=== PATIENT | female | born 1955 | race Caucasian/White ===

== ENCOUNTER → 2017-09-01 | Outpatient (CLI) | payer MEDICARE, OTHER ==
[2017-09-01 09:12] LABS: HCT 41.3 % (34.0-46.0); HGB 13.8 gm/dL (11.4-16.0); MCH 31.9 pg (25.0-35.0); MCHC 33.5 g/dL (31.0-37.0); MCV 95.2 fL (80.0-100.0); Platelet Count 118 k/uL (150-450); RBC 4.33 m/uL (3.80-5.40); RDW 13.9 % (11.5-15.5); WBC 6.1 k/uL (3.8-10.6)
[2017-09-01 09:25] LABS: Total Protein 6.5 g/dL (6.3-8.2)
[2017-09-01 09:27] LABS: Calcium 10.2 mg/dL (8.4-10.2); Potassium 4.3 mmol/L (3.5-5.1); Total Bilirubin 1.1 mg/dL (0.2-1.3)
[2017-09-01 09:48] LABS: Albumin 3.6 g/dL (3.5-5.0)
--- NOTE | 2017-09-01 16:27 | BD ---
EXAMINATION TYPE: MG DEXA axial skeleton. DATE OF EXAM: 09/01/2017 COMPARISON: NONE CLINICAL HISTORY: 61-year-old female asymptomatic postmenopausal state Height: 68 IN Weight: 170 LBS FRAX RISK QUESTIONS: Alcohol (3 or more units per day): NO Family History (Parent hip fracture): NO Glucocorticoids (More than 3mos): NO (Ex: prednisone, prednisolone, methylprednisolone, dexamethasone, and hydrocortisone). History of Fracture in Adulthood: NO Secondary Osteoporosis: 1. Type 1 Diabetes: NO 2. Hyperthyroidism: NO 3. Menopause before 45: YES AGE 41 4. Malnutrition: NO 5. Chronic liver disease: NO Rheumatoid Arthritis: NO Current Tobacco Use: NO RISK FACTORS HISTORY OF: Surgery to Hip(right/left): YES BRITTNEE HIP REPLACEMENTS When: PT UNSURE WHEN Active: NO Postmenopausal woman: AGE 41 Lost more than 2 inches in height since high school: YES 2-3" Frequent falls: YES MEDICATIONS: Additional Medications: PT HAS NO IDEA WHAT MEDICATIONS SHE TAKES EXAM MEASUREMENTS: Bone mineral densitometry was performed using the [employer] System. Bone mineral density as measured about the Lumbar spine is: ----- L1-L4(G/cm2): 0.912 T Score Values are as follows: ----- L2: -1.7 ----- L3: -1.7 ----- L4: -2.5 ----- L1-L4: -2.2 Bone mineral density BASELINE PT HAS HAD BRITTNEE HIP REPLACEMENTS. IMPRESSION: Osteopenia (T Score between -2.5 and -1). However, note that measurements border on osteoporosis. Shira ging only performed of the lumbar spine given prior bilateral hip replacements. There is slightly increased risk of fracture and the patient may be considered for treatment. Re-Screen 2-5 years. NOTE: T-SCORE=SD OF THE YOUNG ADULT MEAN.
--- NOTE | 2017-09-02 11:07 | MM ---
Reason for exam: screening (asymptomatic). Last mammogram was performed 12 years and 5 months ago. History: Patient is postmenopausal and is nulliparous. Family history of breast cancer in grandmother. Benign stereotactic core biopsy of the left breast, June 05, 2000. Excisional biopsy of the left breast, 1994. Excisional biopsy of the right breast, 1994. Physical Findings: A clinical breast exam by your physician is recommended on an annual basis and results should be correlated with mammographic findings. MG 3D Screening Mammo W/Cad Bilateral CC and MLO view(s) were taken. No prior studies available for comparison. The breast tissue is heterogeneously dense. This may lower the sensitivity of mammography. Finding: There are typically benign round calcifications in both breasts, greaster in the left breast. Previous mammotome biopsy in the left breast. There is no discrete abnormality. ASSESSMENT: Benign, BI-RAD 2 RECOMMENDATION: Routine screening mammogram of both breasts in 1 year.
== END | disposition home or self-care (01) ==
LOC: RADBDWWP 08:39
PROVIDERS: ATTEND Internal Medicine
DX: Z12.31 Encounter for screening mammogram for malignant neoplasm of breast (principal); M85.80 Other specified disorders of bone density and structure, unspecified site; Z13.9 Encounter for screening, unspecified; Z13.220 Encounter for screening for lipoid disorders; Z78.0 Asymptomatic menopausal state
CPT/HCPCS: 36415; 77063; 77067; 77080; 80053; 80061; 85027

== ENCOUNTER 2018-05-09 14:11 | Emergency (ER) | payer MEDICARE, OTHER ==
[2018-05-09 14:17] VITALS: BP 153/82; PULSE 110; RESP 18
--- NOTE | 2018-05-09 14:45 | ED ---
Fall HPI - General Chief Complaint: Fall Stated Complaint: Fall/Facial Injuries Time Seen by Provider: 05/09/18 14:22 Source: patient, RN notes reviewed, old records reviewed Mode of arrival: wheelchair - History of Present Illness Initial Comments: Patient is a 62-year-old female who presents the emergency department today with chief complaint of tripping and falling over her walker. Patient reports that she fell face first in her walker. She has bruising and swelling over the right eye right cheek and nose. She does have a laceration over her lip as well. Patient has a history of Marfan syndrome. Patient states that she is on [place]. Patient denies any loss of consciousness. She denies emergency department was placed in a c-collar. Patient reports she has had some pain within her right thumb as well but denies any other extremity or truncal injury. - Related Data Previous Rx's Medication Instructions Recorded Amoxic-Pot Clav 875-125Mg 1 tab PO Q12HR #20 tablet 05/09/18 [Augmentin 875-125] Erythromycin Ophth Oint [Romycin 1 applic RIGHT EYE QID #1 tube 05/09/18 Ophth Oint] Allergies Allergy/AdvReac Type Severity Reaction Status Date / Time No Known Allergies Allergy Verified 05/09/18 14:17 Review of Systems ROS Statement: Those systems with pertinent positive or pertinent negative responses have been documented in the HPI. ROS Other: All systems not noted in ROS Statement are negative. Past Medical History Past Medical History: Atrial Fibrillation History of Any Multi-Drug Resistant Organisms: None Reported Additional Past Surgical History / Comment(s): hip and bilateral knees Past Psychological History: No Psychological Hx Reported Smoking Status: Never smoker Past Alcohol Use History: None Reported Past Drug Use History: None Reported General Exam Limitations: no limitations General appearance: alert, in no apparent distress Head exam: Present: normocephalic, normal inspection. Absent: atraumatic Eye exam: Present: periorbital swelling (contusion over right eye, laceration 2 cm of upper R eyelid), periorbital tenderness. Absent: normal appearance ENT exam: Present: mucous membranes moist, TM's normal bilaterally, other ( laceration 1cm over bridge of nose. Soft tissue swelling of nose. Patient has no evidence of septal hematoma. ). Absent: normal exam Neck exam: Present: normal inspection. Absent: tenderness, meningismus, lymphadenopathy Respiratory exam: Present: normal lung sounds bilaterally. Absent: respiratory distress, wheezes, rales, rhonchi, stridor Cardiovascular Exam: Present: regular rate, normal rhythm, normal heart sounds. Absent: systolic murmur, diastolic murmur, rubs, gallop, clicks GI/Abdominal exam: Present: soft, normal bowel sounds. Absent: distended, tenderness, guarding, rebound, rigid Right Elbow exam: Present: normal inspection, full ROM Forearm Wrist exam: Present: normal inspection, full ROM Hand Wrist exam: Present: tenderness (thumb), swelling (to R thumb, she pas pain with flexion from DIP ). Absent: normal inspection Neuro motor exam: Present: wrist extension intact, thumb opposition intact, thumb IP flexion intact, thumb adduction intact, fingers 2-5 abduction intact Back exam: Present: normal inspection Neurological exam: Present: alert Psychiatric exam: Present: normal affect, normal mood Course Vital Signs 05/09/18 14:13 Pulse Rate 110 H Respiratory 18 Rate Blood Pressure 153/82 O2 Sat by Pulse 99 Oximetry Procedures - Laceration Laceration #1 Site: face (R eyelid) Size (cm): 2 Description: linear Anesthetic Used: lidocaine 1% Anesthesia Technique: local infiltration Amount (mls): 2 Pre-repair: wound explored Type of Sutures: nylon Size of Sutures: 6-0 Number of Sutures: 2 Technique: simple, interrupted Patient Tolerated Procedure: well, no complications Laceration #2 Site: face (nose) Size (cm): 1 Description: flap Depth: simple, single layer Anesthetic Used: lidocaine 1% Anesthesia Technique: local infiltration Amount (mls): 2 Pre-repair: wound explored, irrigated extensively Type of Sutures: nylon Size of Sutures: 6-0 Number of Sutures: 3 Technique: simple, interrupted Patient Tolerated Procedure: well, no complications Laceration #3 Site: lip Size (cm): 3 Description: irregular Depth: simple, single layer Anesthetic Used: lidocaine 1% Anesthesia Technique: local infiltration Amount (mls): 3 Pre-repair: wound explored, irrigated extensively Type of Sutures: other (rapide ) Size of Sutures: 5-0 Number of Sutures: 7 Technique: simple, interrupted Patient Tolerated Procedure: well, no complications - Orthopedic Splinting/Casting Injury #1 Side: right Upper Extremity Injury Location: hand Upper Extremity Immobilizer: thumb spica, Yong wrap, synthetic pre-padded splint Additional Comments: Patient is NV intact. Medical Decision Making - Medical Decision Making 62 year old female on eliquis presents with trip fall on her walker, and falling on R hand and face. Patient has significant hematoma developing on nose and R eye. She had 2cm laceration over R eyelid that was closed, and 1cm laceration over Nose that was closed wit suture. She has pain withROM of right thumb, on my impressionof xray evidence of osteoarthritis, and appear to be small fracture at DIP of R thumb. Patient placed in thumb spica splint, givne referral to orthopedic. Patient underwent CT facial bones, brain, and cspine. CT brain shows old infarct, negative for acute process. She has evidence of nasla bone fracture. No evidence of septal hematoma. She has bruising to lip, and loaceration in lip that was closed with suture as well. Patient will be placed on augmenting due to open nasal bone fracture with laceration. Patient has been adcised on head injury instructions. She is going hoem with2 caregivers that will monitor her. Discussed PCP ortho and ENT follow up. - Radiology Data Radiology results: report reviewed Degenerative first-degree C4-C5 spinal listhesis. No fracture. Spondylitic changes. 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 No acute intracranial abnormality noted. Nasal bone fracture. Right side. No soft tissue swelling. Small maxillary sinus mucous retention cyst. Is traumatic Marta arthritis and carpets. Osteopenia. No acute fracture noted. N Disposition Clinical Impression: Fall, Facial laceration, Thumb fracture, Nasal fracture, Facial contusion Disposition: HOME SELF-CARE Condition: Good Instructions: Nasal Fracture (ED), Thumb Fracture (ED) Additional Instructions: Patient has a follow-up with ENT specialist. Take the medication as prescribed. Patient needs to be monitored for the next 24-48 hours. If there is any signs of altered mental status including change in behavior, responsiveness or severe vomiting Patient needs return to emergency department immediately for reevaluation. Prescriptions: Amoxic-Pot Clav 875-125Mg [Augmentin 875-125] 1 tab PO Q12HR #20 tablet Erythromycin Ophth Oint [Romycin Ophth Oint] 1 applic RIGHT EYE QID #1 tube Is patient prescribed a controlled substance at d/c from ED?: No Referrals: Justo Echeverria MD [Primary Care Provider] - 1-2 days Jason Godfrey MD [STAFF PHYSICIAN] - 1-2 days Samy Beavers MD [STAFF PHYSICIAN] - 1-2 days Time of Disposition: 16:12
--- NOTE | 2018-05-09 15:21 | CT ---
EXAMINATION TYPE: CT brain eh quijano DATE OF EXAM: 05/09/2018 COMPARISON: None HISTORY: trauma, fall today. no contrast. no previous. CT DLP: 2065.1 (combined) mGycm Automated exposure control for dose reduction was used. TECHNIQUE: CT scan of the head and cervical spine are performed without contrast. FINDINGS: There is some cerebral cortical atrophy. There is no mass effect nor midline shift. There is no sign of intracranial hemorrhage. There is old right posterior frontal lobe encephalomalacia. T here is hypodensity in the anterior right internal capsule. There is thickening of the calvarium. The vertebra have fairly normal alignment. There is 4 mm anterior subluxation of C4 in relation to C5 without significant narrowing of the spinal canal. There is narrowing of C5-6 C6-7 disc spaces with spur formation. Facet joints are intact. The skull base is intact. There is no evidence of a fracture . IMPRESSION: There is degenerative first-degree C4-5 spondylolisthesis. No fracture. Spondylotic changes. Old right frontal lobe infarct and chronic small vessel ischemia. No acute intracranial abnormality.
--- NOTE | 2018-05-09 15:24 | CT ---
EXAMINATION TYPE: CT facial bones wo con DATE OF EXAM: 05/09/2018 COMPARISON: None HISTORY: trauma, fall today. no contrast. no previous. Pain CT DLP: 2065.1 (combined) mGycm Automated exposure control for dose reduction was used. TECHNIQUE: CT scan of the sinuses is performed without contrast, axial images are obtained, coronal r eformatted images are also reviewed. FINDINGS: The mandibular ring is intact. Zygomatic arches are intact. Maxilla is intact. There are sm all mucous retention cysts in the maxillary sinuses. There is fracture of the nasal bone on the right side with some depression of the fragments up to 4 mm. There is right side periorbital and nasal sof t tissue swelling. There is no evidence of retro-orbital mass. There is no blowout fracture. There is moderate osteoarthritis in the right temporomandibular joint. IMPRESSION: Nasal bone fracture. Right side periorbital soft tissue swelling. Small maxillary sinus m ucous retention cysts.
[2018-05-09] MEDS ORDERED: DIPH,PERTUS(ACELL)TETVAC-LF 0.5 ML VIAL IM ONE (15:33)
[2018-05-09] MEDS ORDERED: LIDOCAINE 1% INJ 10MG/ML (20 ML MDV) SQ STA (15:33)
[2018-05-09] MEDS ORDERED: AMOXIC-POT CLAV 875MG STARTER 2 EACH TABLET PO STA (15:33)
--- NOTE | 2018-05-09 15:45 | XR ---
EXAMINATION TYPE: XR hand complete RT DATE OF EXAM: 05/09/2018 COMPARISON: NONE HISTORY: Pain TECHNIQUE: 3 views FINDINGS: Metacarpal appear intact. There is narrowing of the joint spaces. There is deformity of the lunate and scaphoid consistent with old fractures. I see no acute fracture. 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 Osteopenia. No acute fracture seen.
== END 2018-05-09 17:24 | disposition home or self-care (01) ==
LOC: EC 14:11
DX: S02.2XXB Fracture of nasal bones, initial encounter for open fracture (principal); S62.521A Displaced fracture of distal phalanx of right thumb, initial encounter for closed fracture; S01.111A Laceration without foreign body of right eyelid and periocular area, initial encounter; M19.041 Primary osteoarthritis, right hand; Z86.73 Personal history of transient ischemic attack (TIA), and cerebral infarction without residual deficits; S01.511A Laceration without foreign body of lip, initial encounter; M43.12 Spondylolisthesis, cervical region; M47.812 Spondylosis without myelopathy or radiculopathy, cervical region; I67.82 Cerebral ischemia; J34.1 Cyst and mucocele of nose and nasal sinus; M85.88 Other specified disorders of bone density and structure, other site; Q87.40 Marfan syndrome, unspecified; Z79.899 Other long term (current) drug therapy; Z23 Encounter for immunization; W01.0XXA Fall on same level from slipping, tripping and stumbling without subsequent striking against object, initial encounter; Y93.01 Activity, walking, marching and hiking; Y92.22 Religious institution as the place of occurrence of the external cause
CPT/HCPCS: 99284 ×2; 90471 ×2; 12014 ×2; 29125 ×2; 73130; 72125; 70486; 70450; 90715; J2001

== ENCOUNTER 2018-10-17 19:57 | Emergency (ER) | payer MEDICARE, OTHER ==
[2018-10-17 20:12] VITALS: BP 129/85; PULSE 97; RESP 18; TEMP 98.3
--- NOTE | 2018-10-17 20:41 | ED ---
General Adult HPI - General Chief complaint: Abdominal Pain Stated complaint: Abd pain Time Seen by Provider: 10/17/18 20:21 Source: patient Mode of arrival: ambulatory Limitations: physical limitation - History of Present Illness Initial comments: Dictation was produced using [employer] dictation software. please excuse any grammatical, word or spelling errors. Chief Complaint: 63-year-old female with past medical history of pancreatic disease, Marfan syndrome, atrial fibrillation presents with bruising and pain to the left groin. History of Present Illness: 63-year-old female presents today with bruising and pain to the left groin area. Patient states that she noticed this morning. Patient has a history of pancreatic issues that were evaluated at [facility] several years back. Patient states she saw a specialist regarding her pancreatic issue however they decided not to do any operative intervention. P atient states she has no nausea vomiting. Denies any back pain. Denies any abdominal pain. 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 The ROS documented in this emergency department record has been reviewed and confirmed by me. Those systems with pertinent positive or negative responses have been documented in the HPI. All other systems are other negative and/or noncontributory. PHYSICAL EXAM: General Impression: Alert and oriented x3, not in acute distress HEENT: Normocephalic atraumatic, extra-ocular movements intact, pupils equal and reactive to light bilaterally, mucous membranes moist. Cardiovascular: Heart regular rate and rhythm, S1&S2 audible, no murmurs, rubs or gallops Chest: Lungs clear to auscultation bilaterally, no rhonchi, no wheeze, no rales Abdomen: Bowel sounds present, abdomen soft, , non-distended, no organomegaly, 10 x 10 cm area of bruising over the left groin, no palpable mass with Valsalva Musculoskeletal: Pulses present and equal in all extremities, no peripheral edema Motor: no focal deficits noted Neurological: CN II-XII grossly intact, no focal motor or sensory deficits noted Skin: Intact with no visualized rashes Psych: Normal affect and mood ED course: 63-year-old female presents with chief complaint of left groin bruising and pain. Patient has a history of nonoperable pancreatic disease. Vital signs upon arrival are within acceptable limits. Patient's well- appearing. Laboratory evaluation obtained. CBC unremarkable. Patient has thrombocytopenia of 123. Metabolic panel is unremarkable. Cardiac enzymes negative. Chest x- ray shows possible pneumonia. Patient does not have any symptoms of coughing or shortness of breath or hypoxia. CT abdomen and pelvis with contrast was obtained demonstrating soft tissue mass at the level of the pancreatic head. Is also possible pneumonitis of the right lung base. There is also a 4.5 cm abdom inal aortic aneurysm with ectasia at the common iliac artery. Given the findings of bruising in the groin area there is concern for retroperitoneal bleeding. CT does not suggest any evidence of active retroperitoneal bleeding at this time. Patient still mildly symptomatic at the lower abdominal area. Given degree of symptoms and bruising to the groin area and is concerned that there is retroperitoneal bleeding. Discussed patient case with [facility] to accept the patient. Patient case was discussed with Dr. Escudero who is willing to accept the transfer. EKG interpretation: Ventricular rate 89, atrial fibrillation, QS 126, QTC 452. No CA prolongation, no QTC prolongation, no ST or T-wave changes noted. No old EKG for comparison - Related Data Home Medications Medication Instructions Recorded Confirmed Alendronate Sodium [Fosamax] 70 mg PO MORGAN 10/17/18 10/17/18 Apixaban [Eliquis] 5 mg PO BID 10/17/18 10/17/18 Calcium Carbonate/Vitamin D3 1 cap PO BID 10/17/18 10/17/18 [Calcium 600-Vit D3 500 Softgel] Carvedilol [Coreg] 6.25 mg PO BID 10/17/18 10/17/18 Docusate [Colace] 100 mg PO DAILY PRN 10/17/18 10/17/18 Escitalopram [Lexapro] 15 mg PO DAILY 10/17/18 10/17/18 Esomeprazole Magnesium [NexIUM] 40 mg PO DAILY 10/17/18 10/17/18 Ferrous Sulfate [Feosol] 325 mg PO DAILY 10/17/18 10/17/18 Furosemide [Lasix] 40 mg PO DAILY 10/17/18 10/17/18 Multivitamins, Thera [Multivitamin 1 tab PO DAILY 10/17/18 10/17/18 (formulary)] Potassium Chloride ER [K-Dur 20] 20 meq PO DAILY 10/17/18 10/17/18 Spironolactone [Aldactone] 25 mg PO BID 10/17/18 10/17/18 Allergies Allergy/AdvReac Type Severity Reaction Status Date / Time No Known Allergies Allergy Verified 10/17/18 20:25 Review of Systems ROS Statement: Those systems with pertinent positive or pertinent negative responses have been documented in the HPI. ROS Other: All systems not noted in ROS Statement are negative. Past Medical History Past Medical History: Atrial Fibrillation Additional Past Medical History / Comment(s): Marfans syndrome, intellectual disability History of Any Multi-Drug Resistant Organisms: None Reported Additional Past Surgical History / Comment(s): hip and bilateral knees Past Psychological History: No Psychological Hx Reported Smoking Status: Never smoker Past Alcohol Use History: None Reported Past Drug Use History: None Reported General Exam Limitations: physical limitation Course Vital Signs 10/17/18 20:08 Temperature 98.3 F Pulse Rate 97 Respiratory 18 Rate Blood Pressure 129/85 O2 Sat by Pulse 97 Oximetry Medical Decision Making - Lab Data Result diagrams: 10/17/18 20:40 10/17/18 20:40 Lab Results 10/17/18 10/17/18 10/17/18 Range/Units 20:40 20:40 20:40 WBC 6.1 (3.8-10.6) k/uL RBC 3.97 (3.80-5.40) m/uL Hgb 12.5 (11.4-16.0) gm/dL Hct 36.4 (34.0-46.0) % MCV 91.6 (80.0-100.0) fL MCH 31.6 (25.0-35.0) pg MCHC 34.5 (31.0-37.0) g/dL RDW 16.7 H (11.5-15.5) % Plt Count 123 L (150-450) k/uL Neutrophils % 71 % Lymphocytes % 15 % Monocytes % 9 % Eosinophils % 2 % Basophils % 0 % Neutrophils # 4.3 (1.3-7.7) k/uL Lymphocytes # 0.9 L (1.0-4.8) k/uL Monocytes # 0.5 (0-1.0) k/uL Eosinophils # 0.1 (0-0.7) k/uL Basophils # 0.0 (0-0.2) k/uL Anisocytosis Slight Sodium 141 (137-145) mmol/L Potassium 3.5 (3.5-5.1) mmol/L Chloride 105 (98-107) mmol/L Carbon Dioxide 30 (22-30) mmol/L Anion Gap 6 mmol/L BUN 33 H (7-17) mg/dL Creatinine 0.96 (0.52-1.04) mg/dL Est GFR (CKD-EPI)AfAm 72 (>60 ml/min/1.73 sqM) Est GFR (CKD-EPI)NonAf 62 (>60 ml/min/1.73 sqM) Glucose 106 H (74-99) mg/dL Calcium 9.8 (8.4-10.2) mg/dL Magnesium 2.1 (1.6-2.3) mg/dL Total Bilirubin 0.8 (0.2-1.3) mg/dL AST 18 (14-36) U/L ALT 12 (9-52) U/L Alkaline Phosphatase 54 (38-126) U/L Troponin I <0.012 (0.000-0.034) ng/mL Total Protein 6.4 (6.3-8.2) g/dL Albumin 3.5 (3.5-5.0) g/dL Lipase 98 (23-300) U/L Disposition Clinical Impression: Abdominal aortic aneurysm Disposition: OTHER INSTITUTION NOT DEFINED Condition: Fair Referrals: Justo Echeverria MD [Primary Care Provider] - 1-2 days Time of Disposition: 22:50 - Out of Hospital Transfer - Req. Specs Out of Hospital Transfer - Requested Specifics: Other Emergency Center ([facility])
[2018-10-17 20:57] LABS: Anisocytosis Slight; Basophils % (A) 0 %; Eosinophils # (A) 0.1 k/uL (0-0.7); Eosinophils % (A) 2 %; HCT 36.4 % (34.0-46.0); HGB 12.5 gm/dL (11.4-16.0); Lymphocytes # (A) 0.9 k/uL (1.0-4.8); Lymphocytes % (A) 15 %; MCH 31.6 pg (25.0-35.0); MCHC 34.5 g/dL (31.0-37.0); MCV 91.6 fL (80.0-100.0); Mean Platelet Volume 10.6; Monocytes # (A) 0.5 k/uL (0-1.0); Monocytes % (A) 9 %; Neutrophils # (A) 4.3 k/uL (1.3-7.7); Neutrophils % (A) 71 %; Platelet Count 123 k/uL (150-450); RBC 3.97 m/uL (3.80-5.40); RDW 16.7 % (11.5-15.5); WBC 6.1 k/uL (3.8-10.6)
[2018-10-17 21:12] LABS: Albumin 3.5 g/dL (3.5-5.0); Calcium 9.8 mg/dL (8.4-10.2); Magnesium 2.1 mg/dL (1.6-2.3); Potassium 3.5 mmol/L (3.5-5.1); Total Bilirubin 0.8 mg/dL (0.2-1.3); Total Protein 6.4 g/dL (6.3-8.2)
--- NOTE | 2018-10-17 21:32 | XR ---
EXAMINATION TYPE: XR chest 2V DATE OF EXAM: 10/17/2018 COMPARISON: NONE HISTORY: Chest pain TECHNIQUE: Frontal and lateral views of the chest are obtained. FINDINGS: The heart is enlarged. Suspect basilar airspace disease is present. Patient is rotated. No pneumothorax or evident effusion. Aorta is dense and possibly aneurysmal. Question perihilar increas ed density in the right. IMPRESSION: Rotated exam. Difficult to exclude underlying pneumonia. Follow-up is recommended. Lo weiner cardiomegaly.
--- NOTE | 2018-10-17 22:02 | CT ---
EXAMINATION TYPE: CT abdomen pelvis w con DATE OF EXAM: 10/17/2018 COMPARISON: Chest x-ray same date HISTORY: Abdomen pain. Hx afib, Marfan's syndrome CT DLP: 820.8 mGycm Automated exposure control for dose reduction was used. TECHNIQUE: Helical acquisition of images from the lung bases through the pelvis have been completed. CONTRAST: Performed without Oral Contrast and with IV Contrast, patient injected with 100 mL of Isovue 300. FINDINGS: The heart is enlarged. LUNG BASES: The airspace disease seen on x-ray is confirmed along the right hemidiaphragm posteriorly , there is focal eventration, diaphragmatic hernia posteriorly on the right. AORTA: Abdominal aorta measures approximate 4.5 cm distally, common iliac artery is ectatic on the r ight.. LIVER/GB: Cystic foci are scattered within the liver. Approximately 3-4 subcentimeter foci are presen t. Gallbladder shows dependent density compatible with stones.. PANCREAS: At the level of the head of the pancreas there is a soft tissue mass measuring approximatel y 3.7 x 2.4 x 3.5 cm. SPLEEN: Cystic focus is subcentimeter within the anterior aspect of the spleen, spleen is enlarged. ADRENALS: No significant abnormality is seen. KIDNEYS: No significant abnormality is seen. REPRODUCTIVE ORGANS: No uterus seen. There is a cystic focus just cephalad to the bladder which measu res approximately 5.9 cm which could possibly represent ovarian lesion. BOWEL: No significant abnormality is seen. FREE AIR: No Free Air visible. ASCITES: None visible. PELVIC ADENOPATHY: None visualized. RETROPERITONEAL ADENOPATHY: No Retroperitoneal Adenopathy visible. URINARY BLADDER: No significant abnormality is seen. OSSEOUS STRUCTURES: Postop changes to the hips causes streak artifact may limit sensitivity.. Compre ssion deformity is noted at the L2 vertebral body with loss of height of approximately 50%, focal hi encies present within the L4 vertebral body which is indeterminate to the left midline IMPRESSION: THERE IS A SOFT TISSUE MASS AT THE LEVEL OF THE HEAD OF THE PANCREAS. SPLENOMEGALY. INFRARENAL ABDOMI NAL AORTIC ANEURYSM. CHOLELITHIASIS. CARDIOMEGALY. POSSIBLE PNEUMONITIS AT THE RIGHT LUNG BASE. CORRE LATE TO EXCLUDE PNEUMONIA. CANNOT EXCLUDE OVARIAN CYSTADENOMA, CYSTADENOCARCINOMA, OSSEOUS ABNORMALIT IES, CONSIDER BONE SCAN, FOLLOW-UP.
== END 2018-10-17 23:34 | disposition other institution (70) ==
LOC: EC 19:57
DX: I71.4 Abdominal aortic aneurysm, without rupture (principal); I48.91 Unspecified atrial fibrillation; Q87.40 Marfan syndrome, unspecified; Z79.01 Long term (current) use of anticoagulants; Z79.899 Other long term (current) drug therapy
CPT/HCPCS: 36415; 93005; 80053; 83690; 83735; 84484; 85025; 71046; 74177; 99285; Q9967

== ENCOUNTER → 2018-12-03 | Outpatient (CLI) | payer MEDICARE, OTHER ==
[2018-12-03 08:49] LABS: Basophils % (A) 0 %; Eosinophils % (A) 1 %; HCT 39.3 % (34.0-46.0); HGB 13.3 gm/dL (11.4-16.0); Lymphocytes # (A) 0.8 k/uL (1.0-4.8); Lymphocytes % (A) 15 %; MCH 32.4 pg (25.0-35.0); MCHC 33.8 g/dL (31.0-37.0); MCV 95.9 fL (80.0-100.0); Mean Platelet Volume 7.6; Monocytes # (A) 0.4 k/uL (0-1.0); Monocytes % (A) 9 %; Neutrophils # (A) 3.8 k/uL (1.3-7.7); Neutrophils % (A) 72 %; Platelet Count 119 k/uL (150-450); RDW 13.9 % (11.5-15.5); WBC 5.2 k/uL (3.8-10.6)
[2018-12-03 16:50] LABS: ALT 12 U/L (8-44); AST 16 U/L (13-35); Albumin/Globulin Ratio 1.61 (1.60-3.17); Alkaline Phosphatase 43 U/L (41-126); Cholesterol 123 mg/dL (0-200); Globulin 2.3 g/dL (1.6-3.3); Glucose 78 mg/dL (70-110); Total Bilirubin 1.1 mg/dL (0.3-1.2); Triglycerides <50.0 mg/dL (0.0-149.0); VLDL Calculation 9.98 mg/dL (5.00-40.00)
[2018-12-03 17:06] LABS: Hemoglobin A1C 5.2 % (4.0-6.0)
== END | disposition home or self-care (01) ==
LOC: LABWHC1 07:49
PROVIDERS: ATTEND Nurse Practitioner Family
DX: Z51.81 Encounter for therapeutic drug level monitoring (principal); Z79.899 Other long term (current) drug therapy
CPT/HCPCS: 36415; 80061; 80076; 82565; 82947; 83036; 84439; 84443; 84520; 85025

== ENCOUNTER 2019-01-10 11:49 | Emergency (ER) | payer MEDICARE, OTHER ==
[2019-01-10 11:58] VITALS: RESP 18
--- NOTE | 2019-01-10 13:30 | CT ---
EXAMINATION TYPE: CT facial bones wo con DATE OF EXAM: 01/10/2019 COMPARISON: 05/09/2018 HISTORY: trip and fall CT DLP: 976.5 (brain, cervical and facial) mGycm Automated exposure control for dose reduction was used. TECHNIQUE: CT scan of the sinuses is performed without contrast, axial images are obtained, coronal r eformatted images are also reviewed. FINDINGS: Hyperostosis of the calvarium noted. Appears to be arachnoid cyst or evidence of encephalom alacia involving the right parietal lobe superiorly. Globes are intact. Oropharynx and nasopharynx symmetric. Motion artifact limits assessment of the mandible and maxilla. Atherosclerotic change of the vasculature. Degenerative change with facet arthropathy of the vertebra l column. Evidence of previous trauma to the nasal bones noted. Mucous retention cyst noted within th e maxillary sinus bilaterally. IMPRESSION: 1. No acute fracture. Exam limited by motion artifact.
--- NOTE | 2019-01-10 13:38 | CT ---
EXAMINATION TYPE: CT brain cspine wo con DATE OF EXAM: 01/10/2019 COMPARISON: 05/01/2018 HISTORY: Trip and fall CT DLP: 976.5 (brain, cervical and facial) mGycm Automated exposure control for dose reduction was used. TECHNIQUE: CT scan of the head and cervical spine are performed without contrast. FINDINGS: Generalized degenerative change noted with evidence of a area of low attenuation overlyin g the right frontal parietal region which may represent arachnoid cyst rather than encephalomalacia b ut is retrospectively stable. Inner table osteoma on the left in the differential diagnosis. Hyperost osis of the calvarium seen. Intracranial atherosclerotic changes are noted. No midline shift. General ized degenerative change with low-attenuation the white matter is nonspecific and may been the basis of remote white matter ischemia. No acute hemorrhage. Assessment of cervical spine is limited. There is multilevel degenerative disc disease. Severe change s at C5-C6 with posterior spondylosis and probable canal stenosis. Multilevel facet arthropathy and f oraminal encroachment noted. There is a 3 mm retrolisthesis of C5 relative to C6. Nonspecific calcifi cation along the base of the time. IMPRESSION: 1. There is no acute fracture or dislocation evident in the cervical spine. Severe multilevel degener ative disc disease and retrolisthesis of C5 relative to C6 with probable canal stenosis. 2. No acute intracranial hemorrhage, mass effect, or midline shift is seen. Degenerative and nonspeci fic white matter changes most typical remote microvascular ischemia. Findings involving the right fro ntal parietal lobe may been the basis of arachnoid cyst rather than related to remote ischemia or enc ephalomalacia.
--- NOTE | 2019-01-10 14:21 | XR ---
Bilateral knees HISTORY: Pain 4 views of each knee are submitted. 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 Bone mineralization is reduced. There is varus deformity p resent within the right knee. There are possible dystrophic calcifications present in the suprapatell ar region of the right knee medially. Vascular calcifications are present. Possible dystrophic calcif ication along the distal left femur medially. No sizable joint effusion. Popliteal artery appears ect atic on the left. IMPRESSION: Difficult to exclude popliteal aneurysm on the left. Osteophyte sclerosis. Postop changes . Varus deformity right knee. No fracture or dislocation.
--- NOTE | 2019-01-10 14:22 | XR ---
EXAMINATION TYPE: XR chest 2V DATE OF EXAM: 01/10/2019 COMPARISON: Prior chest x-ray 10/17/2018 HISTORY: Pain TECHNIQUE: Frontal and lateral views of the chest are obtained on 3 images. FINDINGS: The heart remains markedly enlarged. No evident airspace disease, pneumothorax, or pleural effusion. Marked arthropathy noted within the shoulders. There are overlying artifacts present. Aort a is dense. IMPRESSION: Persistent cardiomegaly.
--- NOTE | 2019-01-10 14:50 | ED ---
General Adult HPI - General Chief complaint: Fall Stated complaint: Fall Time Seen by Provider: 01/10/19 12:10 Source: family, RN notes reviewed, Caregiver Mode of arrival: EMS Limitations: no limitations - History of Present Illness Initial comments: 63-year-old female presents to the emergency determine for chief complaint of fall. Patient does have intact full disability. Patient had a trip and fall earlier today falling on the bilateral knees. Patient did hit the right side of her head as well. No neck pain. No other pain. Patient walking on the bilateral legs. No loss of consciousness. Patient is on Xarelto. Patient has no other complaints at this time including shortness of breath, chest pain, abdominal pain, nausea or vomiting, headache, or visual changes. - Related Data Home Medications Medication Instructions Recorded Confirmed Calcium Carbonate/Vitamin D3 1 cap PO BID 10/17/18 01/10/19 [Calcium 600-Vit D3 500 Softgel] Docusate [Colace] 100 mg PO DAILY PRN 10/17/18 01/10/19 Escitalopram [Lexapro] 15 mg PO DAILY 10/17/18 01/10/19 Esomeprazole Magnesium [NexIUM] 40 mg PO DAILY 10/17/18 01/10/19 Ferrous Sulfate [Feosol] 325 mg PO DAILY 10/17/18 01/10/19 Furosemide [Lasix] 40 mg PO DAILY 10/17/18 01/10/19 Potassium Chloride ER [K-Dur 20] 20 meq PO DAILY 10/17/18 01/10/19 Spironolactone [Aldactone] 25 mg PO BID 10/17/18 01/10/19 Apixaban [Eliquis] 2.5 mg PO BID 01/10/19 01/10/19 Certavite 1 tab PO DAILY 01/10/19 01/10/19 Ketoconazole [Ketoconazole 2%] 1 applic TOPICAL BID 01/10/19 01/10/19 Losartan [Cozaar] 25 mg PO DAILY 01/10/19 01/10/19 Allergies Allergy/AdvReac Type Severity Reaction Status Date / Time No Known Allergies Allergy Verified 01/10/19 12:52 Review of Systems ROS Statement: Those systems with pertinent positive or pertinent negative responses have been documented in the HPI. ROS Other: All systems not noted in ROS Statement are negative. Past Medical History Past Medical History: Atrial Fibrillation Additional Past Medical History / Comment(s): Marfans syndrome, intellectual disability History of Any Multi-Drug Resistant Organisms: None Reported Additional Past Surgical History / Comment(s): hip and bilateral knees Past Psychological History: No Psychological Hx Reported Smoking Status: Never smoker Past Alcohol Use History: None Reported Past Drug Use History: None Reported General Exam Limitations: no limitations General appearance: alert, in no apparent distress Head exam: Present: atraumatic, normocephalic, normal inspection Eye exam: Present: normal appearance, PERRL, EOMI. Absent: scleral icterus, conjunctival injection, periorbital swelling ENT exam: Present: normal exam, normal oropharynx, mucous membranes moist, TM's normal bilaterally, normal external ear exam, other (Patient does have a abrasion noted to the right cheek. Small 0.5 cm superficial laceration to the right inner lip. Small abrasion to the outer lip. No through and through.) Neck exam: Present: normal inspection, full ROM. Absent: tenderness, menin gismus, lymphadenopathy Respiratory exam: Present: normal lung sounds bilaterally. Absent: respiratory distress, wheezes, rales, rhonchi, stridor Cardiovascular Exam: Present: regular rate, normal rhythm, normal heart sounds. Absent: systolic murmur, diastolic murmur, rubs, gallop, clicks GI/Abdominal exam: Present: soft, normal bowel sounds. Absent: distended, tenderness, guarding, rebound, rigid Extremities exam: Present: full ROM (Full range of motion of bilateral knees.), tenderness (Mild anterior knee tenderness.), normal capillary refill (Capillary refill is 72 pulse 2+ in lower extremities bilaterally), other (Small abrasions noted to the bilateral knees). Absent: pedal edema, joint swelling, calf tenderness Course Vital Signs 01/10/19 01/10/19 11:54 14:08 Pulse Rate 98 101 H Respiratory 18 18 Rate Blood Pressure 148/103 133/99 O2 Sat by Pulse 100 96 Oximetry Medical Decision Making - Medical Decision Making 63-year-old female presents to the emergency determine for chief complaint of trip and fall. Patient did hit the right side of her face. Small superficial laceration in the right inner lip. No need for sutures. This was cleaned. Abrasions noted to the bilateral knees. Patient is ambulatory on the bilateral knees. No pain. Full range of motion and neurovascular status intact. CT C- spine shows no acute fracture or dislocation evident. There are degenerative changes and retrolisthesis diagnosis with probable canal stenosis. Patient is not complaining of any neck pain. There is also no acute intracranial hemorrhage. Degenerative changes. There is a rapid cyst versus remote ischemia or encephalomalacia noted to the right frontal lobe. A CT showed no acute fracture. Chest x-ray showed persistent cardiomegaly. No pneumothorax. X-ray of the bilateral knees shows difficulty to exclude popliteal aneurysm on the left due to ectatic nature. There is deformity of the right knee. No fracture or dislocation. Patient will follow up for popliteal artery aneurysm. At this time I do not think this is anything acute as injury is not consistent with this and she does not have any significant knee pain. Patient will follow-up with orthopedics and vascular for this. Will return if she has any worsening symptoms. Disposition Clinical Impression: Knee pain Disposition: HOME SELF-CARE Condition: Good Instructions (If sedation given, give patient instructions): Knee Pain (ED), Head Injury (ED) Additional Instructions: Please follow up with orthopedics and vascular surgery for possible popliteal artery aneurysm of the left knee. Please follow-up with primary care for head injury. If patient has any worsening symptoms return to the emergency department. Is patient prescribed a controlled substance at d/c from ED?: No Referrals: Justo Echeverria MD [Primary Care Provider] - 1-2 days Andrew Wolf MD [STAFF PHYSICIAN] - 1-2 days Agustín Robles DO [STAFF PHYSICIAN] - 1-2 days Time of Disposition: 15:17
[2019-01-10 15:28] VITALS: BP 145/96; PULSE 88
== END 2019-01-10 15:28 | disposition home or self-care (01) ==
LOC: EEVIPCON 11:49 → EC 11:49
DX: S80.212A Abrasion, left knee, initial encounter (principal); S80.211A Abrasion, right knee, initial encounter; S01.511A Laceration without foreign body of lip, initial encounter; I51.7 Cardiomegaly; I48.91 Unspecified atrial fibrillation; Z79.01 Long term (current) use of anticoagulants; Z79.899 Other long term (current) drug therapy; W01.0XXA Fall on same level from slipping, tripping and stumbling without subsequent striking against object, initial encounter; Y92.830 Public park as the place of occurrence of the external cause
CPT/HCPCS: 70450; 70486; 71046; 72125; 99284

== ENCOUNTER 2019-01-27 17:02 | Emergency (ER) | payer MEDICARE, OTHER ==
[2019-01-27 17:35] VITALS: RESP 18; TEMP 98.7
--- NOTE | 2019-01-27 18:03 | XR ---
EXAMINATION TYPE: XR tibia fibula LT DATE OF EXAM: 01/27/2019 COMPARISON: NONE HISTORY: Leg pain TECHNIQUE: 4 views FINDINGS: There is a left knee prosthesis. There is osteopenia. I see no fracture nor dislocation. IMPRESSION: No fracture seen.
--- NOTE | 2019-01-27 19:09 | ED ---
Lower Extremity Injury HPI - General Chief Complaint: Extremity Injury, Lower Stated Complaint: fall, lt leg injury Time Seen by Provider: 01/27/19 19:00 Source: RN notes reviewed, old records reviewed, Caregiver Mode of arrival: wheelchair Limitations: altered mental status - History of Present Illness Initial Comments: This is a 63-year-old female the ER status post fall fall with left knee injury left knee swelling. Patient is on blood thinners. Patient has not had any recent injury. No other injury noted from fall MD Complaint: knee injury (left), leg injury (left) Injury: Thigh: Left, Leg: Left Severity: mild Severity scale (1-10): 3 Improves With: nothing Worsens With: nothing Context: fall - Related Data Home Medications Medication Instructions Recorded Confirmed Calcium Carbonate/Vitamin D3 1 cap PO BID 10/17/18 01/27/19 [Calcium 600-Vit D3 500 Softgel] Docusate [Colace] 100 mg PO DAILY PRN 10/17/18 01/27/19 Escitalopram [Lexapro] 15 mg PO DAILY 10/17/18 01/27/19 Esomeprazole Magnesium [NexIUM] 40 mg PO DAILY 10/17/18 01/27/19 Ferrous Sulfate [Feosol] 325 mg PO DAILY 10/17/18 01/27/19 Furosemide [Lasix] 40 mg PO DAILY 10/17/18 01/27/19 Potassium Chloride ER [K-Dur 20] 20 meq PO DAILY 10/17/18 01/27/19 Spironolactone [Aldactone] 25 mg PO BID 10/17/18 01/27/19 Apixaban [Eliquis] 2.5 mg PO BID 01/10/19 01/27/19 Certavite 1 tab PO DAILY 01/10/19 01/27/19 Ketoconazole [Ketoconazole 2%] 1 applic TOPICAL BID 01/10/19 01/27/19 Losartan [Cozaar] 25 mg PO DAILY 01/10/19 01/27/19 Allergies Allergy/AdvReac Type Severity Reaction Status Date / Time No Known Allergies Allergy Verified 01/27/19 19:49 Review of Systems ROS Statement: Those systems with pertinent positive or pertinent negative responses have been documented in the HPI. ROS Other: All systems not noted in ROS Statement are negative. Past Medical History Past Medical History: Atrial Fibrillation Additional Past Medical History / Comment(s): Marfans syndrome, intellectual disability, AAA and aneurism behing left knee History of Any Multi-Drug Resistant Organisms: None Reported Additional Past Surgical History / Comment(s): hip and bilateral knees Past Psychological History: No Psychological Hx Reported Smoking Status: Never smoker Past Alcohol Use History: None Reported Past Drug Use History: None Reported General Exam Limitations: altered mental status General appearance: alert, in no apparent distress Head exam: Present: atraumatic, normocephalic, normal inspection Eye exam: Present: normal appearance, PERRL, EOMI. Absent: scleral icterus, conjunctival injection, periorbital swelling ENT exam: Present: normal exam, mucous membranes moist Neck exam: Present: normal inspection. Absent: tenderness, meningismus, lymphadenopathy Respiratory exam: Present: normal lung sounds bilaterally. Absent: respiratory distress, wheezes, rales, rhonchi, stridor Cardiovascular Exam: Present: regular rate, normal rhythm, normal heart sounds. Absent: systolic murmur, diastolic murmur, rubs, gallop, clicks GI/Abdominal exam: Present: soft, normal bowel sounds. Absent: distended, tenderness, guarding, rebound, rigid Extremities exam: Present: normal inspection, full ROM, normal capillary refill. Absent: tenderness, pedal edema, joint swelling, calf tenderness Back exam: Present: normal inspection Neurological exam: Present: alert, oriented X3, CN II-XII intact Psychiatric exam: Present: normal affect, normal mood Skin exam: Present: warm, dry, intact, normal color. Absent: rash Course Vital Signs 01/27/19 01/27/19 17:30 19:40 Temperature 98.7 F 98.7 F Pulse Rate 94 78 Respiratory 18 18 Rate Blood Pressure 118/81 110/78 O2 Sat by Pulse 93 L 94 L Oximetry - Reevaluation(s) Reevaluation #1: Medical records reviewed Patient's able to ambulate Medical Decision Making - Medical Decision Making 63 female the ER for evaluation presents with left knee pain hematoma from fall on blood thinners. Patient can be discharged home - Radiology Data Radiology results: report reviewed (X-ray left tibia and fibula negative for t raumatic injury), image reviewed Disposition Clinical Impression: Knee pain, Contusion of left knee, Hematoma Disposition: HOME SELF-CARE Condition: Good Instructions (If sedation given, give patient instructions): Knee Pain (ED), Hematoma (ED) Is patient prescribed a controlled substance at d/c from ED?: No Referrals: Justo Echeverria MD [Primary Care Provider] - 1-2 days
[2019-01-27 19:53] VITALS: BP 110/78; PULSE 78
== END 2019-01-27 19:40 | disposition home or self-care (01) ==
LOC: EC 17:02
DX: S80.02XA Contusion of left knee, initial encounter (principal); I48.91 Unspecified atrial fibrillation; Q87.40 Marfan syndrome, unspecified; Z79.01 Long term (current) use of anticoagulants; Z79.899 Other long term (current) drug therapy; W19.XXXA Unspecified fall, initial encounter; Y92.89 Other specified places as the place of occurrence of the external cause
CPT/HCPCS: 99284

== ENCOUNTER → 2019-02-07 | Outpatient (CLI) | payer MEDICARE, OTHER ==
--- NOTE | 2019-02-07 15:54 | XR ---
EXAMINATION TYPE: XR ankle complete LT DATE OF EXAM: 02/07/2019 COMPARISON: NONE HISTORY: Pain FINDINGS: Three views of the ankle demonstrate the ankle mortise to be intact and symmetric. The joint spaces are preserved. The osseous structures are intact. There is diffuse osteopenia and marked soft tissu e swelling laterally IMPRESSION: 1. No definite acute fracture or dislocation, if symptoms persist follow-up study in 7 to 10 days wou ld be suggested. Diffuse soft tissue swelling laterally use osteopenia. Consider follow-up MRI to ass ess for soft tissue or ligamentous injury.
--- NOTE | 2019-02-07 15:56 | XR ---
EXAMINATION TYPE: XR foot complete LT DATE OF EXAM: 02/07/2019 COMPARISON: NONE HISTORY: Pain TECHNIQUE: Three views are submitted. FINDINGS: There is severe diffuse osteopenia and there is dislocation of the middle phalanx of the fifth digit relative to the proximal phalanx. Arthropathy of the first MTP joint noted. IMPRESSION: 1. There is dislocation of the middle phalanx fifth digit relative to the proximal phalanx.
== END | disposition home or self-care (01) ==
LOC: RADXRMAIN 14:47
PROVIDERS: ATTEND Nurse Practitioner Family
DX: M79.89 Other specified soft tissue disorders (principal); M85.872 Other specified disorders of bone density and structure, left ankle and foot

== ENCOUNTER 2019-07-15 19:35 | Inpatient (IN) | payer MEDICARE, OTHER ==
[2019-07-15] MEDS ORDERED: SODIUM CHLORIDE 0.9% 1,000 ML IV STA (20:10)
--- NOTE | 2019-07-15 20:11 | ED ---
Weakness HPI - General Chief complaint: Fall Stated complaint: Fall Time Seen by Provider: 07/15/19 19:52 Source: patient, family, EMS, RN notes reviewed, old records reviewed Mode of arrival: EMS Limitations: altered mental status, physical limitation - History of Present Illness Initial comments: This is a 63-year-old female here with increasing weakness multiple recent falls and decreased activity level at home per patient's at-home caregiver. She has had a long medical history significant for Marfan's disease we will no surgery considered aneurysm in her abdomen. Patient herself denying any current complaints she was complaining of some ankle pain earlier secondary to a twisting of the left ankle in one of these falls. Patient denying any fevers. Family states patient is not given any complaints. She has no travel history MD Complaint: generalized weakness, lack of energy, difficulty walking -: days(s) Location: generalized Severity: moderate Severity scale (1-10): 6 Consistency: constant Improves with: none Worsens with: none Context: trauma/injury, history of similar Associated Symptoms: loss of appetite - Related Data Home Medications Medication Instructions Recorded Confirmed Calcium Carbonate/Vitamin D3 1 cap PO BID 10/17/18 01/27/19 [Calcium 600-Vit D3 500 Softgel] Docusate [Colace] 100 mg PO DAILY PRN 10/17/18 01/27/19 Escitalopram [Lexapro] 15 mg PO DAILY 10/17/18 01/27/19 Esomeprazole Magnesium [NexIUM] 40 mg PO DAILY 10/17/18 01/27/19 Ferrous Sulfate [Feosol] 325 mg PO DAILY 10/17/18 01/27/19 Furosemide [Lasix] 40 mg PO DAILY 10/17/18 01/27/19 Potassium Chloride ER [K-Dur 20] 20 meq PO DAILY 10/17/18 01/27/19 Spironolactone [Aldactone] 25 mg PO BID 10/17/18 01/27/19 Apixaban [Eliquis] 2.5 mg PO BID 01/10/19 01/27/19 Certavite 1 tab PO DAILY 01/10/19 01/27/19 Ketoconazole [Ketoconazole 2%] 1 applic TOPICAL BID 01/10/19 01/27/19 Losartan [Cozaar] 25 mg PO DAILY 01/10/19 01/27/19 Allergies Allergy/AdvReac Type Severity Reaction Status Date / Time No Known Allergies Allergy Verified 01/27/19 19:49 Review of Systems ROS Statement: Those systems with pertinent positive or pertinent negative responses have been documented in the HPI. ROS Other: All systems not noted in ROS Statement are negative. Past Medical History Past Medical History: Atrial Fibrillation Additional Past Medical History / Comment(s): Marfans syndrome, intellectual disability, AAA and aneurism behing left knee History of Any Multi-Drug Resistant Organisms: None Reported Additional Past Surgical History / Comment(s): hip and bilateral knees Past Psychological History: No Psychological Hx Reported Smoking Status: Never smoker Past Alcohol Use History: None Reported Past Drug Use History: None Reported General Exam Limitations: altered mental status, physical limitation General appearance: alert, in no apparent distress Head exam: Present: atraumatic, normocephalic, normal inspection Eye exam: Present: normal appearance, PERRL, EOMI. Absent: scleral icterus, conjunctival injection, periorbital swelling ENT exam: Present: normal exam, mucous membranes moist Neck exam: Present: normal inspection. Absent: tenderness, meningismus, lymphadenopathy Respiratory exam: Present: normal lung sounds bilaterally. Absent: respiratory distress, wheezes, rales, rhonchi, stridor Cardiovascular Exam: Present: normal rhythm, tachycardia, normal heart sounds. Absent: systolic murmur, diastolic murmur, rubs, gallop, clicks GI/Abdominal exam: Present: soft, normal bowel sounds. Absent: distended, tenderness, guarding, rebound, rigid Extremities exam: Present: normal inspection, full ROM, normal capillary refill. Absent: tenderness, pedal edema, joint swelling, calf tenderness Back exam: Present: normal inspection Neurological exam: Present: alert, oriented X3, CN II-XII intact Psychiatric exam: Present: normal affect, normal mood Skin exam: Present: warm, dry, intact, normal color. Absent: rash Course Vital Signs 07/15/19 07/15/19 07/15/19 19:51 20:30 21:30 Temperature 98.3 F Pulse Rate 103 H 103 H 105 H Respiratory 18 16 Rate Blood Pressure 142/108 142/110 138/109 O2 Sat by Pulse 92 L 92 L 93 L Oximetry 07/15/19 22:30 Temperature Pulse Rate 105 H Respiratory 16 Rate Blood Pressure 143/109 O2 Sat by Pulse 92 L Oximetry - Reevaluation(s) Reevaluation #1: 07/15/19 23:09 Medical record is reviewed Reevaluation #2: 07/15/19 23:09 Throughout ER stay patient remains moderately symptoms a symptomatic patient's family states is how she always is Reevaluation #3: 07/15/19 23:10 Family informed of findings patient's questions are answered - Consultations Consultation #1: spoke w Dr Romero who is agreeable for admission EKG Findings - EKG Comments: EKG Findings:: EKG shows A. fib with RVR 108, QRS 110, QTc 466 Medical Decision Making - Medical Decision Making 63 female here with weakness multiple sources of infection urine and pneumonia. Patient will be admitted for breathing treatments as needed IV antibiotics to cover both and monitoring of heart enzymes - Lab Data Result diagrams: 07/15/19 20:47 07/15/19 20:47 Lab Results 07/15/19 07/15/19 07/15/19 Range/Units 20:47 20:47 20:47 WBC 12.5 H (3.8-10.6) k/uL RBC 3.83 (3.80-5.40) m/uL Hgb 12.6 (11.4-16.0) gm/dL Hct 37.1 (34.0-46.0) % MCV 96.9 (80.0-100.0) fL MCH 33.0 (25.0-35.0) pg MCHC 34.1 (31.0-37.0) g/dL RDW 14.0 (11.5-15.5) % Plt Count 183 (150-450) k/uL Neutrophils % 86 % Lymphocytes % 5 % Monocytes % 6 % Eosinophils % 0 % Basophils % 0 % Neutrophils # 10.8 H (1.3-7.7) k/uL Lymphocytes # 0.7 L (1.0-4.8) k/uL Monocytes # 0.8 (0-1.0) k/uL Eosinophils # 0.0 (0-0.7) k/uL Basophils # 0.0 (0-0.2) k/uL Sodium 139 (137-145) mmol/L Potassium 4.2 (3.5-5.1) mmol/L Chloride 105 (98-107) mmol/L Carbon Dioxide 24 (22-30) mmol/L Anion Gap 10 mmol/L BUN 49 H (7-17) mg/dL Creatinine 0.90 (0.52-1.04) mg/dL Est GFR (CKD-EPI)AfAm 78 (>60 ml/min/1.73 sqM) Est GFR (CKD-EPI)NonAf 68 (>60 ml/min/1.73 sqM) Glucose 131 H (74-99) mg/dL Plasma Lactic Acid Derek 0.9 (0.7-2.0) mmol/L Calcium 10.2 (8.4-10.2) mg/dL Phosphorus 3.0 (2.5-4.5) mg/dL Magnesium 2.0 (1.6-2.3) mg/dL Total Bilirubin 1.2 (0.2-1.3) mg/dL AST 53 H (14-36) U/L ALT 106 H (4-34) U/L Alkaline Phosphatase 65 (38-126) U/L Ammonia 10 (<30) umol/L Creatine Kinase 28 L (30-135) U/L Troponin I (0.000-0.034) ng/mL NT-Pro-B Natriuret Pep pg/mL Total Protein 6.6 (6.3-8.2) g/dL Albumin 3.5 (3.5-5.0) g/dL TSH 2.030 (0.465-4.680) mIU/L Urine Color Urine Appearance (Clear) Urine pH (5.0-8.0) Ur Specific [place] (1.001-1.035) Urine Protein (Negative) Urine Glucose (UA) (Negative) Urine Ketones (Negative) Urine Blood (Negative) Urine Nitrite (Negative) Urine Bilirubin (Negative) Urine Urobilinogen (<2.0) mg/dL Ur Leukocyte Esterase (Negative) Urine RBC (0-5) /hpf Urine WBC (0-5) /hpf Urine WBC Clumps (None) /hpf Ur Squamous Epith Cells (0-4) /hpf Urine Bacteria (None) /hpf Granular Casts (0) /lpf Urine Mucus (None) /hpf Influenza Type A RNA (Not Detectd) Influenza Type B (PCR) (Not Detectd) 07/15/19 07/15/19 07/15/19 Range/Units 20:47 20:47 21:48 WBC (3.8-10.6) k/uL RBC (3.80-5.40) m/uL Hgb (11.4-16.0) gm/dL Hct (34.0-46.0) % MCV (80.0-100.0) fL MCH (25.0-35.0) pg MCHC (31.0-37.0) g/dL RDW (11.5-15.5) % Plt Count (150-450) k/uL Neutrophils % % Lymphocytes % % Monocytes % % Eosinophils % % Basophils % % Neutrophils # (1.3-7.7) k/uL Lymphocytes # (1.0-4.8) k/uL Monocytes # (0-1.0) k/uL Eosinophils # (0-0.7) k/uL Basophils # (0-0.2) k/uL Sodium (137-145) mmol/L Potassium (3.5-5.1) mmol/L Chloride (98-107) mmol/L Carbon Dioxide (22-30) mmol/L Anion Gap mmol/L BUN (7-17) mg/dL Creatinine (0.52-1.04) mg/dL Est GFR (CKD-EPI)AfAm (>60 ml/min/1.73 sqM) Est GFR (CKD-EPI)NonAf (>60 ml/min/1.73 sqM) Glucose (74-99) mg/dL Plasma Lactic Acid Derek (0.7-2.0) mmol/L Calcium (8.4-10.2) mg/dL Phosphorus (2.5-4.5) mg/dL Magnesium (1.6-2.3) mg/dL Total Bilirubin (0.2-1.3) mg/dL AST (14-36) U/L ALT (4-34) U/L Alkaline Phosphatase (38-126) U/L Ammonia (<30) umol/L Creatine Kinase (30-135) U/L Troponin I 0.037 H* (0.000-0.034) ng/mL NT-Pro-B Natriuret Pep 35090 pg/mL Total Protein (6.3-8.2) g/dL Albumin (3.5-5.0) g/dL TSH (0.465-4.680) mIU/L Urine Color Urine Appearance (Clear) Urine pH (5.0-8.0) Ur Specific [place] (1.001-1.035) Urine Protein (Negative) Urine Glucose (UA) (Negative) Urine Ketones (Negative) Urine Blood (Negative) Urine Nitrite (Negative) Urine Bilirubin (Negative) Urine Urobilinogen (<2.0) mg/dL Ur Leukocyte Esterase (Negative) Urine RBC (0-5) /hpf Urine WBC (0-5) /hpf Urine WBC Clumps (None) /hpf Ur Squamous Epith Cells (0-4) /hpf Urine Bacteria (None) /hpf Granular Casts (0) /lpf Urine Mucus (None) /hpf Influenza Type A RNA Not Detected (Not Detectd) Influenza Type B (PCR) Not Detected (Not Detectd) 07/15/19 Range/Units 21:48 WBC (3.8-10.6) k/uL RBC (3.80-5.40) m/uL Hgb (11.4-16.0) gm/dL Hct (34.0-46.0) % MCV (80.0-100.0) fL MCH (25.0-35.0) pg MCHC (31.0-37.0) g/dL RDW (11.5-15.5) % Plt Count (150-450) k/uL Neutrophils % % Lymphocytes % % Monocytes % % Eosinophils % % Basophils % % Neutrophils # (1.3-7.7) k/uL Lymphocytes # (1.0-4.8) k/uL Monocytes # (0-1.0) k/uL Eosinophils # (0-0.7) k/uL Basophils # (0-0.2) k/uL Sodium (137-145) mmol/L Potassium (3.5-5.1) mmol/L Chloride (98-107) mmol/L Carbon Dioxide (22-30) mmol/L Anion Gap mmol/L BUN (7-17) mg/dL Creatinine (0.52-1.04) mg/dL Est GFR (CKD-EPI)AfAm (>60 ml/min/1.73 sqM) Est GFR (CKD-EPI)NonAf (>60 ml/min/1.73 sqM) Glucose (74-99) mg/dL Plasma Lactic Acid Derek (0.7-2.0) mmol/L Calcium (8.4-10.2) mg/dL Phosphorus (2.5-4.5) mg/dL Magnesium (1.6-2.3) mg/dL Total Bilirubin (0.2-1.3) mg/dL AST (14-36) U/L ALT (4-34) U/L Alkaline Phosphatase (38-126) U/L Ammonia (<30) umol/L Creatine Kinase (30-135) U/L Troponin I (0.000-0.034) ng/mL NT-Pro-B Natriuret Pep pg/mL Total Protein (6.3-8.2) g/dL Albumin (3.5-5.0) g/dL TSH (0.465-4.680) mIU/L Urine Color Yellow Urine Appearance Cloudy H (Clear) Urine pH 6.0 (5.0-8.0) Ur Specific [place] 1.024 (1.001-1.035) Urine Protein 2+ H (Negative) Urine Glucose (UA) Negative (Negative) Urine Ketones Negative (Negative) Urine Blood Trace H (Negative) Urine Nitrite Negative (Negative) Urine Bilirubin Negative (Negative) Urine Urobilinogen 2.0 (<2.0) mg/dL Ur Leukocyte Esterase Trace H (Negative) Urine RBC 2 (0-5) /hpf Urine WBC 9 H (0-5) /hpf Urine WBC Clumps Few H (None) /hpf Ur Squamous Epith Cells <1 (0-4) /hpf Urine Bacteria Many H (None) /hpf Granular Casts 180 (0) /lpf Urine Mucus Many H (None) /hpf Influenza Type A RNA (Not Detectd) Influenza Type B (PCR) (Not Detectd) - Radiology Data Radiology results: report reviewed (Chest x-ray significant for pneumonia also possible CHF), image reviewed Critical Care Time Critical Care Time: Yes Total Critical Care Time: 31 Disposition Clinical Impression: Fall, Weakness, Pneumonia, Fracture of left ankle, lateral malleolus Disposition: ADMITTED IP TO THIS [facility] Condition: Fair Is patient prescribed a controlled substance at d/c from ED?: No Referrals: None,Stated [REFERRING] - 1-2 days
[2019-07-15 21:06] LABS: Basophils % (A) 0 %; Eosinophils % (A) 0 %; HCT 37.1 % (34.0-46.0); HGB 12.6 gm/dL (11.4-16.0); Lymphocytes # (A) 0.7 k/uL (1.0-4.8); Lymphocytes % (A) 5 %; MCHC 34.1 g/dL (31.0-37.0); MCV 96.9 fL (80.0-100.0); Mean Platelet Volume 9.1; Monocytes # (A) 0.8 k/uL (0-1.0); Monocytes % (A) 6 %; Neutrophils # (A) 10.8 k/uL (1.3-7.7); Neutrophils % (A) 86 %; Platelet Count 183 k/uL (150-450); RBC 3.83 m/uL (3.80-5.40); WBC 12.5 k/uL (3.8-10.6)
--- NOTE | 2019-07-15 21:07 | XR ---
EXAMINATION TYPE: XR ankle complete LT DATE OF EXAM: 07/15/2019 COMPARISON: 02/07/2019 HISTORY: Fall, pain TECHNIQUE: Three-view left ankle FINDINGS: Soft tissue swelling is over the lateral malleolus. The ankle mortise appears intact. Very subtle fracture at the distal fibula appears to be present. This appears be best visualized in t he oblique view. No additional fractures are evident. IMPRESSION: 1. Subtle nondisplaced fracture inferior lateral malleolus with prominent overlying soft tissue swel ling.
--- NOTE | 2019-07-15 21:08 | XR ---
EXAMINATION TYPE: XR chest 2V DATE OF EXAM: 07/15/2019 COMPARISON: 01/10/2019 INDICATION: Weakness, fall TECHNIQUE: Frontal and lateral views of the chest are obtained. FINDINGS: The heart size is moderately prominent. The pulmonary vasculature is normal. Right lower lobe infiltrate is present.. Mild right upper lobe lobe infiltrate may be present IMPRESSION: 1. Cardiomegaly. 2. Right upper and lower lobe infiltrates. Correlate for atelectasis and pneumonia. Atypical pulmonar y edema could be considered.
--- NOTE | 2019-07-15 21:09 | XR ---
EXAMINATION TYPE: XR pelvis AP view DATE OF EXAM: 07/15/2019 COMPARISON: None HISTORY: Fall, pain TECHNIQUE: AP pelvis FINDINGS: Bilateral femoral prostheses are present. Multiple screws are within the superior acetabulu m. Sacroiliac joints have degenerative change. Symphysis pubis is normal. No acute fractures are evident. Normal wall gas is present. IMPRESSION: 1. No acute posttraumatic changes are evident. 2. Old right lateral hip prostheses and pelvis repair are evident
[2019-07-15 21:17] LABS: Albumin 3.5 g/dL (3.5-5.0); Calcium 10.2 mg/dL (8.4-10.2); Potassium 4.2 mmol/L (3.5-5.1); Total Bilirubin 1.2 mg/dL (0.2-1.3); Total Protein 6.6 g/dL (6.3-8.2)
[2019-07-15 21:33] LABS: Lactic Acid, Venous 0.9 mmol/L (0.7-2.0)
--- NOTE | 2019-07-15 21:48 | CT ---
EXAMINATION TYPE: CT brain svitlanaine wo con DATE OF EXAM: 07/15/2019 COMPARISON: 01/10/2019 HISTORY: Fall. CT DLP: 1304.5 mGycm, Automated exposure control for dose reduction was used. CONTRAST: None CT of the brain is performed utilizing 3 mm thick sections through the posterior fossa and 3 mm thick sections through the remaining calvarium. Study is performed within 24 hours of arrival to the hospital. No abnormal hyperdensity is present to suggest an acute intracranial hemorrhage. No mass lesion is evident. There is some prominence of the extra-axial space adjacent to the right pa rietal lobe. This could be related to an arachnoid cyst. Atrophy is considered less likely. No acute infarcts are evident. There is some periventricular white matter hypodensity, likely on the basis of chronic white matter ischemic changes. Small old lacunar infarct in the anterior right basa l ganglion is present. Ventricles and sulci are appropriate for the patient age. Hyperostosis frontalis internus may be pre sent. Paranasal sinuses and mastoid air cells within the [id number] are clear. IMPRESSIONS: 1. Normal CT brain. CT cervical spine. COMPARISON: None CT of the cervical spine is performed in the axial plane at 2 mm thick sections. Reconstructed image s in the coronal, and sagittal plane are reviewed on the computer. No acute fractures are evident. There is a grade 1 anterolisthesis of C4 anteriorly on C5. There is loss of disc height to the C5-6 level. Narrowing C6-7 level is present Vertebral body heights are preserved. No spinal canal stenosis is evident. Uncovertebral joint hypertrophy at C7-T1, C6-7, C5-C6 is contributing to foraminal narrowing. IMPRESSIONS: 1. No acute osseous abnormality cervical spine. 2. Degenerative disc changes C5-6 C6-7. 3. Grade 1 anterolisthesis of C4 anteriorly on C5
[2019-07-15 22:34] LABS: Appearance,Urine Cloudy (Clear); Bacteria,Urine Many /hpf; Bilirubin,Urine Negative (Negative); Blood,Urine Trace (Negative); Color,Urine Yellow; Glucose,Urine (UA) Negative (Negative); Granular Casts,Urine 180 /lpf (0); Ketones,Urine Negative (Negative); Leukocyte Esterase,Urine Trace (Negative); Mucus,Urine Many /hpf; Nitrite,Urine Negative (Negative); Protein,Urine 2+ (Negative); RBC,Urine 2 /hpf (0-5); Specific Gravity,Urine 1.024 (1.001-1.035); Squamous Epithelial Cell,Urine <1 /hpf (0-4); WBC,Urine 9 /hpf (0-5)
[2019-07-15] MEDS ORDERED: ASPIRIN 81 MG PO STA (23:04)
[2019-07-15] MEDS ORDERED: NITROGLYCERIN SL TABS 0.4 MG TAB SUBLINGUAL PRN (23:04)
[2019-07-15] MEDS ORDERED: ALBUTEROL NEBULIZED 2.5 MG/3 ML INHALATION PRN (23:04)
[2019-07-15] MEDS ORDERED: AZITHROMYCIN 500 MG in SODIUM CHLORIDE 0.9% 250 ML IVPB STA (23:04)
[2019-07-15] MEDS ORDERED: PNEUMONIA PROTOCOL UTILIZED 1 EACH MISC PO PRN (23:04)
[2019-07-16] MEDS: SODIUM CHLORIDE 0.9% 1,000 ML IV SCH ×3 (00:21→21:20)
[2019-07-16 02:55] LABS: Cholesterol 124 mg/dL (<200); HDL Cholesterol 31 mg/dL (40-60); LDL Cholesterol,Calculated 79 mg/dL (0-99); Triglycerides 69 mg/dL (<150)
--- NOTE | 2019-07-16 03:19 | P.HPIM ---
History of Present Illness H&P Date: 07/15/19 Chief Complaint: Decreased activity home 63-year-old female with history of Marfan syndrome Patient has developmental delay cannot provide any meaningful history at this time family has left at the time of my interview. History was obtained by reviewing medical records and discussing the case with the ER Patient currently denies any symptoms or complaints when asked. However when she was brought into the ER family indicated that her activity around the house has decreased and she didn't seem to be her normal self and they were also reporting some increase generalized weakness and frequent falls at home over the past few days. No other specific concerns were mentioned there is no report of any fevers chills coughing chest pain trouble breathing or any urinary symptoms. When patient asked again and she just denies any complaints or symptoms. In the ED she was found to have left ankle lateral malleolus fracture and swelling nondisplaced. When patient asked she will report some discomfort in her left ankle. Chest x-ray suggested some infiltrates on the right lung again patient denies any respiratory symptoms however she is unreliable. Urine was positive patient had leukocytosis and slightly elevated troponins. Influenza testing was negative CT of the head was negative however showed grade 1 anterolisthesis of C4 on C5. EKG showed atrial fibrillation, some ST changes with ST depression that existed on prior EKGs however more prominent in lead II and III this time compared to before Patient was admitted for close monitoring cardiology evaluation and IV antibiotics. Review of Systems Patient unable to provide any meaningful review of systems she answers with known to any question. Patient has developmental delay Past Medical History Past Medical History: Atrial Fibrillation Additional Past Medical History / Comment(s): Marfans syndrome, intellectual disability, AAA and aneurism behing left knee History of Any Multi-Drug Resistant Organisms: None Reported Additional Past Surgical History / Comment(s): hip and bilateral knees Past Psychological History: No Psychological Hx Reported Smoking Status: Never smoker Past Alcohol Use History: None Reported Past Drug Use History: None Reported - Past Family History Family Family Medical History: Unable to Obtain Medications and Allergies Home Medications Medication Instructions Recorded Confirmed Type Calcium Carbonate/Vitamin D3 1 cap PO BID 10/17/18 07/15/19 History [Calcium 600-Vit D3 500 Softgel] Escitalopram [Lexapro] 15 mg PO DAILY 10/17/18 07/15/19 History Esomeprazole Magnesium [NexIUM] 40 mg PO DAILY 10/17/18 07/15/19 History Ferrous Sulfate [Feosol] 325 mg PO DAILY 10/17/18 07/15/19 History Furosemide [Lasix] 40 mg PO DAILY 10/17/18 07/15/19 History Potassium Chloride ER [K-Dur 20] 20 meq PO DAILY 10/17/18 07/15/19 History Spironolactone [Aldactone] 25 mg PO BID 10/17/18 07/15/19 History Apixaban [Eliquis] 2.5 mg PO BID 01/10/19 07/15/19 History Ketoconazole [Ketoconazole 2%] 1 applic TOPICAL DAILY 01/10/19 07/15/19 History Losartan [Cozaar] 25 mg PO DAILY 01/10/19 07/15/19 History Multivitamins, Thera [Multivitamin 1 tab PO DAILY 07/15/19 07/15/19 History (formulary)] Wheat Dextrin [Benefiber] 2 tsp PO BID 07/15/19 07/15/19 History Allergies Allergy/AdvReac Type Severity Reaction Status Date / Time No Known Allergies Allergy Verified 07/15/19 23:41 Physical Exam Vitals: Vital Signs Temp Pulse Resp BP Pulse Ox 07/15/19 22:30 105 H 16 143/109 92 L 07/15/19 21:30 105 H 16 138/109 93 L 07/15/19 20:30 103 H 142/110 92 L 07/15/19 19:51 98.3 F 103 H 18 142/108 92 L Intake and Output 07/15/19 07/15/19 07/16/19 14:59 22:59 06:59 Other: Weight 77.111 kg Constitutional: No acute distress, conversant, pleasant, cooperative Eyes: Anicteric sclerae, moist conjunctiva, no lid-lag Pupils equal round reactive to light ENMT: NC/AT Oropharynx clear, no erythema, or exudates Neck: Supple, FROM, no masses, or JVD No carotid bruits No thyromegaly Lungs: Clear to auscultation Clear to percussion Normal respiratory effort, no accessory muscle use Cardiovascular: Heart irregular No murmurs, gallops, or rubs No peripheral edema Abdominal: Soft Nontender, no guarding, rebound or rigidity Abdomen moving with respiration Normoactive bowel sounds No hepatomegaly, No splenomegaly No palpable mass No abdominal wall hernia noted Skin: Normal temperature, tone, texture, turgor No induration No subcutaneous nodules No rash, lesions No ulcers Extremities: Soft tissue swelling over the left lateral ankle with tenderness to palpation. No cuts or open wounds No digital cyanosis No clubbing Pedal pulses intact and symmetrical Radial pulses intact and symmetrical No calf tenderness Psychiatric: Alert and oriented to person, place and time Appropriate affect Poor judgement Neuro Muscles Strength 4/5 in all 4 extremities Sensation to light touch grossly present throughout Cranial nerves II-XII grossly intact No focal sensory deficits Lymphatics: no palpable cervical or supraclavicular , or inguinal lymph nodes Results CBC & Chem 7: 07/15/19 20:47 07/15/19 20:47 Labs: Abnormal Lab Results - Last 24 Hours (Table) 07/15/19 07/15/19 07/15/19 Range/Units 20:47 20:47 20:47 WBC 12.5 H (3.8-10.6) k/uL Neutrophils # 10.8 H (1.3-7.7) k/uL Lymphocytes # 0.7 L (1.0-4.8) k/uL BUN 49 H (7-17) mg/dL Glucose 131 H (74-99) mg/dL AST 53 H (14-36) U/L ALT 106 H (4-34) U/L Creatine Kinase 28 L (30-135) U/L Troponin I 0.037 H* (0.000-0.034) ng/mL Urine Appearance (Clear) Urine Protein (Negative) Urine Blood (Negative) Ur Leukocyte Esterase (Negative) Urine WBC (0-5) /hpf Urine WBC Clumps (None) /hpf Urine Bacteria (None) /hpf Urine Mucus (None) /hpf 07/15/19 Range/Units 21:48 WBC (3.8-10.6) k/uL Neutrophils # (1.3-7.7) k/uL Lymphocytes # (1.0-4.8) k/uL BUN (7-17) mg/dL Glucose (74-99) mg/dL AST (14-36) U/L ALT (4-34) U/L Creatine Kinase (30-135) U/L Troponin I (0.000-0.034) ng/mL Urine Appearance Cloudy H (Clear) Urine Protein 2+ H (Negative) Urine Blood Trace H (Negative) Ur Leukocyte Esterase Trace H (Negative) Urine WBC 9 H (0-5) /hpf Urine WBC Clumps Few H (None) /hpf Urine Bacteria Many H (None) /hpf Urine Mucus Many H (None) /hpf Assessment and Plan Assessment: 63-year-old female with history of Marfan syndrome was brought in today due to changes in her daily behavior with decreased activity generalized weakness and frequent falls was found to have leukocytosis and positive urine and infiltrates in the lungs patient is a poor historian patient was also found to have elevated troponins and some subtle EKG changes compared to prior EKGs. Patient admitted for IV antibiotics and cardiology evaluation with anticipated length of stay less than a 2 midnights Plan: Sepsis secondary to Acute urinary tract infection Possible community-acquired pneumonia Elevated troponins rule out ACS with subtle EKG changes Chronic A. fib on Eliquis Fracture lateral malleolus left ankle Marfan syndrome History of learning disability Plan Follow-up cultures Patient started on empiric antibiotics IV fluid hydration Continue home meds Cardiology consult Cardiac monitoring Trend cardiac enzymes Continue Eliquis for A. fib Pain control PT/OT eval Fall precautions CODE STATUS: Full code DVT prophylaxis: On Eliquis for A. fib Discussed with: Patient, ER, RN Anticipated length of stay less than [address]: Home A total of 60 minutes was spent on the care of this complex patient more than 50% of the time was spent in counseling and care coordination.
--- NOTE | 2019-07-16 08:29 | XR ---
EXAMINATION TYPE: XR chest 2V DATE OF EXAM: 07/16/2019 COMPARISON: 07/15/2019 HISTORY: 63-year-old female follow-up pneumonia TECHNIQUE: AP and lateral views FINDINGS: Heart is moderately enlarged. Mild diffuse interstitial densities persist. Focal airspace disease at the right base also persists. There may be minimally improved aeration. No pleural effusion. IMPRESSION: 1. Continued moderate cardiomegaly. 2. Stable interstitial changes. 3. Continued right basilar pneumonia with minimally improved aeration.
[2019-07-16] MEDS ORDERED: ENOXAPARIN 40 MG/0.4 ML SYRINGE SQ SCH (09:00)
[2019-07-16] MEDS: IPRATROPIUM-ALBUTEROL 3 ML NEB INHALATION SCH ×4 (09:28→20:47)
[2019-07-16 09:37] LABS: Basophils % (A) 0 %; Calcium 9.8 mg/dL (8.4-10.2); Eosinophils % (A) 0 %; HCT 37.2 % (34.0-46.0); HGB 12.1 gm/dL (11.4-16.0); Lymphocytes # (A) 0.6 k/uL (1.0-4.8); Lymphocytes % (A) 7 %; MCH 31.8 pg (25.0-35.0); MCHC 32.4 g/dL (31.0-37.0); MCV 98.1 fL (80.0-100.0); Mean Platelet Volume 8.9; Monocytes # (A) 0.6 k/uL (0-1.0); Monocytes % (A) 6 %; Neutrophils # (A) 7.9 k/uL (1.3-7.7); Neutrophils % (A) 85 %; Platelet Count 162 k/uL (150-450); Potassium 4.4 mmol/L (3.5-5.1); RBC 3.79 m/uL (3.80-5.40); RDW 13.8 % (11.5-15.5); WBC 9.3 k/uL (3.8-10.6)
[2019-07-16] MEDS: ASPIRIN 325 MG TAB PO SCH (09:42)
[2019-07-16] MEDS: SPIRONOLACTONE 25 MG TAB PO SCH ×2 (09:42→21:14)
[2019-07-16] MEDS: LOSARTAN 25 MG TAB PO SCH (09:42)
[2019-07-16] MEDS: FERROUS SULFATE 325 MG TAB PO SCH (09:42)
[2019-07-16] MEDS: ESCITALOPRAM 10 MG TAB PO SCH (09:42)
[2019-07-16] MEDS: PANTOPRAZOLE 40 MG TABLET PO SCH (09:42)
[2019-07-16] MEDS: METOPROLOL TARTRATE 50 MG TAB PO SCH ×2 (09:42→21:13)
[2019-07-16] MEDS: APIXABAN 2.5 MG TABLET PO SCH ×2 (09:42→21:13)
--- NOTE | 2019-07-16 13:50 | ECHOF ---
Referral Reason:elevTrop MEASUREMENTS -------- HEIGHT: 177.8 cm WEIGHT: 77.1 kg BP: RVIDd: 3.0 cm (< 3.3) IVSd: 1.6 cm (0.6 - 1.1) LVIDd: 4.2 cm (3.9 - 5.3) LVPWd: 1.7 cm (0.6 - 1.1) IVSs: 2.3 cm LVIDs: 3.7 cm LVPWs: 2.0 cm LAESV Index (A-L): 120.81 ml/m Ao Diam: 3.8 cm (2.0 - 3.7) AV Cusp: 2.1 cm (1.5 - 2.6) LA Diam: 5.8 cm (2.7 - 3.8) MV EXCURSION: 24.599 mm (> 18.000) MV EF SLOPE: 196 mm/s (70 - 150) EPSS: 0.4 cm MV E Albert: 1.76 m/s MV DecT: 104 ms MV A Albert: 0.71 m/s MV E/A Ratio: 2.46 AR PHT: 224 ms RAP: 15.00 mmHg RVSP: 50.38 mmHg FINDINGS -------- Undetermined rhythm. This was a technically adequate study. The left ventricular size is normal. There is moderate concentric left ventricular hypertrophy. O verall left ventricular systolic function is mildly impaired with, an EF between 45 - 50 %. Increas ed LAP. Grade 2 Diastolic Dysfuntion. The right ventricle is normal in size. The left atrium is markedly dilated. LA is severely dilated >40 ml/m2 The right atrial size is normal. Interatrial and interventricular septum intact. Aortic valve is trileaflet and is mildly thickened. There is mild aortic regurgitation. The mitral valve is normal. The mitral valve leaflets are mildly thickened. Severe mitral regurgi tation is present. The tricuspid valve appears structurally normal. Mild tricuspid regurgitation present. There is m oderate pulmonary hypertension. The right ventricular systolic pressure, as measured by Doppler, is 50.38mmHg. There is no pulmonic regurgitation present. 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 There is no pericardial effusion. CONCLUSIONS -------- 1. Undetermined rhythm. 2. This was a technically adequate study. 3. The left ventricular size is normal. 4. There is moderate concentric left ventricular hypertrophy. 5. Overall left ventricular systolic function is mildly impaired with, an EF between 45 - 50 %. 6. Increased LAP. Grade 2 Diastolic Dysfuntion. 7. The right ventricle is normal in size. 8. The left atrium is markedly dilated. 9. LA is severely dilated >40 ml/m2 10. The right atrial size is normal. 11. Interatrial and interventricular septum intact. 12. Aortic valve is trileaflet and is mildly thickened. 13. There is mild aortic regurgitation. 14. The mitral valve is normal. 15. The mitral valve leaflets are mildly thickened. 16. Severe mitral regurgitation is present. 17. The tricuspid valve appears structurally normal. 18. Mild tricuspid regurgitation present. 19. There is moderate pulmonary hypertension. 20. The right ventricular systolic pressure, as measured by Doppler, is 50.38mmHg. 21. There is no pulmonic regurgitation present. 22. 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 The inferior vena cava is mildly dilated. 24. There is no pericardial effusion. PATROL OFFICER: Zeynep Grover RDCS
[2019-07-16] MEDS ORDERED: HYDROcodone/APAP 5-325MG 1 EACH TAB PO PRN (14:03)
[2019-07-16] MEDS ORDERED: NALOXONE 0.4 MG/ML 1 ML VIAL IV PRN (14:03)
--- NOTE | 2019-07-16 14:16 | P.PN ---
Subjective Progress Note Date: 07/16/19 Principal diagnosis: Pneumonia, fall Patient was seen and examined. No acute events overnight. Patient reports left ankle pain. Patient states that she was attempting to get into a car when she lost her footing and fell. She denies any loss of consciousness. She denies any chest pain, shortness of breath or palpitations. No nausea or vomiting. No fever or chills. She denies any dysuria. She does complain of some nonspecific cough but is unable to elaborate any further. Objective - Vital Signs Vital signs: Vital Signs Temp 98.1 F 07/16/19 07:37 Pulse 89 07/16/19 12:39 Resp 17 07/16/19 12:00 BP 121/88 07/16/19 12:00 Pulse Ox 98 07/16/19 12:26 Intake & Output 07/15/19 07/16/19 07/16/19 18:59 06:59 18:59 Intake Total 240 Balance 240 Weight 77.111 kg Intake: Oral 240 Other: Voiding Method Bedpan - Exam General: [non toxic], [no distress], [appears at stated age] Derm: [warm], [dry] Head: [atraumatic], [normocephalic], [symmetric] Eyes: [EOMI], [no lid lag], [anicteric sclera] Mouth: [no lip lesion], [mucus membranes moist] Cardiovascular: [S1S2 reg], [irregularly regular], [positive DP pulse bilateral], Lungs: [CTA bilateral], [no rhonchi, no rales] , [no accessory muscle use] Abdominal: [soft], [ nontender to palpation], [no guarding], [no appreciable organomegaly] Ext: [no gross muscle atrophy], [no edema], [no contractures], [left ankle restricted range of motion due to pain] Neuro: [no focal neuro deficits] Psych: [Alert], [oriented], [appropriate affect] - Labs CBC & Chem 7: 07/16/19 08:17 07/16/19 08:17 Labs: Abnormal Lab Results - Last 24 Hours (Table) 07/15/19 07/15/19 07/15/19 Range/Units 20:47 20:47 20:47 WBC 12.5 H (3.8-10.6) k/uL RBC (3.80-5.40) m/uL Neutrophils # 10.8 H (1.3-7.7) k/uL Lymphocytes # 0.7 L (1.0-4.8) k/uL Chloride (98-107) mmol/L BUN 49 H (7-17) mg/dL Glucose 131 H (74-99) mg/dL AST 53 H (14-36) U/L ALT 106 H (4-34) U/L Creatine Kinase 28 L (30-135) U/L Troponin I 0.037 H* (0.000-0.034) ng/mL HDL Cholesterol (40-60) mg/dL Urine Appearance (Clear) Urine Protein (Negative) Urine Blood (Negative) Ur Leukocyte Esterase (Negative) Urine WBC (0-5) /hpf Urine WBC Clumps (None) /hpf Urine Bacteria (None) /hpf Urine Mucus (None) /hpf 07/15/19 07/16/19 07/16/19 Range/Units 21:48 02:30 08:17 WBC (3.8-10.6) k/uL RBC 3.79 L (3.80-5.40) m/uL Neutrophils # 7.9 H (1.3-7.7) k/uL Lymphocytes # 0.6 L (1.0-4.8) k/uL Chloride (98-107) mmol/L BUN (7-17) mg/dL Glucose (74-99) mg/dL AST (14-36) U/L ALT (4-34) U/L Creatine Kinase (30-135) U/L Troponin I (0.000-0.034) ng/mL HDL Cholesterol 31 L (40-60) mg/dL Urine Appearance Cloudy H (Clear) Urine Protein 2+ H (Negative) Urine Blood Trace H (Negative) Ur Leukocyte Esterase Trace H (Negative) Urine WBC 9 H (0-5) /hpf Urine WBC Clumps Few H (None) /hpf Urine Bacteria Many H (None) /hpf Urine Mucus Many H (None) /hpf 07/16/19 Range/Units 08:17 WBC (3.8-10.6) k/uL RBC (3.80-5.40) m/uL Neutrophils # (1.3-7.7) k/uL Lymphocytes # (1.0-4.8) k/uL Chloride 108 H (98-107) mmol/L BUN 42 H (7-17) mg/dL Glucose 110 H (74-99) mg/dL AST (14-36) U/L ALT (4-34) U/L Creatine Kinase (30-135) U/L Troponin I (0.000-0.034) ng/mL HDL Cholesterol (40-60) mg/dL Urine Appearance (Clear) Urine Protein (Negative) Urine Blood (Negative) Ur Leukocyte Esterase (Negative) Urine WBC (0-5) /hpf Urine WBC Clumps (None) /hpf Urine Bacteria (None) /hpf Urine Mucus (None) /hpf Microbiology - Last 24 Hours (Table) 07/15/19 21:54 Urine Culture - Preliminary Urine,Catheterized Assessment and Plan Assessment: Sepsis from community acquired pneumonia Urinary tract infection Elevated troponins rule out ACS Left lateral malleolus fracture Elevated BUN Transaminitis Chronic atrial fibrillation on Eliquis Marfan syndrome with history of learning disability Patient initially met sepsis criteria. Heart rate greater than 100. Le ukocytosis of 12.5 which is resolved. UA shows trace leukocyte esterase. Chest x-ray showing possible pneumonia. Lactic acid negative. Plans: Start Rocephin and azithromycin. Follow sputum culture. Follow urine culture. Follow blood culture. Tylenol as needed for fever. Normal saline at 100 mL per hour. UA shows trace leukocyte esterase. Plans: Continue Rocephin. Follow urine culture. Troponin 0.037, 0.034, 0.030 with EKG showing A. fib with RVR T-wave changes. Echocardiogram shows EF 45-50% with grade 2 diastolic dysfunction. Plans: ACS ruled out. Follow-up cardiology consultation. Telemetry monitoring. As seen on ankle x-ray. Plans: Follow orthopedic consult. Pain control Tylenol or [place]. Follow PT and OT recommendations. BUN 42. Likely dehydration. Plans: Continue IVF as above. Repeat CMP tomorrow morning. Avoid nephrotoxins. AST 53, ALT 106. Unknown significance. Plans: Repeat CMP tomorrow morning. Currently rate controlled. Plans: Continue metoprolol. Eliquis for anticoagulation. [Patient admitted after fall. Left lateral malleolus fracture. Orthopedic consulted. Found to have community-acquired pneumonia. On IV antibiotics. She is pending clinical improvement. Likely DC in 1-2 days.]
[2019-07-16] MEDS: ACETAMINOPHEN TAB 325 MG TAB PO PRN (14:41)
--- NOTE | 2019-07-16 18:27 | CONS ---
CONSULTATION CHIEF COMPLAINT: Weakness and tiredness. Rachel is a 63-year-old lady with history of permanent atrial fibrillation, hypertension, Marfan syndrome, abdominal aortic aneurysm with musculoskeletal disability who normally ambulates with a wheelchair; was brought to hospital because of weakness, inability to get up and falls. Patient fell off a commode 2 days ago but has done well. Subsequently, her [id number] took her to the movies where while she was in the restroom, she again felt weak and could not get up, was helped to her wheelchair and taken to the car where she was simply not able to get up from her wheelchair into the car. She fell down and had a fracture in her ankle. She did not have any chest pain. She was not short of breath. Did not have leg edema. There is no PND or orthopnea. She came to the ER where her initial white cell count was slightly elevated, creatinine was normal. The BUN is high suggestive of intravascular volume depletion. BNP was elevated of unclear etiology. Her troponin was 0.037 on her initial presentation. The subsequent 2 tests were within normal limits. EKG showed atrial fibrillation with nonspecific ST-T wave changes. The patient has known atrial fibrillation and takes Eliquis for the same. Her clinical presentation is not consistent with acute coronary syndrome nor is it consistent with congestive heart failure. It is unclear as to why she had this sudden onset of weakness and inability to get up. Consider neuro evaluation. PAST MEDICAL HISTORY: Significant for Marfan syndrome, permanent atrial fibrillation, abdominal aortic aneurysm and hypertension. MEDICATIONS: Medications at home include Aldactone 25 b.i.d., K-Dur 20 daily, Cozaar 25 daily, Lasix 40 daily, iron, Nexium, Lexapro, and Eliquis. ALLERGIES: There are no known drug allergies. FAMILY HISTORY: Negative for premature coronary artery disease. SOCIAL HISTORY: Negative for smoking, EtOH abuse or drug abuse. REVIEW OF SYSTEMS: HEENT: Unremarkable. CARDIAC: As described above. RESPIRATORY: Negative. GI: Negative. GENITOURINARY: Negative. ALLERGY/IMMUNOLOGY: Negative. MUSCULOSKELETAL: Significant for Marfan syndrome and fracture. PSYCHOSOCIAL: Negative. ENDOCRINE: Negative. DERM: Negative. CONSTITUTIONAL: Negative. Rest of the system review is not relevant. PHYSICAL EXAMINATION: Afebrile, heart rate is 82 with a blood pressure 120/88, respiratory rate 18, O2 sat is 96% on room air. There is no jugular venous distention. Carotid upstroke is diminished. There is no bruit. Chest exam reveals good air entry bilaterally. Heart exam reveals first and second heart sounds, irregular rhythm with a systolic murmur at the left lower sternal border. Abdomen is soft. Exam of extremities did not reveal any edema. Peripheral pulses are palpable. LAB: Show a hemoglobin of 12.1, platelet count is 160. Troponin the first set is elevated, but the subsequent 2 sets are normal. BNP is elevated. Influenza is negative. ASSESSMENT: 1. Weakness, fatigue and inability to get up, noncardiac in origin. Workup per primary. 2. Elevated troponin of unknown clinical significance. 3. Elevated BNP without a story consistent with congestive heart failure, has no clinical significance. 4. Permanent atrial fibrillation. 5. History of Marfan syndrome. PLAN: I will obtain a 2D echo to evaluate her LV function and when she is clinically more stable, we should consider a stress test on her. MMMUKESH / IJN: [id number] /
[2019-07-16] MEDS: AZITHROMYCIN 500 MG in SODIUM CHLORIDE 0.9% 250 ML IVPB SCH (23:17)
[2019-07-17] MEDS: ACETAMINOPHEN TAB 325 MG TAB PO PRN (04:02)
[2019-07-17] MEDS: SODIUM CHLORIDE 0.9% 1,000 ML IV SCH ×2 (04:03→16:50)
[2019-07-17] MEDS: PANTOPRAZOLE 40 MG TABLET PO SCH (07:01)
[2019-07-17 07:11] LABS: Albumin 2.8 g/dL (3.5-5.0); Calcium 9.4 mg/dL (8.4-10.2); Potassium 4.1 mmol/L (3.5-5.1); Total Bilirubin 0.7 mg/dL (0.2-1.3); Total Protein 5.8 g/dL (6.3-8.2)
[2019-07-17] MEDS: IPRATROPIUM-ALBUTEROL 3 ML NEB INHALATION SCH ×4 (07:48→19:47)
[2019-07-17] MEDS: METOPROLOL TARTRATE 50 MG TAB PO SCH (08:31)
[2019-07-17] MEDS: SPIRONOLACTONE 25 MG TAB PO SCH ×2 (08:31→21:02)
[2019-07-17] MEDS: ASPIRIN 325 MG TAB PO SCH (08:31)
[2019-07-17] MEDS: ESCITALOPRAM 10 MG TAB PO SCH (08:32)
[2019-07-17] MEDS: LOSARTAN 25 MG TAB PO SCH (08:32)
[2019-07-17] MEDS: FERROUS SULFATE 325 MG TAB PO SCH (08:32)
[2019-07-17] MEDS: APIXABAN 2.5 MG TABLET PO SCH ×2 (08:32→21:02)
--- NOTE | 2019-07-17 10:53 | P.DS ---
Providers Date of admission: 07/15/19 23:04 Expected date of discharge: 07/17/19 Attending physician: Aakash Romero MD Consults: 07/15/19 23:04 Consult Physician Urgent Consulting Provider: Stew Palacios Consult Reason/Comments: elevTrop Do you want consulting provider notified?: Yes 07/16/19 03:20 Consult Physician Routine Consulting Provider: Rubens Ibanez Consult Reason/Comments: left lATERAL MALLEOLUS FRACTURE Do you want consulting provider notified?: Yes, Notify in am Primary care physician: [facility] Course: 63-year-old female with PMH of Marfan syndrome, developmental delay, atrial fibrillation, abdominal aortic aneurysm presents the ED for generalized weakness and after a fall at home. Patient reported attempting to get into a car when sh e lost her footing and fell. She denied any loss of consciousness. In the ED, x-rays confirmed a nondisplaced fracture of the lateral malleolus. Chest x-ray showed possible right infiltrate. Urinalysis was positive for leukocyte esterase. She was noted to have an elevated troponin. Influenza testing was negative. Pelvic x-ray showed no acute changes. CT brain is negative. CT cervical spine showed degenerative changes, grade 1 anterolisthesis. Patient initially met sepsis criteria with heart rate greater than 100, leukocytosis of 12.5 and possible source of infection being UTI or pneumonia. Lactic acid was negative. She was started on Rocephin and azithromycin. Sputum, urine and blood cultures were ordered. Blood culture was negative at 24 hours. Urine culture came back positive with gram-negative bacilli. Troponins were 0.037, 0.034, 0.030 with EKG showing atrial fibrillation with RVR and T-wave changes. Echocardiogram was done which showed EF of 45-50% with grade 2 diastolic dysfunction. Acute coronary syndrome was ruled out. Cardiology was consulted and recommended outpatient stress test. Orthopedic surgery was consulted along with PT for her left lateral malleolus fracture, this was pending at the time of this note. Patient was noted to have an elevated BUN of 42 which is thought to be related to dehydration. Her BUN is 33 on discharge. Patient was seen and examined. No acute events overnight. Patient with no complaints today. He denies any chest pain, shortness breath or palpitations. No nausea or vomiting. No fever or chills. She denies any dysuria. General: [non toxic], [no distress], [appears at stated age] Derm: [warm], [dry] Head: [atraumatic], [normocephalic], [symmetric] Eyes: [EOMI], [no lid lag], [anicteric sclera] Mouth: [no lip lesion], [mucus membranes moist] Cardiovascular: [S1S2 reg], [irregularly irregular], [positive DP pulse bilateral], Lungs: [CTA bilateral], [no rhonchi, no rales] , [no accessory muscle use] Abdominal: [soft], [ nontender to palpation], [no guarding], [no appreciable organomegaly] Ext: [no gross muscle atrophy], [no edema], [no contractures], [left ankle restricted range of motion due to pain] Neuro: [no focal neuro deficits] Psych: [Alert], [oriented], [appropriate affect] Sepsis from community acquired pneumonia Urinary tract infection Elevated troponins rule out ACS Left lateral malleolus fracture Elevated BUN Transaminitis Chronic atrial fibrillation on Eliquis Marfan syndrome with history of learning disability Patient initially met sepsis criteria. Heart rate greater than 100, now resolved. Leukocytosis of 12.5 which is resolved. UA shows trace leukocyte esterase. Chest x-ray showing possible pneumonia. Lactic acid negative. Urine culture positive gram-negative bacilli. Blood culture negative at 24 hours. Plans: Transition antibiotic to levofloxacin for discharge. Follow sputum culture. Follow urine culture. Follow blood culture. Tylenol as needed for fever. Normal saline at 100 mL per hour. UA shows trace leukocyte esterase. Plans: Transition antibiotic to levofloxacin for discharge. Follow urine culture. Troponin 0.037, 0.034, 0.030 with EKG showing A. fib with RVR T-wave changes. Echocardiogram shows EF 45-50% with grade 2 diastolic dysfunction. Plans: ACS ruled out. Follow-up cardiology consultation. Telemetry monitoring. Stress is outpatient. As seen on ankle x-ray. Plans: Follow orthopedic consult. Pain control Tylenol or [place]. Follow PT and OT recommendations. BUN 42-33. Likely dehydration. Plans: Continue IVF as above. Repeat CMP tomorrow morning. Avoid nephrotoxins. AST 53-61, ALT 106-within normal limits. Unknown significance. Plans: Repeat CMP in the outpatient setting. Currently rate controlled. Plans: Continue metoprolol. Eliquis for anticoagulation. [Patient admitted after fall. Left lateral malleolus fracture. Orthopedic consulted. Found to have community-acquired pneumonia. On IV antibiotics. She is pending clinical improvement. Likely DC if cleared by orthopedic surgery and PT, discussed with RN, prem chen.] Pertinent Studies: Ankle x-ray, chest x-ray, pelvic x-ray, CT head, cervical spine CT, echocardiogram Patient Condition at Discharge: Stable Plan - Discharge Summary Discharge Rx Participant: Yes New Discharge Prescriptions: New Aspirin 81 mg PO DAILY #30 chewable Metoprolol Tartrate [Lopressor] 50 mg PO BID #60 tab Levofloxacin [Levaquin] 750 mg PO DAILY 5 Days #5 tab Continue Escitalopram [Lexapro] 15 mg PO DAILY Spironolactone [Aldactone] 25 mg PO BID Potassium Chloride ER [K-Dur 20] 20 meq PO DAILY Ferrous Sulfate [Iron (65 MG Elemental)] 325 mg PO DAILY Esomeprazole Magnesium [NexIUM] 40 mg PO DAILY Calcium Carbonate/Vitamin D3 [Calcium 600-Vit D3 500 Softgel] 1 cap PO BID Furosemide [Lasix] 40 mg PO DAILY Losartan [Cozaar] 25 mg PO DAILY Ketoconazole [Ketoconazole 2%] 1 applic TOPICAL DAILY Apixaban [Eliquis] 2.5 mg PO BID Multivitamins, Thera [Multivitamin (formulary)] 1 tab PO DAILY Wheat Dextrin [Benefiber] 2 tsp PO BID Discharge Medication List Calcium Carbonate/Vitamin D3 [Calcium 600-Vit D3 500 Softgel] 1 cap PO BID 10/17/18 [History] Escitalopram [Lexapro] 15 mg PO DAILY 10/17/18 [History] Esomeprazole Magnesium [NexIUM] 40 mg PO DAILY 10/17/18 [History] Ferrous Sulfate [Iron (65 MG Elemental)] 325 mg PO DAILY 10/17/18 [History] Furosemide [Lasix] 40 mg PO DAILY 10/17/18 [History] Potassium Chloride ER [K-Dur 20] 20 meq PO DAILY 10/17/18 [History] Spironolactone [Aldactone] 25 mg PO BID 10/17/18 [History] Apixaban [Eliquis] 2.5 mg PO BID 01/10/19 [History] Ketoconazole [Ketoconazole 2%] 1 applic TOPICAL DAILY 01/10/19 [History] Losartan [Cozaar] 25 mg PO DAILY 01/10/19 [History] Multivitamins, Thera [Multivitamin (formulary)] 1 tab PO DAILY 07/15/19 [History] Wheat Dextrin [Benefiber] 2 tsp PO BID 07/15/19 [History] Aspirin 81 mg PO DAILY #30 chewable 07/17/19 [Rx] Levofloxacin [Levaquin] 750 mg PO DAILY 5 Days #5 tab 07/17/19 [Rx] Metoprolol Tartrate [Lopressor] 50 mg PO BID #60 tab 07/17/19 [Rx] Follow up Appointment(s)/Referral(s): None,Stated [REFERRING] - 1-2 days Cyrus Abdi MD [STAFF PHYSICIAN] - 1 Week Rubens Ibanez MD [STAFF PHYSICIAN] - 1 Week Activity/Diet/Wound Care/Special Instructions: Diet: Low-salt Follow-up PCP within 3 days of discharge. Follow-up cardiology within 1 week of discharge. Patient will need a stress test that will be ordered in the outpatient setting by cardiology. Take antibiotics as advised. Follow-up orthopedic surgery. Discharge Disposition: HOME SELF-CARE
--- NOTE | 2019-07-17 13:05 | P.PN ---
Subjective Progress Note Date: 07/17/19 This is a 63-year-old female patient with history of persistent atrial fibrillation, hypertension, Marfan syndrome, abdominal aortic aneurysm with musculoskeletal disability who normally ambulates with a wheelchair, was brought to the hospital with symptoms of weakness, falls, she apparently fell off the [employer] ommode 2 days prior to coming to the hospital. She did incur a fracture to her ankle, she did not have any chest discomfort or shortness of breath no evidence of any peripheral edema. On presentation to the emergency room her initial white blood cell count was elevated, BNP was elevated of unclear etiology and she was noted to have an abnormality in troponin with her first troponin the subsequent ones were normal. Her EKG showed atrial fibrillation with nonspecific ST-T wave changes. Patient has known history of atrial fibrillation and takes Eliquis for this normally. Patient was noted on the monitor to have short runs of ventricular tachycardia, nonsustained, her made today is 200 pota ssium is 4.1, she is on a beta cecily. Her LV function shows an ejection fraction of 45-50% with severe mitral regurgitation noted. Objective - Vital Signs Vital signs: Vital Signs Temp 97.6 F 07/17/19 08:00 Pulse 80 07/17/19 11:29 Resp 18 07/17/19 08:00 BP 140/70 07/17/19 08:00 Pulse Ox 100 07/17/19 08:00 Intake & Output 07/16/19 07/17/19 07/17/19 18:59 06:59 18:59 Intake Total 480 240 Output Total 50 Balance 430 240 Weight 84 kg Intake: Oral 480 240 Output: Urine 50 Other: Voiding Method Bedpan Bedpan Bedpan # Voids 1 5 - Exam PHYSICAL EXAMINATION: GENERAL: She 3-year-old female in no acute distress at the time of my examination HEENT: Head is atraumatic, normocephalic. Pupils equal, round. Sclera anicteric. Conjunctiva are clear. Mucous membranes of the mouth are moist. Neck is supple. There is no elevated jugular venous pressure. No carotid bruit is heard. HEART EXAMINATION: S1 and S2 irregularly irregular a systolic murmur is heard CHEST EXAMINATION: Lungs are clear to auscultation and precussion. No chest wall tenderness is noted on palpation or with deep breathing. ABDOMEN: Soft, nontender. Bowel sounds are heard. No organomegaly noted. EXTREMITIES: 2+ peripheral pulses with no evidence of peripheral edema and no calf tenderness noted. NEUROLOGIC [patient is awake, alert - Labs CBC & Chem 7: 07/16/19 08:17 07/17/19 06:02 Labs: Abnormal Lab Results - Last 24 Hours (Table) 07/17/19 Range/Units 06:02 Chloride 108 H (98-107) mmol/L BUN 33 H (7-17) mg/dL Glucose 131 H (74-99) mg/dL ALT 61 H (4-34) U/L Total Protein 5.8 L (6.3-8.2) g/dL Albumin 2.8 L (3.5-5.0) g/dL Microbiology - Last 24 Hours (Table) 07/14/19 23:55 Blood Culture - Preliminary Blood No Growth after 24 hours 07/15/19 21:54 Urine Culture - Preliminary Urine,Catheterized Gram Neg Bacilli Assessment and Plan Plan: Assessment and plan #1 weakness, fatigue #2 Marfan #3 elevated troponin, not consistent with acute coronary syndrome #4 persistent atrial fibrillation #5 runs of nonsustained VT Plan We will review her echocardiogram with Doppler study. We will also increase her dose of beta cecily. Consider possible stress testing. DNP note has been reviewed, I agree with a documented findings and plan of care. Patient was seen and examined.
[2019-07-17 19:58] VITALS: RESP 18
[2019-07-17] MEDS: METOPROLOL TARTRATE 25 MG TAB PO SCH (21:02)
[2019-07-18] MEDS: AZITHROMYCIN 500 MG in SODIUM CHLORIDE 0.9% 250 ML IVPB SCH (00:27)
[2019-07-18] MEDS: SODIUM CHLORIDE 0.9% 1,000 ML IV SCH (04:55)
[2019-07-18] MEDS: PANTOPRAZOLE 40 MG TABLET PO SCH (06:38)
[2019-07-18] MEDS: IPRATROPIUM-ALBUTEROL 3 ML NEB INHALATION SCH ×3 (08:14→15:32)
[2019-07-18] MEDS: APIXABAN 2.5 MG TABLET PO SCH (09:13)
[2019-07-18] MEDS: ASPIRIN 325 MG TAB PO SCH (09:13)
[2019-07-18] MEDS: LOSARTAN 25 MG TAB PO SCH (09:13)
[2019-07-18] MEDS: FERROUS SULFATE 325 MG TAB PO SCH (09:13)
[2019-07-18] MEDS: ESCITALOPRAM 10 MG TAB PO SCH (09:13)
[2019-07-18] MEDS: METOPROLOL TARTRATE 25 MG TAB PO SCH (09:14)
[2019-07-18] MEDS: SPIRONOLACTONE 25 MG TAB PO SCH (09:14)
--- NOTE | 2019-07-18 10:47 | P.DS ---
Providers Date of admission: 07/15/19 23:04 Expected date of discharge: 07/18/19 Attending physician: Aakash Romero MD Consults: 07/15/19 23:04 Consult Physician Urgent Consulting Provider: Stew Palacios Consult Reason/Comments: elevTrop Do you want consulting provider notified?: Yes 07/16/19 03:20 Consult Physician Routine Consulting Provider: Rubens Ibanez Consult Reason/Comments: left lATERAL MALLEOLUS FRACTURE Do you want consulting provider notified?: Yes, Notify in am Primary care physician: Grisel Ureña Hospital Course: Discharge Diagnosis: Community acquired pneumonia urinary tract infection, ruled out Left lateral malleolus fracture Chronic atrial fibrillation on Eliquis Cardiomyopathy with EF 45-50%, outpatient stress test Valvular heart disease with severe mitral regurgitation Marfan syndrome Abdominal aortic aneurysm Elevated troponin not diagnostic of acute coronary syndrome Transaminitis, resolved, undetermined etiology Hospital Course: Patient is a 63-year-old female with a past medical history of atrial fibrillation, Marfan syndrome, aortic aneurysm, and prostate excavatum who presented to the emergency department secondary to increased swelling around her left ankle after a fall. In the emergency department she underwent an extensive evaluation. She was found have a left ankle lateral malleolus fracture that was nondisplaced. Her chest x-ray showed infiltrates in the right upper lung, urine did have small amount of white blood cells. Influenza was negative. CT of the head and neck demonstrated grade 1 anterior listhesis of C4 on C5 and degenerative changes at C5/6 and C6 /7. She was admitted for further monitoring. She was seen by orthopedic surgery who recommended a walking boot. She did have one mildly elevated troponin out of 3 that were trended. She was seen by cardiology and underwent echocardiogram which showed an ejection fractio n of 45-50%, diastolic dysfunction, and severe mitral regurgitation. Her beta cecily was increased. Cardiology recommended outpatient stress test once pneumonia is improved. Her elevated white blood cell count resolved and she was afebrile. She is determined stable for discharge. She was seen by PT and OT and was unable to safely ambulate on her own and therefore will go tomorrow for further rehabilitation. She will follow up with orthopedic surgery in 1 week, cardiology in 1-2 weeks, and we'll have her repeat chest x-ray in 1 week to ensure resolution of her pneumonia. She will complete an additional 3 days of Zithromax and Cefdinir for a total of 5 days of antibiotics. Patient seen and examined at bedside. Noc hest Vital signs reviewed and stable. General: non toxic, no distress, appears at stated age Derm: warm, dry Head: atraumatic, normocephalic, symmetric Eyes: EOMI, no lid lag, anicteric sclera Mouth: no lip lesion, mucus membranes moist Cardiovascular: S1S2 irreg, + diastolic murmur, positive posterior tibial pulse bilateral, pectus excavatum Lungs: CTA bilateral, no rhonchi, no rales , no accessory muscle use Abdominal: soft, nontender to palpation, no guarding, no appreciable organomegaly Ext: Walking boot in place left lower extremity, no gross muscle atrophy, no edema, no contractures Neuro: CN II-XI grossly intact, no focal neuro deficits Psych: Alert, oriented, appropriate affect A total of 35 minutes of time were spent preparing this complex discharge summary . Patient Condition at Discharge: Stable Plan - Discharge Summary Discharge Rx Participant: Yes New Discharge Prescriptions: New Metoprolol Tartrate [Lopressor] 75 mg PO BID #180 tab Cefdinir [Omnicef] 300 mg PO Q12HR #6 capsule Azithromycin [Zithromax] 500 mg PO DAILY 3 Days #3 tab Continue Escitalopram [Lexapro] 15 mg PO DAILY Spironolactone [Aldactone] 25 mg PO BID Potassium Chloride ER [K-Dur 20] 20 meq PO DAILY Ferrous Sulfate [Iron (65 MG Elemental)] 325 mg PO DAILY Esomeprazole Magnesium [NexIUM] 40 mg PO DAILY Calcium Carbonate/Vitamin D3 [Calcium 600-Vit D3 500 Softgel] 1 cap PO BID Furosemide [Lasix] 40 mg PO DAILY Losartan [Cozaar] 25 mg PO DAILY Ketoconazole [Ketoconazole 2%] 1 applic TOPICAL DAILY Apixaban [Eliquis] 2.5 mg PO BID Multivitamins, Thera [Multivitamin (formulary)] 1 tab PO DAILY Wheat Dextrin [Benefiber] 2 tsp PO BID Discharge Medication List Calcium Carbonate/Vitamin D3 [Calcium 600-Vit D3 500 Softgel] 1 cap PO BID 10/17/18 [History] Escitalopram [Lexapro] 15 mg PO DAILY 10/17/18 [History] Esomeprazole Magnesium [NexIUM] 40 mg PO DAILY 10/17/18 [History] Ferrous Sulfate [Iron (65 MG Elemental)] 325 mg PO DAILY 10/17/18 [History] Furosemide [Lasix] 40 mg PO DAILY 10/17/18 [History] Potassium Chloride ER [K-Dur 20] 20 meq PO DAILY 10/17/18 [History] Spironolactone [Aldactone] 25 mg PO BID 10/17/18 [History] Apixaban [Eliquis] 2.5 mg PO BID 01/10/19 [History] Ketoconazole [Ketoconazole 2%] 1 applic TOPICAL DAILY 01/10/19 [History] Losartan [Cozaar] 25 mg PO DAILY 01/10/19 [History] Multivitamins, Thera [Multivitamin (formulary)] 1 tab PO DAILY 07/15/19 [History] Wheat Dextrin [Benefiber] 2 tsp PO BID 07/15/19 [History] Azithromycin [Zithromax] 500 mg PO DAILY 3 Days #3 tab 07/18/19 [Rx] Cefdinir [Omnicef] 300 mg PO Q12HR #6 capsule 07/18/19 [Rx] Metoprolol Tartrate [Lopressor] 75 mg PO BID #180 tab 07/18/19 [Rx] Follow up Appointment(s)/Referral(s): None,Stated [REFERRING] - 1-2 days Cyrus Abdi MD [STAFF PHYSICIAN] - 1 Week Rubens Ibanez MD [STAFF PHYSICIAN] - 1 Week Terrell Paige [NON-STAFF] - Activity/Diet/Wound Care/Special Instructions: Diet: Low-salt Activity: as tolerated with assist Diet: heart healthy Special Instructions: wear walking boot Repeat CXR in 5 days DX: Pneumonia Patient will need a stress test that will be ordered in the outpatient setting by cardiology. Take antibiotics as advised. Discharge Disposition: HOME SELF-CARE
[2019-07-18 11:23] VITALS: BP 147/90; TEMP 97.7
--- NOTE | 2019-07-18 11:42 | P.PN ---
Subjective Progress Note Date: 07/18/19 This is a 63-year-old female patient with history of persistent atrial fibrillation, hypertension, Marfan syndrome, abdominal aortic aneurysm with musculoskeletal disability who normally ambulates with a wheelchair, was brought to the hospital with symptoms of weakness, falls, she apparently fell off the [facility] ommode 2 days prior to coming to the hospital. She did incur a fracture to her ankle, she did not have any chest discomfort or shortness of breath no evidence of any peripheral edema. On presentation to the emergency room her initial white blood cell count was elevated, BNP was elevated of unclear etiology and she was noted to have an abnormality in troponin with her first troponin the subsequent ones were normal. Her EKG showed atrial fibrillation with nonspecific ST-T wave changes. Patient has known history of atrial fibrillation and takes Eliquis for this normally. Patient was noted on the monitor to have short runs of ventricular tachycardia, nonsustained, her made today is 200 pota ssium is 4.1, she is on a beta cecily. Her LV function shows an ejection fraction of 45-50% with severe mitral regurgitation noted. 07/18/2019 Patient seen and examined this morning, doing well,hemodynamically stable, blood pressure 140/90 with a heart rate in the 90s, 97% on 2 L of oxygen. Objective - Vital Signs Vital signs: Vital Signs Temp 97.7 F 07/18/19 08:00 Pulse 86 07/18/19 08:29 Resp 18 07/18/19 08:00 BP 147/90 07/18/19 08:00 Pulse Ox 96 07/18/19 08:17 Intake & Output 07/17/19 07/18/19 07/18/19 18:59 06:59 18:59 Intake Total 240 790 240 Output Total 200 Balance 40 790 240 Weight 84 kg Intake: Oral 240 790 240 Output: Urine 200 Other: Voiding Method Bedpan Bedpan # Voids 1 3 - Exam PHYSICAL EXAMINATION: GENERAL: She 3-year-old female in no acute distress at the time of my examination HEENT: Head is atraumatic, normocephalic. Pupils equal, round. Sclera anicteric. Conjunctiva are clear. Mucous membranes of the mouth are moist. Neck is supple. There is no elevated jugular venous pressure. No carotid bruit is heard. HEART EXAMINATION: S1 and S2 irregularly irregular a systolic murmur is heard CHEST EXAMINATION: Lungs are clear to auscultation and precussion. No chest wall tenderness is noted on palpation or with deep breathing. ABDOMEN: Soft, nontender. Bowel sounds are heard. No organomegaly noted. EXTREMITIES: 2+ peripheral pulses with no evidence of peripheral edema and no calf tenderness noted. NEUROLOGIC [patient is awake, alert - Labs CBC & Chem 7: 07/16/19 08:17 07/17/19 06:02 Labs: Microbiology - Last 24 Hours (Table) 07/14/19 23:55 Blood Culture - Preliminary Blood No Growth after 48 hours 07/15/19 21:54 Urine Culture - Final Urine,Catheterized Escherichia coli Assessment and Plan Plan: Assessment and plan #1 weakness, fatigue #2 Marfan #3 elevated troponin, not consistent with acute coronary syndrome #4 persistent atrial fibrillation #5 runs of nonsustained VT Plan Echo cardiac gram with Doppler study was performed which revealed an ejection fraction of 45-50%, severe mitral regurgitation and moderate pulmonary hypertension.patient may be discharged or transferred back to [facility] from our perspective. We will make a follow-up appointment in the office post discharge. DNP note has been reviewed, I agree with a documented findings and plan of care. Patient was seen and examined.
--- NOTE | 2019-07-18 12:58 | P.CNOR ---
History of Present Illness - [facility] Consult date: 07/18/19 Consult reason: fracture History of present illness: Patient is pleasant 63 yo female seen at bedside this am in consultation for left ankle fracture. She was with her [id number] last 07/15/2019 when she rolled her left ankle. She has a history of Marfans and was experiencing generalized weakness at the time. She was admitted through the Ed 07/15/2019. She continues to have left ankle swelling and pain. She denies new numbness or tingling. No foot pain or heel pain. Review of Systems All systems: negative Constitutional: Denies chills, Denies fever Eyes: denies blurred vision, denies pain Ears, nose, mouth and throat: Denies headache, Denies sore throat Cardiovascular: Denies chest pain, Denies shortness of breath Respiratory: Denies cough Gastrointestinal: Denies abdominal pain, Denies diarrhea, Denies nausea, Denies vomiting Genitourinary: Denies dysuria, Denies hematuria Musculoskeletal: Denies myalgias Integumentary: Denies pruritus, Denies rash Neurological: Denies numbness, Denies weakness Psychiatric: Denies anxiety, Denies depression Endocrine: Denies fatigue, Denies weight change Past Medical History Past Medical History: Atrial Fibrillation Additional Past Medical History / Comment(s): Marfans syndrome, intellectual disability, AAA and aneurism behing left knee History of Any Multi-Drug Resistant Organisms: None Reported Additional Past Surgical History / Comment(s): hip and bilateral knees Past Psychological History: No Psychological Hx Reported Smoking Status: Never smoker Past Alcohol Use History: None Reported Past Drug Use History: None Reported - Past Family History Family Family Medical History: Unable to Obtain Medications and Allergies Home Medications Medication Instructions Recorded Confirmed Type Calcium Carbonate/Vitamin D3 1 cap PO BID 10/17/18 07/15/19 History [Calcium 600-Vit D3 500 Softgel] Escitalopram [Lexapro] 15 mg PO DAILY 10/17/18 07/15/19 History Esomeprazole Magnesium [NexIUM] 40 mg PO DAILY 10/17/18 07/15/19 History Ferrous Sulfate [Iron (65 MG 325 mg PO DAILY 10/17/18 07/15/19 History Elemental)] Furosemide [Lasix] 40 mg PO DAILY 10/17/18 07/15/19 History Potassium Chloride ER [K-Dur 20] 20 meq PO DAILY 10/17/18 07/15/19 History Spironolactone [Aldactone] 25 mg PO BID 10/17/18 07/15/19 History Apixaban [Eliquis] 2.5 mg PO BID 01/10/19 07/15/19 History Ketoconazole [Ketoconazole 2%] 1 applic TOPICAL DAILY 01/10/19 07/15/19 History Losartan [Cozaar] 25 mg PO DAILY 01/10/19 07/15/19 History Multivitamins, Thera [Multivitamin 1 tab PO DAILY 07/15/19 07/15/19 History (formulary)] Wheat Dextrin [Benefiber] 2 tsp PO BID 07/15/19 07/15/19 History Azithromycin [Zithromax] 500 mg PO DAILY 3 Days #3 tab 07/18/19 Rx Cefdinir [Omnicef] 300 mg PO Q12HR #6 capsule 07/18/19 Rx Metoprolol Tartrate [Lopressor] 75 mg PO BID #180 tab 07/18/19 Rx Allergies Allergy/AdvReac Type Severity Reaction Status Date / Time No Known Allergies Allergy Verified 07/15/19 23:41 Physical Examination Inspection of left ankle shows swelling and echymosis at the lateral ankle. The re are no wounds or erythema. There is tenderness at the lateral malleolus/distal fibula and ligaments. No medial ankle pain. The ankle appears ligamentously stable. No pain at 5th metatarsal base. achilles intact. motor and sensation intact throughout left lower leg. calf is SNT. 2+ DP pulse and less than 2 sec cap refill present. Results XRays of left ankle shows subtle distal fibula fracture without displacement. no other fracture dislocation identified - Labs Labs: Microbiology - Last 24 Hours (Table) 07/14/19 23:55 Blood Culture - Preliminary Blood No Growth after 48 hours 07/15/19 21:54 Urine Culture - Final Urine,Catheterized Escherichia coli H & H 07/15/19 07/16/19 Range/Units 20:47 08:17 Hgb 12.6 12.1 (11.4-16.0) gm/dL Hct 37.1 37.2 (34.0-46.0) % Result Diagrams: 07/16/19 08:17 07/17/19 06:02 - Diagnostic results Ankle/Foot x-ray: report reviewed, image reviewed Assessment and Plan (1) Fracture of left ankle, lateral malleolus Narrative/Plan: She is to wear a walking boot while ambulating with weightbearing to tolerance. She should ice and elevate left ankle. She does not need boot on in bed. She may f/u as outpatient in one week. Pain management per primary and DVT prophylaxis. Current Visit: Yes Status: Acute Priority: Medium Code(s): S82.62XA - DISP FX OF LATERAL MALLEOLUS OF LEFT FIBULA, INIT SNOMED Code(s): 882003364 Time with Patient: Less than 30
[2019-07-18 15:35] VITALS: PULSE 92
[2019-07-18] MEDS ORDERED: AZITHROMYCIN 500 MG TAB PO SCH (21:00)
[2019-07-18] MEDS ORDERED: CEFDINIR 300 MG CAP PO SCH (21:00)
--- NOTE | 2019-07-21 06:53 | CDI ---
Documentation Clarification Form Date: 07/21/19 From: Key Beltran Phone: If you have a question about this query, please contact Maci Cortes, Meter Reading Clerk at [phone] between 8am and 5pm. Admit Date: 07/15/19 Discharge Date: 07/18/19 Patient Name: Rachel Marvin Visit Number: [id number] ATTENTION: The Clinical Documentation Specialists (CDI) and [facility] Coding Staff appreciate your assistance in clarifying documentation. Please respond to the clarification below the line at the bottom and electronically sign. The CDI & [facility] Coding staff will review the response and follow-up if needed. Please note: Queries are made part of the Legal Health Record. If you have any questions, please contact the author of this message via ITS. Dear Dr. Yaneth Lopez, Atrial Fibrillation is documented in the ED note, H&P, consults, PNs & DS's. Per H&P (Dr Romero) chronic atrial fibrillation. Per Cardiology (Dr Abdi) permanet atrial fibrillation Per Cardiology (Serene Be/Dr Burkett) Persistent atrial fibrillation History/Risk Factors: Marfan's syndrome, cardiomyopathy, AAA, mitral insufficiency Clinical Indicators: Weakness, fatigue and inability to get up EKG/telemetry: Atrial fibrillation w RVR Treatment: Eliquis 2.5 mg po bid In your professional opinion, can you please clarify the type of Atrial Fibrillation, if known? Chronic Permanent Paroxysmal Persistent, longstanding Persistent, other Persistent, permanent Other, please specify Unable to determine Already was documented on discharge summary completed on 07/18/18 as chronic...... no need to document further MTDD
--- NOTE | 2019-07-21 07:02 | CDI ---
Documentation Clarification Form Date: 07/21/19 From: Key Beltran Phone: If you have a question about this query, please contact Maci Cortes, Scrap Drop Operator at [phone] between 8am and 5pm. Admit Date: 07/15/19 Discharge Date: 07/18/19 Patient Name: Rachel Marvin Visit Number: [id number] ATTENTION: The Clinical Documentation Specialists (CDI) and [facility] Coding Staff appreciate your assistance in clarifying documentation. Please respond to the clarification below the line at the bottom and electronically sign. The CDI & [facility] Coding staff will review the response and follow-up if needed. Please note: Queries are made part of the Legal Health Record. If you have any questions, please contact the author of this message via ITS. Dear Dr. Yaneth Lopez, The diagnosis sepsis was documented in the H&P, 07/16 PN & Dr Sadie VILLALTA , but is not noted in subsequent documentation. History/Risk Factors: Marfan's syndrome, cardiomyopathy, AAA, mitral insufficiency Clinical Indicators: Initially met sepsis criteria, Heart rate greater than 100, leukocytosis of 12.5, UA shows trace leukocyte esterase, urine culture positive gram-negative bacilli (E Coli), blood culture negative, total bilirubin 1.2 and plasma lactic acid 0.9 Treatment: IV fluids, IV Zithromax, IV Rocephin, dc'd on Omnicef 300 mg po bid Please clarify if the sepsis was Present/active this admission Sepsis ruled out Other, please specify Clinically unable to determine PNA with sepsis MTDD
--- NOTE | 2019-07-21 07:18 | CDI ---
Documentation Clarification Form Date: 07/21/19 From: Key Beltran Phone: If you have a question about this query, please contact Maci Cortes, Yard Coupler at [phone] between 8am and 5pm. Admit Date: 07/15/19 Discharge Date: 07/18/19 Patient Name: Rachel Marvin Visit Number: [id number] ATTENTION: The Clinical Documentation Specialists (CDI) and [facility] Coding Staff appreciate your assistance in clarifying documentation. Please respond to the clarification below the line at the bottom and electronically sign. The CDI & [facility] Coding staff will review the response and follow-up if needed. Please note: Queries are made part of the Legal Health Record. If you have any questions, please contact the author of this message via ITS. Dear Dr. Yaneth Lopez, Conflicting documentation has been found in the medical record: H&P by Dr Romero state patient has UTI. 07/[address] Noel states patient has UTI. DS by Dr Noel states patient has UTI. Your DS states UTI ruled out. History/Risk Factors: Marfan's syndrome, cardiomyopathy, AAA, mitral insufficiency, a fib UA: cloudy, protein-2+, blood-trace, leukocyte esterase-trace, bacteria-many Urine culture: E coli w colony count >1000, 000 CFU/ML Treatment: IV Rocephin & dc'd on Omnicef 300 mg PO bid In your opinion, what is the most clinically appropriate diagnosis for this patient? UTI UTI ruled out Other explanation of clinical findings Unable to determine (no explanation for clinical findings) UTI ruled out STATED BY ME IN DISCHARGE SUMMARY you have to have symptoms for a UTI which the patient did not MTDD
== END 2019-07-18 18:00 | DRG 871 ==
LOC: EC 19:35 → 3SCARD 23:04
PROVIDERS: ADMIT Internal Medicine; ATTEND Internal Medicine
DX: A41.9 Sepsis, unspecified organism (principal); J18.9 Pneumonia, unspecified organism; Q87.40 Marfan syndrome, unspecified; I47.2 Ventricular tachycardia; I42.9 Cardiomyopathy, unspecified; I48.20 Chronic atrial fibrillation, unspecified; S82.65XA Nondisplaced fracture of lateral malleolus of left fibula, initial encounter for closed fracture; E86.0 Dehydration; I34.0 Nonrheumatic mitral (valve) insufficiency; I71.4 Abdominal aortic aneurysm, without rupture; I72.4 Aneurysm of artery of lower extremity; M43.12 Spondylolisthesis, cervical region; I10 Essential (primary) hypertension; F89 Unspecified disorder of psychological development; F81.9 Developmental disorder of scholastic skills, unspecified; R29.6 Repeated falls; R79.89 Other specified abnormal findings of blood chemistry; R74.0 Nonspecific elevation of levels of transaminase and lactic acid dehydrogenase [LDH]; Z79.01 Long term (current) use of anticoagulants; Z79.899 Other long term (current) drug therapy; Z99.3 Dependence on wheelchair; W01.0XXA Fall on same level from slipping, tripping and stumbling without subsequent striking against object, initial encounter; Y92.009 Unspecified place in unspecified non-institutional (private) residence as the place of occurrence of the external cause
CPT/HCPCS: 36415; 70450; 71046; 72125; 72170; 80048; 80053; 80061; 81001; 82140; 82550; 83605; 83735; 83880; 84100; 84443; 84484; 85025; 87040; 87077; 87086; 87186; 87502; 93005; 93306; 94640; 94760; 96361; 96365; 96366; 96368; 99291

== ENCOUNTER 2019-08-16 17:44 | Emergency (ER) | payer MEDICARE, OTHER ==
--- NOTE | 2019-08-16 18:38 | ED ---
Fall HPI - General Chief Complaint: Fall Stated Complaint: Fall, facial injury Time Seen by Provider: 08/16/19 17:58 Source: patient Mode of arrival: wheelchair - History of Present Illness Initial Comments: Patient is a 63-year-old female with past medical history of Marfan syndrome as well as mental disability, presenting to the emergency department after falling 2 days ago. She is here with her polisher numeral. The polisher numeral states that patient fell into a dresser 2 days ago in the morning. LOC is unknown. EMS was called however the guardian at the time refused treatment and she was not evaluated. Patient is on eliquis for A. fib. Endodontic Assistant here today states that patient has seemed to be unsteady on her feet ever since the fall and also has an increase in her mouth tic. Patient also has significant bruising of her face. Patient denies pain anywhere else from the fall. She does have a walking boot on her left lower extremity from a previous ankle fracture. She was just released from [facility] [place] 3 days ago secondary to this injury. There are no other complaints at this time. Upon arrival to ER, her vital signs are stable. - Related Data Home Medications Medication Instructions Recorded Confirmed Calcium Carbonate/Vitamin D3 1 cap PO BID 10/17/18 07/15/19 [Calcium 600-Vit D3 500 Softgel] Escitalopram [Lexapro] 15 mg PO DAILY 10/17/18 07/15/19 Esomeprazole Magnesium [NexIUM] 40 mg PO DAILY 10/17/18 07/15/19 Ferrous Sulfate [Iron (65 MG 325 mg PO DAILY 10/17/18 07/15/19 Elemental)] Furosemide [Lasix] 40 mg PO DAILY 10/17/18 07/15/19 Potassium Chloride ER [K-Dur 20] 20 meq PO DAILY 10/17/18 07/15/19 Spironolactone [Aldactone] 25 mg PO BID 10/17/18 07/15/19 Apixaban [Eliquis] 2.5 mg PO BID 01/10/19 07/15/19 Ketoconazole [Ketoconazole 2%] 1 applic TOPICAL DAILY 01/10/19 07/15/19 Losartan [Cozaar] 25 mg PO DAILY 01/10/19 07/15/19 Multivitamins, Thera [Multivitamin 1 tab PO DAILY 07/15/19 07/15/19 (formulary)] Wheat Dextrin [Benefiber] 2 tsp PO BID 07/15/19 07/15/19 Previous Rx's Medication Instructions Recorded Azithromycin [Zithromax] 500 mg PO DAILY 3 Days #3 tab 07/18/19 Cefdinir [Omnicef] 300 mg PO Q12HR #6 capsule 07/18/19 Metoprolol Tartrate [Lopressor] 75 mg PO BID #180 tab 07/18/19 Allergies Allergy/AdvReac Type Severity Reaction Status Date / Time No Known Allergies Allergy Verified 08/16/19 17:50 Review of Systems ROS Statement: Those systems with pertinent positive or pertinent negative responses have been documented in the HPI. ROS Other: All systems not noted in ROS Statement are negative. Past Medical History Past Medical History: Atrial Fibrillation Additional Past Medical History / Comment(s): Marfans syndrome, intellectual disability, AAA and aneurism behing left knee History of Any Multi-Drug Resistant Organisms: None Reported Additional Past Surgical History / Comment(s): hip and bilateral knees Past Psychological History: No Psychological Hx Reported Smoking Status: Never smoker Past Alcohol Use History: None Reported Past Drug Use History: None Reported - Past Family History Family Family Medical History: Unable to Obtain General Exam - General Exam Comments Initial Comments: GENERAL: Well-appearing, well-nourished and in no acute distress. HEAD: Patient has large hematoma to the right side of the forehead along with significant bruising. No Ron sign. EYES: Pupils equal round and reactive to light, extraocular movements intact, sclera anicteric, conjunctiva are normal. Bilateral raccoon eyes. ENT: TMs normal, nares patent, oropharynx clear without exudates. Moist mucous membranes. NECK: Normal range of motion, supple without lymphadenopathy or JVD. LUNGS: Breath sounds clear to auscultation bilaterally and equal. No wheezes rales or rhonchi. Mild bruising to right breast. HEART: Regular rate and rhythm without murmurs, rubs or gallops. ABDOMEN: Soft, nontender, normoactive bowel sounds. No guarding, no rebound. No masses appreciated. : Deferred EXTREMITIES: Walking boot on left lower extremity. Brace on the right lower extremity. Normal range of motion, no pitting or edema. No clubbing or cyanosis. NEUROLOGICAL: Cranial nerves II through XII grossly intact. Normal speech. Left sided mouth tic, chronic. PSYCH: Normal mood, normal affect. SKIN: Warm, Dry, normal turgor, no rashes or lesions noted. Limitations: no limitations Course Vital Signs 08/16/19 17:46 Temperature 97.4 F L Pulse Rate 89 Respiratory 20 Rate Blood Pressure 144/95 O2 Sat by Pulse 98 Oximetry Medical Decision Making - Medical Decision Making Patient is a 63-year-old female here after falling 2 days ago. Patient is on eliquis secondary to A. fib. Patient has significant bruising to her face and it hematoma on the right forehead. CT scans of the head, neck, facial bones revealed no acute abnormalities other than a right sided hematoma. No intracranial bleeding or fractures. There are some stable chronic changes noted. I discussed these findings with the patient's family and polisher numeral. Patient is stable for discharge at this time. She does have appointment with her PCP tomorrow. Return parameters were discussed with the polisher numeral and guardian and they both verbalized understanding. Case is discussed with Dr. Marcus. Disposition Clinical Impression: Fall, Traumatic hematoma of forehead Disposition: HOME SELF-CARE Condition: Stable Instructions (If sedation given, give patient instructions): Fall Prevention for Older Adults (ED) Additional Instructions: Please return to the Emergency Department if symptoms worsen or any other concerns. Follow-up with PCP tomorrow as discussed. CT of the brain, neck, facial bones showed no acute bleeding or fractures. Stable chronic changes are noted. Is patient prescribed a controlled substance at d/c from ED?: No Referrals: Nonstaff,Physician [Primary Care Provider] - 1-2 days
--- NOTE | 2019-08-16 19:01 | CT ---
EXAMINATION TYPE: CT brain eh wo con DATE OF EXAM: 08/16/2019 COMPARISON: 07/15/2019 HISTORY: Fall today with frontal injury CT DLP: 1132.3 mGycm Automated exposure control for dose reduction was used. Multiple axial sections were obtained of the brain without contrast. Multiple axial sections were obt ained from the skull base to T1 vertebra without contrast. FINDINGS: There is right frontal scalp hematoma measuring up to 1 cm in thickness. There is diffuse cerebral at rophy. There is no mass effect nor midline shift. There is some widening of the subdural space over t he right posterior frontal lobe convexity that could relate to an old infarct or old subdural hemorrh age. There is no evidence of a skull fracture. The skull base is intact. There is no evidence of intr acranial hemorrhage. Cervical vertebra have fairly normal alignment. There is 4 mm anterior subluxation of C4 in relation to C5. There is mild facet arthropathy in the mid and lower cervical spine. There is no compression f racture. There is spurring anteriorly at C5-6 and C6-7. There is some spurring of the endplates at C5 -6 posteriorly. IMPRESSION: Degenerative minimal subluxation at C4-5. No fracture seen of the cervical spine. No change. Cerebral atrophy. Old encephalomalacia or chronic subdural hemorrhage right posterior frontal lobe un changed. No acute intracranial abnormality. Acute right frontal scalp hematoma.
--- NOTE | 2019-08-16 19:05 | CT ---
EXAMINATION TYPE: CT facial bones wo con DATE OF EXAM: 08/16/2019 COMPARISON: 05/09/2018 HISTORY: Fall today with frontal injury CT DLP: 1132.3 mGycm Automated exposure control for dose reduction was used. Multiple axial sections were obtained from the bottom of the mandible to the top of the frontal sinus es without contrast. Mandibular ring is intact. Temporomandibular joints are intact. There is some arthritic change in the right temporomandibular joint. Zygomatic arches appear intact. Nasal bone shows no fracture. The max illa is intact. There is no evidence of retro-orbital mass. There is no evidence of a blowout fractur e. Orbital margins are intact. There is right frontal scalp hematoma. This measures up to 10 mm in th ickness. IMPRESSION: Acute right frontal scalp hematoma. No fracture seen. Facial bones appear intact. There is healing of the nasal bone fracture compared to old exam.
[2019-08-16 20:02] VITALS: BP 124/87; PULSE 80; RESP 18; TEMP 97.6
== END 2019-08-16 19:58 | disposition home or self-care (01) ==
LOC: EC 17:44
DX: S00.83XA Contusion of other part of head, initial encounter (principal); I48.91 Unspecified atrial fibrillation; F79 Unspecified intellectual disabilities; Z79.01 Long term (current) use of anticoagulants; Z79.899 Other long term (current) drug therapy; W19.XXXA Unspecified fall, initial encounter; Y92.009 Unspecified place in unspecified non-institutional (private) residence as the place of occurrence of the external cause
CPT/HCPCS: 70450; 70486; 72125; 99283

== ENCOUNTER 2019-08-31 02:18 | Emergency (ER) | payer MEDICARE, OTHER ==
[2019-08-31 03:13] VITALS: TEMP 97.7
--- NOTE | 2019-08-31 03:20 | CT ---
EXAMINATION TYPE: CT brain cspine wo con DATE OF EXAM: 08/31/2019 COMPARISON: August 16, 2019 HISTORY: fall CT DLP: 1330.6 mGycm Automated exposure control for dose reduction was used. CT scan of the brain and cervical spine without contrast. There is some cerebral cortical atrophy. There is some high attenuation nodular areas along the anter ior aspect of the right temporal lobe convexity suggestive of acute subdural hemorrhage. There is no midline shift. There is no mass effect. The calvarium is intact. There is some anterior mild subluxation of C4 in relation to C5. There is narrowing of the C5-6 C6-7 disc spaces with spurring. I see no cervical spine fracture. There is multilevel cervical hypertrophi c facet arthropathy. The skull base is intact. There is small right frontal scalp soft tissue swellin g and hematoma. IMPRESSION: Acute nodular subdural hemorrhage right anterior temporal lobe. Small right frontal scalp hematoma. S ubdural hemorrhage measures overall 2 x 1 cm. No mass effect. Spondylotic changes in the cervical spine. No fracture seen. This exam was discussed with the patient's PA in the emergency room at 3:30 AM.
--- NOTE | 2019-08-31 03:39 | XR ---
EXAMINATION TYPE: XR chest 2V DATE OF EXAM: 08/31/2019 COMPARISON: July 16, 2019 HISTORY: Fall. Chest pain. TECHNIQUE: FINDINGS: Heart is moderately enlarged. There is no heart failure. Lungs are clear of consolidation. There is no pleural effusion. There are chest leads. Bony thorax is intact. IMPRESSION: Moderate cardiomegaly. No heart failure. There is clearing of the pulmonary congestion an d right lower lobe pneumonia compared to old exam.
[2019-08-31 03:50] LABS: Basophils % (A) 0 %; Eosinophils # (A) 0.1 k/uL (0-0.7); Eosinophils % (A) 2 %; HCT 41.4 % (34.0-46.0); HGB 13.6 gm/dL (11.4-16.0); Lymphocytes # (A) 1.1 k/uL (1.0-4.8); Lymphocytes % (A) 19 %; MCHC 32.8 g/dL (31.0-37.0); MCV 97.5 fL (80.0-100.0); Mean Platelet Volume 8.5; Monocytes # (A) 0.5 k/uL (0-1.0); Monocytes % (A) 9 %; Neutrophils # (A) 3.9 k/uL (1.3-7.7); Neutrophils % (A) 67 %; Platelet Count 129 k/uL (150-450); RBC 4.25 m/uL (3.80-5.40); RDW 14.4 % (11.5-15.5); WBC 5.9 k/uL (3.8-10.6)
--- NOTE | 2019-08-31 03:53 | ED ---
General Adult HPI - General Chief complaint: Trauma Stated complaint: Fall/ Head Injury Time Seen by Provider: 08/31/19 02:26 Source: EMS, RN notes reviewed, old records reviewed Mode of arrival: EMS Limitations: altered mental status - History of Present Illness Initial comments: 63-year-old female patient past history significant for atrial fibrillation, anticoagulated on eliquis, Marfan syndrome previously for chief complaint of falls loss of consciousness today. Patient reportedly got up to use the bathroom when she fell backwards. Patient did strike her head on her wheelchair and had a loss of consciousness for approximately 3 minutes. Patient was then transferred to Hospital. Upon evaluation patient denies any complaints. Denies any pain. Systemic: Pt denies fatigue, fever/chills, rash. Pt denies weakness, night sweats, weight loss. Neuro: Pt denies headache, visual disturbances, syncope or pre-syncope. HEENT: Pt denies ocular discharge or irritation, otalgia, rhinorrhea, pharyngitis or notable lymphadenopathy. Cardiopulmonary: Pt denies chest pain, SOB, heart palpitations, dyspnea on exertion. Abdominal/GI: Pt denies abdominal pain, n/v/d. : Pt denies dysuria, burning w/ urination, frequency/urgency. Denies new onset urinary or bowel incontinence. MSK: Pt denies myalgia, loss of strength or function in extremities. Neuro: Pt denies new onset weakness, paresthesias. - Related Data Home Medications Medication Instructions Recorded Confirmed Calcium Carbonate/Vitamin D3 1 cap PO BID 10/17/18 07/15/19 [Calcium 600-Vit D3 500 Softgel] Escitalopram [Lexapro] 15 mg PO DAILY 10/17/18 07/15/19 Esomeprazole Magnesium [NexIUM] 40 mg PO DAILY 10/17/18 07/15/19 Ferrous Sulfate [Iron (65 MG 325 mg PO DAILY 10/17/18 07/15/19 Elemental)] Furosemide [Lasix] 40 mg PO DAILY 10/17/18 07/15/19 Potassium Chloride ER [K-Dur 20] 20 meq PO DAILY 10/17/18 07/15/19 Spironolactone [Aldactone] 25 mg PO BID 10/17/18 07/15/19 Apixaban [Eliquis] 2.5 mg PO BID 01/10/19 07/15/19 Ketoconazole [Ketoconazole 2%] 1 applic TOPICAL DAILY 01/10/19 07/15/19 Losartan [Cozaar] 25 mg PO DAILY 01/10/19 07/15/19 Multivitamins, Thera [Multivitamin 1 tab PO DAILY 07/15/19 07/15/19 (formulary)] Wheat Dextrin [Benefiber] 2 tsp PO BID 07/15/19 07/15/19 Previous Rx's Medication Instructions Recorded Azithromycin [Zithromax] 500 mg PO DAILY 3 Days #3 tab 07/18/19 Cefdinir [Omnicef] 300 mg PO Q12HR #6 capsule 07/18/19 Metoprolol Tartrate [Lopressor] 75 mg PO BID #180 tab 07/18/19 Allergies Allergy/AdvReac Type Severity Reaction Status Date / Time No Known Allergies Allergy Verified 08/16/19 17:50 Review of Systems ROS Statement: Those systems with pertinent positive or pertinent negative responses have been documented in the HPI. ROS Other: All systems not noted in ROS Statement are negative. Past Medical History Past Medical History: Atrial Fibrillation Additional Past Medical History / Comment(s): Marfans syndrome, intellectual disability, AAA and aneurism behing left knee History of Any Multi-Drug Resistant Organisms: None Reported Additional Past Surgical History / Comment(s): hip and bilateral knees Past Psychological History: No Psychological Hx Reported Smoking Status: Never smoker Past Alcohol Use History: None Reported Past Drug Use History: None Reported - Past Family History Family Family Medical History: Unable to Obtain General Exam - General Exam Comments Initial Comments: Constitutional: NAD, AOX3, Pt has pleasant affect. HEENT: NC/AT, trachea midline, neck supple, no lymphadenopathy. Posterior pharynx non erythematous, without exudates. External ears appear normal, without discharge. Mucous membranes moist. Eyes PERRLA, EOM intact. There is no scleral icterus. No pallor noted. Cardiopulmonary: RRR, no murmurs, rubs or gallops, no JVD noted. Lungs CTAB in anterior and posterior spencer. No peripheral edema. Abdominal exam: Abdomen soft and non-distended. Abdomen non-tender to palpation in all 4 quadrants. Bowel sounds active in LLQ. No hepatosplenomegaly. No ecchymosis Neuro: CN II-XII intact. No nuchal rigidity. No hemotympanum. No cervical spinal tenderness. Old bruising noted on face. MSK: No posterior calf tenderness bilaterally, homans sign negative bilaterally. Posterior tibialis and radial pulse +2 bilaterally. Sensation intact in upper and lower extremities. Full active ROM in upper and lower extremities, 5/5 stregnth. Limitations: altered mental status Course Vital Signs 08/31/19 03:08 Temperature 97.7 F Pulse Rate 90 Respiratory 18 Rate Blood Pressure 141/110 O2 Sat by Pulse 96 Oximetry Medical Decision Making - Medical Decision Making 63-year-old female patient past history significant for atrial fibrillation, a nticoagulated on eliquis, Marfan syndrome previously for chief complaint of falls loss of consciousness today. Patient reportedly got up to use the bathroom when she fell backwards. Patient did strike her head on her wheelchair and had a loss of consciousness for approximately 3 minutes. Patient was then transferred to Hospital. Upon evaluation patient denies any complaints. Denies any pain. Patient vital signs displayed mild hypertension. Physical exam displayed intact neurologic exam. Old bruising noted on face from fall sustained on 08/16. CT brain and C-spine displayed acute nodular subdural hemorrhage right anterior temporal lobe. Small right frontal scalp hematoma. Subdural hemorrhage measures 2 x 1 cm. No mass effect. Cervical spine negative for acute process. EKG displayed atrial fibrillation, no significant change from prior. Patient continues to remain asymptomatic. Repeat neurologic exam is within normal limits. Patient be transferred to medical clinic of Hospital for neurosurgical evaluation. Accepting physician Dr. Matthew. Case discussed in depth with Dr. Luis. - Lab Data Result diagrams: 08/31/19 02:21 Lab Results 08/31/19 Range/Units 02:21 WBC 5.9 (3.8-10.6) k/uL RBC 4.25 (3.80-5.40) m/uL Hgb 13.6 (11.4-16.0) gm/dL Hct 41.4 (34.0-46.0) % MCV 97.5 (80.0-100.0) fL MCH 32.0 (25.0-35.0) pg MCHC 32.8 (31.0-37.0) g/dL RDW 14.4 (11.5-15.5) % Plt Count 129 L (150-450) k/uL Neutrophils % 67 % Lymphocytes % 19 % Monocytes % 9 % Eosinophils % 2 % Basophils % 0 % Neutrophils # 3.9 (1.3-7.7) k/uL Lymphocytes # 1.1 (1.0-4.8) k/uL Monocytes # 0.5 (0-1.0) k/uL Eosinophils # 0.1 (0-0.7) k/uL Basophils # 0.0 (0-0.2) k/uL - EKG Data -: EKG Interpreted by Me (and Dr. Luis) EKG Comments: Ventricular rate 83, QRS 112, QT/QTC 396 is 465. Atrial fibrillation with competing junctional pacemaker. ST abnormality. No significant change from prior. Disposition Clinical Impression: Subdural hemorrhage, Fall Disposition: OTHER INSTITUTION NOT DEFINED Condition: Serious Is patient prescribed a controlled substance at d/c from ED?: No Referrals: None,Stated [Primary Care Provider] - 1-2 days - Out of Hospital Transfer - Req. Specs Out of Hospital Transfer - Requested Specifics: Other Emergency Center ([facility] neurosurgery)
[2019-08-31 03:54] VITALS: RESP 16
[2019-08-31 04:00] LABS: Bacteria,Urine Occasional /hpf; Mucus,Urine Rare /hpf; Partial Thromboplastin Time 24.8 sec (22.0-30.0); Prothrombin Time 10.3 sec (9.0-12.0); RBC,Urine 1 /hpf (0-5); Squamous Epithelial Cell,Urine 1 /hpf (0-4); WBC,Urine 16 /hpf (0-5)
[2019-08-31 04:01] LABS: Appearance,Urine Clear (Clear); Color,Urine Yellow
[2019-08-31 04:02] LABS: Bilirubin,Urine Negative (Negative); Blood,Urine Negative (Negative); Glucose,Urine (UA) Negative (Negative); Ketones,Urine Negative (Negative); Leukocyte Esterase,Urine Small (Negative); Nitrite,Urine Negative (Negative); Protein,Urine Negative (Negative); Urobilinogen,Urine <2.0 mg/dL (<2.0)
[2019-08-31 04:12] LABS: Albumin 3.8 g/dL (3.5-5.0); Potassium 4.4 mmol/L (3.5-5.1); Total Protein 6.9 g/dL (6.3-8.2)
[2019-08-31] MEDS ORDERED: MORPHINE SULFATE 4 MG/ML SYRINGE IV STA (04:15)
[2019-08-31 04:22] VITALS: BP 139/91; PULSE 89
== END 2019-08-31 04:26 | disposition other institution (70) ==
LOC: EC 02:18
DX: S06.5X9A Traumatic subdural hemorrhage with loss of consciousness of unspecified duration, initial encounter (principal); S00.03XA Contusion of scalp, initial encounter; I48.91 Unspecified atrial fibrillation; Q87.40 Marfan syndrome, unspecified; Z79.01 Long term (current) use of anticoagulants; Z79.899 Other long term (current) drug therapy; W18.09XA Striking against other object with subsequent fall, initial encounter
CPT/HCPCS: 36415; 70450; 71046; 72125; 80053; 81001; 84484; 85025; 85610; 85730; 87086; 93005; 99285

== ENCOUNTER 2019-12-13 09:13 | Inpatient (IN) | payer MEDICARE, OTHER ==
[2019-12-13] MEDS ORDERED: SODIUM CHLORIDE 0.9% 500 ML 500 ML IV STA (09:47)
--- NOTE | 2019-12-13 09:57 | ED ---
General Adult HPI - General Chief complaint: Arrhythmia/Palpitations Stated complaint: chest pain Source: RN notes reviewed, old records reviewed, Caregiver Mode of arrival: wheelchair Limitations: no limitations - History of Present Illness Initial comments: This is a 64-year-old female who presents to the emergency department with a past medical history significant for Marfan's congestive heart failure and atrial fibrillation. Caregiver is with the patient states the patient is a very poor historian. Caregiver gives all the history. According to the caregiver the patient seems very weak today was unable to stand up on her own without some assistance and then when she walks she moves very slowly and did appear slightly short of breath. The patient did say something to the caregiver about feeling her heart pounding but the caregiver states that she is very inaccurate and if you ask her question often she'll just say yes to the question. There is been no recent fevers or cough. According to the caregiver there's been no vomiting or diarrhea. And the patient has not appeared short of breath other than this morning when she was trying to walk today. - Related Data Home Medications Medication Instructions Recorded Confirmed Calcium Carbonate/Vitamin D3 1 cap PO DAILY 10/17/18 12/13/19 [Calcium 600-Vit D3 500 Softgel] Escitalopram [Lexapro] 15 mg PO DAILY 10/17/18 12/13/19 Esomeprazole Magnesium [NexIUM] 40 mg PO DAILY 10/17/18 12/13/19 Ferrous Sulfate [Iron (65 MG 325 mg PO HS 10/17/18 12/13/19 Elemental)] Furosemide [Lasix] 40 mg PO DAILY 10/17/18 12/13/19 Potassium Chloride ER [K-Dur 20] 20 meq PO DAILY 10/17/18 12/13/19 Spironolactone [Aldactone] 25 mg PO BID 10/17/18 12/13/19 Ketoconazole [Ketoconazole 2%] 1 applic TOPICAL DAILY 01/10/19 12/13/19 Losartan [Cozaar] 25 mg PO DAILY 01/10/19 12/13/19 Multivitamins, Thera [Multivitamin 1 tab PO HS 07/15/19 12/13/19 (formulary)] Wheat Dextrin [Benefiber] 2 tsp PO BID 07/15/19 12/13/19 Metoprolol Tartrate [Lopressor] 25 mg PO BID 12/13/19 12/13/19 Allergies Allergy/AdvReac Type Severity Reaction Status Date / Time No Known Allergies Allergy Verified 12/13/19 09:53 Review of Systems ROS Statement: Those systems with pertinent positive or pertinent negative responses have been documented in the HPI. ROS Other: All systems not noted in ROS Statement are negative. 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 Patient is nontoxic and well-hydrated and is in mild distress. ENT: Neck is soft and supple. No significant lymphadenopathy is noted. Oropharynx is clear. Moist mucous membranes. Neck has full range of motion without eliciting any pain. EYES: The sclera were anicteric and conjunctiva were pink and moist. Extraocular movements were intact and pupils were equal round and reactive to light. Eyelids were unremarkable. PULMONARY: Unlabored respirations. Good breath sounds bilaterally. No audible rales rhonchi or wheezing was noted. CARDIOVASCULAR: Irregular heartbeat ABDOMEN: Soft and nontender with normal bowel sounds. SKIN: Skin is clear with no lesions or rashes and otherwise unremarkable. NEUROLOGIC: Patient is alert and oriented 2. Cranial nerves II through XII are grossly intact. Motor and sensory are also intact. Normal speech, volume and content. Symmetrical smile. MUSCULOSKELETAL: Patient has braces on both of her lower legs. LYMPHATICS: No significant lymphadenopathy is noted PSYCHIATRIC: Normal psychiatric evaluation. Limitations: no limitations Course Vital Signs 12/13/19 12/13/19 12/13/19 09:17 09:32 10:00 Temperature 97.9 F Pulse Rate 84 Respiratory 18 Rate Blood Pressure 147/88 119/88 O2 Sat by Pulse 99 95 Oximetry 12/13/19 12/13/19 12/13/19 10:30 11:00 11:30 Temperature Pulse Rate 83 86 83 Respiratory 28 H 29 H 22 Rate Blood Pressure 129/97 135/101 O2 Sat by Pulse 94 L 94 L 96 Oximetry Medical Decision Making - Medical Decision Making EKG shows atrial fibrillation at 80 bpm QRS is 114 QT interval 398 QTC is 459. EKG shows no ST segment elevation. - Lab Data Result diagrams: 12/13/19 09:30 12/13/19 09:30 Lab Results 12/13/19 12/13/19 12/13/19 Range/Units 09:30 09:30 09:30 WBC 9.2 (3.8-10.6) k/uL RBC 3.88 (3.80-5.40) m/uL Hgb 12.0 (11.4-16.0) gm/dL Hct 38.6 (34.0-46.0) % MCV 99.4 (80.0-100.0) fL MCH 31.0 (25.0-35.0) pg MCHC 31.2 (31.0-37.0) g/dL RDW 14.8 (11.5-15.5) % Plt Count 153 (150-450) k/uL Neutrophils % 84 % Lymphocytes % 7 % Monocytes % 6 % Eosinophils % 2 % Basophils % 0 % Neutrophils # 7.7 (1.3-7.7) k/uL Lymphocytes # 0.6 L (1.0-4.8) k/uL Monocytes # 0.5 (0-1.0) k/uL Eosinophils # 0.2 (0-0.7) k/uL Basophils # 0.0 (0-0.2) k/uL Hypochromasia Slight Macrocytosis Slight PT 10.7 (9.0-12.0) sec INR 1.0 (<1.2) APTT 25.9 (22.0-30.0) sec Sodium 142 (137-145) mmol/L Potassium 4.0 (3.5-5.1) mmol/L Chloride 104 (98-107) mmol/L Carbon Dioxide 30 (22-30) mmol/L Anion Gap 8 mmol/L BUN 31 H (7-17) mg/dL Creatinine 0.79 (0.52-1.04) mg/dL Est GFR (CKD-EPI)AfAm >90 (>60 ml/min/1.73 sqM) Est GFR (CKD-EPI)NonAf 79 (>60 ml/min/1.73 sqM) Glucose 129 H (74-99) mg/dL Plasma Lactic Acid Derek (0.7-2.0) mmol/L Calcium 10.2 (8.4-10.2) mg/dL Magnesium 2.0 (1.6-2.3) mg/dL Total Bilirubin 1.2 (0.2-1.3) mg/dL AST 29 (14-36) U/L ALT 23 (4-34) U/L Alkaline Phosphatase 57 (38-126) U/L Troponin I (0.000-0.034) ng/mL Total Protein 7.0 (6.3-8.2) g/dL Albumin 3.9 (3.5-5.0) g/dL Urine Color Urine Appearance (Clear) Urine pH (5.0-8.0) Ur Specific [place] (1.001-1.035) Urine Protein (Negative) Urine Glucose (UA) (Negative) Urine Ketones (Negative) Urine Blood (Negative) Urine Nitrite (Negative) Urine Bilirubin (Negative) Urine Urobilinogen (<2.0) mg/dL Ur Leukocyte Esterase (Negative) Urine RBC (0-5) /hpf Urine WBC (0-5) /hpf Ur Squamous Epith Cells (0-4) /hpf Urine Bacteria (None) /hpf Urine Mucus (None) /hpf 12/13/19 12/13/19 12/13/19 Range/Units 09:30 09:30 11:15 WBC (3.8-10.6) k/uL RBC (3.80-5.40) m/uL Hgb (11.4-16.0) gm/dL Hct (34.0-46.0) % MCV (80.0-100.0) fL MCH (25.0-35.0) pg MCHC (31.0-37.0) g/dL RDW (11.5-15.5) % Plt Count (150-450) k/uL Neutrophils % % Lymphocytes % % Monocytes % % Eosinophils % % Basophils % % Neutrophils # (1.3-7.7) k/uL Lymphocytes # (1.0-4.8) k/uL Monocytes # (0-1.0) k/uL Eosinophils # (0-0.7) k/uL Basophils # (0-0.2) k/uL Hypochromasia Macrocytosis PT (9.0-12.0) sec INR (<1.2) APTT (22.0-30.0) sec Sodium (137-145) mmol/L Potassium (3.5-5.1) mmol/L Chloride (98-107) mmol/L Carbon Dioxide (22-30) mmol/L Anion Gap mmol/L BUN (7-17) mg/dL Creatinine (0.52-1.04) mg/dL Est GFR (CKD-EPI)AfAm (>60 ml/min/1.73 sqM) Est GFR (CKD-EPI)NonAf (>60 ml/min/1.73 sqM) Glucose (74-99) mg/dL Plasma Lactic Acid Derek 1.1 (0.7-2.0) mmol/L Calcium (8.4-10.2) mg/dL Magnesium (1.6-2.3) mg/dL Total Bilirubin (0.2-1.3) mg/dL AST (14-36) U/L ALT (4-34) U/L Alkaline Phosphatase (38-126) U/L Troponin I <0.012 (0.000-0.034) ng/mL Total Protein (6.3-8.2) g/dL Albumin (3.5-5.0) g/dL Urine Color Light Yellow Urine Appearance Cloudy H (Clear) Urine pH 6.5 (5.0-8.0) Ur Specific [place] 1.010 (1.001-1.035) Urine Protein Negative (Negative) Urine Glucose (UA) Negative (Negative) Urine Ketones Negative (Negative) Urine Blood Negative (Negative) Urine Nitrite Negative (Negative) Urine Bilirubin Negative (Negative) Urine Urobilinogen <2.0 (<2.0) mg/dL Ur Leukocyte Esterase Negative (Negative) Urine RBC 1 (0-5) /hpf Urine WBC 2 (0-5) /hpf Ur Squamous Epith Cells <1 (0-4) /hpf Urine Bacteria Moderate H (None) /hpf Urine Mucus Rare H (None) /hpf Disposition Clinical Impression: Dyspnea, Weakness Disposition: ADMITTED IP TO THIS HOSP Referrals: Grisel Ureña MD [Primary Care Provider] - 1-2 days Time of Disposition: 12:36
--- NOTE | 2019-12-13 10:20 | XR ---
EXAMINATION TYPE: XR chest 2V DATE OF EXAM: 12/13/2019 COMPARISON: 08/31/2019 HISTORY: Weakness and chest pain TECHNIQUE: Frontal and lateral views of the chest are obtained. FINDINGS: Cardiomediastinal silhouette is enlarged. There is chronic right hemidiaphragm elevation. Diffuse osseous demineralization is seen. No new focal consolidation, pleural effusion or pneumothora x. IMPRESSION: No acute cardiopulmonary process. Persisting cardiomegaly as seen on the prior.
[2019-12-13 10:24] LABS: Basophils % (A) 0 %; Eosinophils # (A) 0.2 k/uL (0-0.7); Eosinophils % (A) 2 %; HCT 38.6 % (34.0-46.0); Hypochromasia Slight; Lymphocytes # (A) 0.6 k/uL (1.0-4.8); Lymphocytes % (A) 7 %; MCHC 31.2 g/dL (31.0-37.0); MCV 99.4 fL (80.0-100.0); Macrocytosis Slight; Mean Platelet Volume 8.2; Monocytes # (A) 0.5 k/uL (0-1.0); Monocytes % (A) 6 %; Neutrophils # (A) 7.7 k/uL (1.3-7.7); Neutrophils % (A) 84 %; Platelet Count 153 k/uL (150-450); RBC 3.88 m/uL (3.80-5.40); RDW 14.8 % (11.5-15.5); WBC 9.2 k/uL (3.8-10.6)
[2019-12-13 10:30] LABS: ALT 23 U/L (4-34); AST 29 U/L (14-36); African American GFR (CKD) >90 (>60 ml/min/1.73 sqM); Albumin 3.9 g/dL (3.5-5.0); Alkaline Phosphatase 57 U/L (38-126); Anion Gap 8 mmol/L; Blood Urea Nitrogen 31 mg/dL (7-17); Calcium 10.2 mg/dL (8.4-10.2); Carbon Dioxide 30 mmol/L (22-30); Chloride 104 mmol/L (98-107); Glucose 129 mg/dL (74-99); Non-African American GFR(CKD) 79 (>60 ml/min/1.73 sqM); Sodium 142 mmol/L (137-145); Total Bilirubin 1.2 mg/dL (0.2-1.3)
[2019-12-13 10:52] LABS: Partial Thromboplastin Time 25.9 sec (22.0-30.0); Prothrombin Time 10.7 sec (9.0-12.0)
[2019-12-13 11:29] LABS: Appearance,Urine Cloudy (Clear); Bacteria,Urine Moderate /hpf; Bilirubin,Urine Negative (Negative); Blood,Urine Negative (Negative); Color,Urine Light Yellow; Glucose,Urine (UA) Negative (Negative); Ketones,Urine Negative (Negative); Leukocyte Esterase,Urine Negative (Negative); Mucus,Urine Rare /hpf; Nitrite,Urine Negative (Negative); PH, Urine 6.5 (5.0-8.0); Protein,Urine Negative (Negative); RBC,Urine 1 /hpf (0-5); Squamous Epithelial Cell,Urine <1 /hpf (0-4); Urobilinogen,Urine <2.0 mg/dL (<2.0); WBC,Urine 2 /hpf (0-5)
[2019-12-13] MEDS ORDERED: NITROGLYCERIN SL TABS 0.4 MG TAB SUBLINGUAL PRN (12:36)
[2019-12-13] MEDS ORDERED: ACETAMINOPHEN TAB 325 MG TAB PO PRN (19:42)
--- NOTE | 2019-12-13 20:15 | P.HPIM ---
History of Present Illness H&P Date: 12/13/19 Chief Complaint: Chest pain 64-year-old female with PMH of Marfan's, aortic aneurysm, atrial fibrillation, learning disability, cardiomyopathy, history of frequent falls with subdural hematoma presents to the ED after machine adjuster helper sent her in for complaints of chest pain and generalized weakness. Her guardian who is also her [id number] is at bedside. Patient states that she woke up this morning with chest pain. She describes the pain as pressure-like in nature. Pain was substernal and nonradiating. Also, machine adjuster helper noted that patient had generalized weakness and was unable to stand up from a sitting position. Of note, patient was admitted to [facility] on August after her third fall this year. She was diagnosed with subdural hematoma. Patient denies smoking cigarettes or any alcohol use. She denies any headache, lower extremity edema, nausea or vomiting, fever or chills, cough, shortness of breath, changes in urination or bowel habits. No changes in appetite or weight. She denies any dizziness, numbness/weakness/tingling of the extremities. In the ED, her vital signs were stable. CBC showed chronic lymphopenia. INR was 1. CMP showed BUN of 31 and glucose of 129. Lactic acid was negative. Troponin was less than 0.012, EKG showing atrial fibrillation with ventricular rate of 80. Urinalysis was negative for leukocyte esterase or nitrites. Chest x-ray showed cardiomegaly. Patient is admitted for generalized weakness and chest pain, rule out acute coronary syndrome with cardiology consultation. Review of Systems Pertinent positives and negatives as discussed in HPI, a complete review of systems was performed and all other systems are negative. 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 Date of last positivie culture/infection: 08/31/19 MDRO Source:: VRE URINE Additional Past Surgical History / Comment(s): hip and bilateral knees Past Psychological History: No Psychological Hx Reported Smoking Status: Never smoker Past Alcohol Use History: None Reported Past Drug Use History: None Reported - Past Family History Family Family Medical History: Unable to Obtain Medications and Allergies Home Medications Medication Instructions Recorded Confirmed Type Calcium Carbonate/Vitamin D3 1 cap PO DAILY 10/17/18 12/13/19 History [Calcium 600-Vit D3 500 Softgel] Escitalopram [Lexapro] 15 mg PO DAILY 10/17/18 12/13/19 History Esomeprazole Magnesium [NexIUM] 40 mg PO DAILY 10/17/18 12/13/19 History Ferrous Sulfate [Iron (65 MG 325 mg PO HS 10/17/18 12/13/19 History Elemental)] Furosemide [Lasix] 40 mg PO DAILY 10/17/18 12/13/19 History Potassium Chloride ER [K-Dur 20] 20 meq PO DAILY 10/17/18 12/13/19 History Spironolactone [Aldactone] 25 mg PO BID 10/17/18 12/13/19 History Ketoconazole [Ketoconazole 2%] 1 applic TOPICAL DAILY 01/10/19 12/13/19 History Losartan [Cozaar] 25 mg PO DAILY 01/10/19 12/13/19 History Multivitamins, Thera [Multivitamin 1 tab PO HS 07/15/19 12/13/19 History (formulary)] Wheat Dextrin [Benefiber] 2 tsp PO BID 07/15/19 12/13/19 History Metoprolol Tartrate [Lopressor] 25 mg PO BID 12/13/19 12/13/19 History Allergies Allergy/AdvReac Type Severity Reaction Status Date / Time No Known Allergies Allergy Verified 12/13/19 09:53 Physical Exam Vitals: Vital Signs Temp Pulse Pulse Resp BP BP Pulse Ox 12/13/19 16:41 94 L 12/13/19 16:00 97.4 F L 94 16 136/89 94 L 12/13/19 13:28 98.7 F 88 18 136/81 98 12/13/19 13:27 88 18 136/81 98 12/13/19 13:00 84 19 139/101 95 12/13/19 12:30 98.7 F 88 25 H 134/90 95 12/13/19 12:00 87 24 129/84 93 L 12/13/19 11:30 83 22 135/101 96 12/13/19 11:00 86 29 H 129/97 94 L 12/13/19 10:30 83 28 H 94 L 12/13/19 10:00 119/88 12/13/19 09:32 95 12/13/19 09:17 97.9 F 84 18 147/88 99 Intake and Output 12/13/19 12/13/19 12/13/19 06:59 14:59 22:59 Intake Total 480 Balance 480 Intake: Oral 480 Other: # Voids 1 Weight 77.111 kg 77.111 kg General: [non toxic], [no distress], [appears at stated age] Derm: [warm], [dry], [lip movements consistent with tardive dyskinesia] Head: [atraumatic], [normocephalic], [symmetric] Eyes: [EOMI], [no lid lag], [anicteric sclera] Mouth: [no lip lesion], [mucus membranes moist] Cardiovascular: [S1S2 irregular], [no murmur], [positive DP pulse bilateral], Lungs: [CTA bilateral], [no rhonchi, no rales] , [no accessory muscle use] Abdominal: [soft], [ nontender to palpation], [no guarding], [no appreciable organomegaly] Ext: [no gross muscle atrophy], [no edema], [no contractures] Neuro: [ CN II-XI grossly intact], [bilateral upper extremities 5 out of 5 strength, bilateral lower extremities 3 out of 5 strength, sensation intact to touch throughout] Psych: [Alert], [oriented], [appropriate affect] Results CBC & Chem 7: 12/13/19 09:30 12/13/19 09:30 Labs: Abnormal Lab Results - Last 24 Hours (Table) 12/13/19 12/13/19 12/13/19 Range/Units 09:30 09:30 11:15 Lymphocytes # 0.6 L (1.0-4.8) k/uL BUN 31 H (7-17) mg/dL Glucose 129 H (74-99) mg/dL Urine Appearance Cloudy H (Clear) Urine Bacteria Moderate H (None) /hpf Urine Mucus Rare H (None) /hpf Thrombosis Risk Factor Assmnt - Choose All That Apply Each Risk Factor Represents 2 Points: Age 61-74 years Thrombosis Risk Factor Assessment Total Risk Factor Score: 2 Thrombosis Risk Factor Assessment Level: Low Risk Assessment and Plan Assessment: Chest pain, rule out acute coronary syndrome Atrial fibrillation Systolic and diastolic CHF, stable Generalized weakness History of subdural hematoma History of aortic aneurysm Patient's troponin has been less than 0.0122 with EKG showing atrial fibrillation. Acute coronary syndrome has been ruled out. An echocardiogram has been ordered. Cardiology has been consulted from the ED. Patient will be placed on telemetry monitoring. We will discontinue aspirin due to her history of subdural hematoma. Her atrial fibrillation is currently rate controlled. She'll be continued on metoprolol. She follows Dr. Cisneros in the outpatient setting. She is currently not on any anticoagulation due to her frequent falls. She has an echocardiogram from July 2019 that shows EF of 45-50% with grade 2 diastolic dysfunction. We will continue her home medication of Lasix, losartan, metoprolol and Aldactone. She is currently euvolemic. Her guardian reports patient is at baseline at the time of H&P. She does have 24-hour supervision at home. PT and OT will be consulted. Patient was referred to neurosurgery for follow-up after her discharge from [facility]. She does not present with any focal neurological deficits. She will need to follow-up with neurosurgery at discharge. Patient was referred to cardiothoracic surgery for follow-up after her discharge from [facility]. Appointment is scheduled for guardian for a later date. DVT prophylaxis: [SCD boots] Discussed with: [Patient and guardian] Anticipated discharge: [1-2 days] Anticipated discharge place: [Home] A total of [45] minutes was spent on the care of this complex patient more than 50% of the time was spent in counseling and care coordination. Guardian reports that patient is NO CODE.
[2019-12-13] MEDS ORDERED: FERROUS SULFATE 325 MG TAB PO SCH (21:00)
[2019-12-13] MEDS: SPIRONOLACTONE 25 MG TAB PO SCH (21:22)
[2019-12-13] MEDS: METOPROLOL TARTRATE 25 MG TAB PO SCH (21:22)
[2019-12-14 02:23] LABS: Cholesterol 137 mg/dL (<200); HDL Cholesterol 39 mg/dL (40-60)
[2019-12-14 02:29] LABS: LDL Cholesterol,Calculated 85 mg/dL (0-99); Triglycerides 64 mg/dL (<150)
[2019-12-14] MEDS ORDERED: PANTOPRAZOLE 40 MG TABLET PO SCH (07:30)
[2019-12-14] MEDS: METOPROLOL TARTRATE 25 MG TAB PO SCH (08:28)
[2019-12-14] MEDS: SPIRONOLACTONE 25 MG TAB PO SCH (08:28)
[2019-12-14 08:32] VITALS: BP 135/88; PULSE 98; RESP 16; TEMP 98.1
[2019-12-14] MEDS ORDERED: ASPIRIN 325 MG TAB PO SCH (09:00)
[2019-12-14] MEDS ORDERED: ESCITALOPRAM 10 MG TAB PO SCH (09:00)
[2019-12-14] MEDS ORDERED: FUROSEMIDE 40 MG TAB PO SCH (09:00)
[2019-12-14] MEDS ORDERED: LOSARTAN 25 MG TAB PO SCH (09:00)
--- NOTE | 2019-12-14 09:55 | P.CRDCN ---
History of Present Illness Consult date: 12/14/19 Requesting physician: Yaneth Lopez Consult reason: atrial fibrillation Chief complaint: weakness History of present illness: this is a pleasant 64-year-old female with known history of persistent atrial fibrillation, hypertension, Marfan syndrome, abdominal aortic aneurysm with musculoskeletal disability who normally ambulates with a wheelchair, but does also do some walking and has bilateral leg braces. Most of the history was obtained from the medical record although patient could also answer a significant amount of questions. She was apparently brought from the hospital t o hear because of significant weakness and fatigue.apparently the patient also appeared to be quite weak when she would try to move, she was moving more so than usual and also appeared to be short of breath.chest x-ray on presentation here did not reveal any acute cardiopulmonary process.EKG showed atrial fibrillation with controlled ventricular response. Nonspecific ST-T wave changes.blood pressure 135/88, heart rate in the 90s low 100s, 96% on room air.White blood cell count 9.2, hemoglobin 12.0, platelet count 153. Sodium 142, potassium 4.0, BUN 31, creatinine 0.7.patient used to take Eliquis for anticoagulation, this was discontinued because of falls. 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 Date of last positivie culture/infection: 08/31/19 MDRO Source:: VRE URINE Additional Past Surgical History / Comment(s): hip and bilateral knees Past Psychological History: No Psychological Hx Reported Smoking Status: Never smoker Past Alcohol Use History: None Reported Past Drug Use History: None Reported - Past Family History Family Family Medical History: Unable to Obtain Medications and Allergies Home Medications Medication Instructions Recorded Confirmed Type Calcium Carbonate/Vitamin D3 1 cap PO DAILY 10/17/18 12/13/19 History [Calcium 600-Vit D3 500 Softgel] Escitalopram [Lexapro] 15 mg PO DAILY 10/17/18 12/13/19 History Esomeprazole Magnesium [NexIUM] 40 mg PO DAILY 10/17/18 12/13/19 History Ferrous Sulfate [Iron (65 MG 325 mg PO HS 10/17/18 12/13/19 History Elemental)] Furosemide [Lasix] 40 mg PO DAILY 10/17/18 12/13/19 History Potassium Chloride ER [K-Dur 20] 20 meq PO DAILY 10/17/18 12/13/19 History Spironolactone [Aldactone] 25 mg PO BID 10/17/18 12/13/19 History Ketoconazole [Ketoconazole 2%] 1 applic TOPICAL DAILY 01/10/19 12/13/19 History Losartan [Cozaar] 25 mg PO DAILY 01/10/19 12/13/19 History Multivitamins, Thera [Multivitamin 1 tab PO HS 07/15/19 12/13/19 History (formulary)] Wheat Dextrin [Benefiber] 2 tsp PO BID 07/15/19 12/13/19 History Metoprolol Tartrate [Lopressor] 25 mg PO BID 12/13/19 12/13/19 History Allergies Allergy/AdvReac Type Severity Reaction Status Date / Time No Known Allergies Allergy Verified 12/13/19 09:53 Physical Exam Vitals: Vital Signs Temp Pulse Pulse Resp BP BP Pulse Ox 12/14/19 08:00 98.1 F 98 16 135/88 96 12/14/19 03:52 97.9 F 101 H 18 134/97 94 L 12/14/19 00:00 98.2 F 99 17 141/94 93 L 12/13/19 20:00 99.2 F 94 18 119/72 93 L 12/13/19 16:41 94 L 12/13/19 16:00 97.4 F L 94 16 136/89 94 L 12/13/19 13:28 98.7 F 88 18 136/81 98 12/13/19 13:27 88 18 136/81 98 12/13/19 13:00 84 19 139/101 95 12/13/19 12:30 98.7 F 88 25 H 134/90 95 12/13/19 12:00 87 24 129/84 93 L 12/13/19 11:30 83 22 135/101 96 12/13/19 11:00 86 29 H 129/97 94 L 12/13/19 10:30 83 28 H 94 L 12/13/19 10:00 119/88 Intake and Output 12/13/19 12/14/19 12/14/19 22:59 06:59 14:59 Intake Total 480 100 Balance 480 100 Intake: Oral 480 100 Other: # Voids 1 1 1 # Bowel Movements 1 0 Weight 77.111 kg 80.5 kg PHYSICAL EXAMINATION: GENERAL:64-year-old female in no acute distress at the time of my examination HEENT: Head is atraumatic, normocephalic. Pupils equal, round. Sclera anicteric. Conjunctiva are clear. Mucous membranes of the mouth are moist. Neck is supple. There is no elevated jugular venous pressure.no carotid bruit is heard. HEART EXAMINATION: [Heart S1, [id number] irregularnormal. No murmur or gallop heard.] CHEST EXAMINATION:[ Lungs are clear to auscultation and precussion. No chest wall tenderness is noted on palpation or with deep breathing.] ABDOMEN: [ Soft, nontender. Bowel sounds are heard. No organomegaly noted]. EXTREMITIES:[ 2+ peripheral pulses with no evidence of peripheral edema and no calf tenderness noted]. NEUROLOGIC [patient is awake, alert and oriented2 . Results 12/13/19 09:30 12/13/19 09:30 Cardiac Enzymes 12/13/19 12/13/19 12/13/19 Range/Units 09:30 09:30 15:32 AST 29 (14-36) U/L Troponin I <0.012 <0.012 (0.000-0.034) ng/mL 12/13/19 Range/Units 20:58 AST (14-36) U/L Troponin I <0.012 (0.000-0.034) ng/mL Coagulation 12/13/19 Range/Units 09:30 PT 10.7 (9.0-12.0) sec APTT 25.9 (22.0-30.0) sec Lipids 12/13/19 Range/Units 09:30 Triglycerides 64 (<150) mg/dL Cholesterol 137 (<200) mg/dL HDL Cholesterol 39 L (40-60) mg/dL CBC 12/13/19 Range/Units 09:30 WBC 9.2 (3.8-10.6) k/uL RBC 3.88 (3.80-5.40) m/uL Hgb 12.0 (11.4-16.0) gm/dL Hct 38.6 (34.0-46.0) % Plt Count 153 (150-450) k/uL Comprehensive Metabolic Panel 12/13/19 Range/Units 09:30 Sodium 142 (137-145) mmol/L Potassium 4.0 (3.5-5.1) mmol/L Chloride 104 (98-107) mmol/L Carbon Dioxide 30 (22-30) mmol/L BUN 31 H (7-17) mg/dL Creatinine 0.79 (0.52-1.04) mg/dL Glucose 129 H (74-99) mg/dL Calcium 10.2 (8.4-10.2) mg/dL AST 29 (14-36) U/L ALT 23 (4-34) U/L Alkaline Phosphatase 57 (38-126) U/L Total Protein 7.0 (6.3-8.2) g/dL Albumin 3.9 (3.5-5.0) g/dL Current Medications Generic Name Dose Route Start Last Admin Trade Name Freq PRN Reason Stop Dose Admin Acetaminophen 650 mg 12/13/19 19:42 Tylenol Tab PO Q6HR PRN Mild Pain or Fever > 100.5 Escitalopram Oxalate 15 mg 12/14/19 09:00 12/14/19 08:28 Lexapro PO 15 mg DAILY LEELA Administration Ferrous Sulfate 325 mg 12/13/19 21:00 12/13/19 21:22 Feosol PO 325 mg HS LEELA Administration Furosemide 40 mg 12/14/19 09:00 12/14/19 08:28 Lasix PO 40 mg DAILY LEELA Administration Losartan Potassium 25 mg 12/14/19 09:00 12/14/19 08:28 Cozaar PO 25 mg DAILY LEELA Administration Metoprolol Tartrate 25 mg 12/13/19 21:00 12/14/19 08:28 Lopressor PO 25 mg BID LEELA Administration Nitroglycerin 0.4 mg 12/13/19 12:36 Nitrostat SUBLINGUAL Q5M PRN Chest Pain Pantoprazole Sodium 40 mg 12/14/19 07:30 12/14/19 06:24 Protonix PO 40 mg [id number] LEELA Administration Spironolactone 25 mg 12/13/19 21:00 12/14/19 08:28 Aldactone PO 25 mg BID LEELA Administration Intake and Output 12/13/19 12/14/19 12/14/19 22:59 06:59 14:59 Intake Total 480 100 Balance 480 100 Intake: Oral 480 100 Other: # Voids 1 1 1 # Bowel Movements 1 0 Weight 77.111 kg 80.5 kg 12/13/19 09:30 12/13/19 09:30 EKG Interpretations (text) EKG shows atrial fibrillation with a controlled ventricular response, nonspecif ic ST-T wave changes. Assessment and Plan Plan: assessment and plan #1 symptoms of weakness #2 chronic persistent atrial fibrillation, not on anticoagulation because of falls and history of subdural hematoma #3 echo performed in July of this year revealed an ejection fraction of 45- 50%, we will repeat an echo on this admission as well. Number for Marfan's syndrome #5 hypertension #6 abdominal aortic aneurysm Plan From cardiology's perspective, we would recommend to continue the patient on metoprolol, obtain a repeat echo. Discharge home soon. DNP note has been reviewed, I agree with a documented findings and plan of care. Patient was seen and examined.
--- NOTE | 2019-12-14 10:52 | ECHOF ---
Referral Reason:SOB MEASUREMENTS -------- HEIGHT: 180.3 cm WEIGHT: 80.3 kg BP: 134/97 RVIDd: 2.7 cm (< 3.3) IVSd: 1.6 cm (0.6 - 1.1) LVIDd: 4.9 cm (3.9 - 5.3) LVPWd: 1.6 cm (0.6 - 1.1) IVSs: 1.7 cm LVIDs: 3.1 cm LVPWs: 2.1 cm LA Diam: 1.3 cm (2.7 - 3.8) LAESV Index (A-L): 145.83 ml/m Ao Diam: 3.9 cm (2.0 - 3.7) AV Cusp: 2.0 cm (1.5 - 2.6) LA Diam: 5.2 cm (2.7 - 3.8) MV EXCURSION: 22.907 mm (> 18.000) MV EF SLOPE: 192 mm/s (70 - 150) EPSS: 0.5 cm AR PHT: 467 ms RAP: 5.00 mmHg RVSP: 48.34 mmHg FINDINGS -------- Atrial fibrillation. This was a technically good study. The left ventricular size is normal. There is moderate concentric left ventricular hypertrophy. O verall left ventricular systolic function is mildly impaired with, an EF between 45 - 50 %. The right ventricle is normal in size. LA is severely dilated >40 ml/m2 The right atrial size is normal. Possible ASD Dropout seen in the interatrial septum The aortic valve is trileaflet and appears structurally normal. There is mild aortic regurgitation. The mitral valve is normal. The mitral valve leaflets are mildly thickened. Severe mitral regurgi tation is present. The tricuspid valve appears structurally normal. Moderate tricuspid regurgitation present. There is moderate pulmonary hypertension. The right ventricular systolic pressure, as measured by Doppler , is 48.34mmHg. Trace/mild (physiologic) pulmonic regurgitation. The aortic root size is normal. IVC Not well visulized. There is no pericardial effusion. CONCLUSIONS -------- 1. Atrial fibrillation. 2. This was a technically good study. 3. The left ventricular size is normal. 4. There is moderate concentric left ventricular hypertrophy. 5. Overall left ventricular systolic function is mildly impaired with, an EF between 45 - 50 %. 6. The right ventricle is normal in size. 7. LA is severely dilated >40 ml/m2 8. The right atrial size is normal. 9. Possible ASD 10. Dropout seen in the interatrial septum 11. The aortic valve is trileaflet and appears structurally normal. 12. There is mild aortic regurgitation. 13. The mitral valve is normal. 14. The mitral valve leaflets are mildly thickened. 15. Severe mitral regurgitation is present. 16. The tricuspid valve appears structurally normal. 17. Moderate tricuspid regurgitation present. 18. There is moderate pulmonary hypertension. 19. The right ventricular systolic pressure, as measured by Doppler, is 48.34mmHg. 20. Trace/mild (physiologic) pulmonic regurgitation. 21. The aortic root size is normal. 22. IVC Not well visulized. 23. There is no pericardial effusion. GLASS BEVELLER: Zenyep Grover RDCS
--- NOTE | 2019-12-14 11:19 | P.DS ---
Providers Date of admission: 12/13/19 13:09 Expected date of discharge: 12/14/19 Attending physician: Yaneth Lopez DO Consults: 12/13/19 12:36 Consult Physician Urgent Consulting Provider: [facility] Consult Reason/Comments: Palpitations Do you want consulting provider notified?: Yes Primary care physician: [facility] Course: 64-year-old female with PMH of Marfan's, aortic aneurysm, atrial fibrillation, learning disability, cardiomyopathy, history of frequent falls with subdural hematoma presents to the ED after heavy equipment operator/paver sent her in for complaints of chest pain and generalized weakness. Her guardian who is also her [id number] is at bedside. Patient states that she woke up this morning with chest pain. She describes the pain as pressure-like in nature. Pain was substernal and nonradiating. Also, heavy equipment operator/paver noted that patient had generalized weakness and was unable to stand up from a sitting position. Of note, patient was admitted to [facility] on August after her third fall this year. She was diagnosed with subdural hematoma. Patient denies smoking cigarettes or any alcohol use. She denies any headache, lower extremity edema, nausea or vomiting, fever or chills, cough, shortness of breath, changes in urination or bowel habits. No changes in appetite or weight. She denies any dizziness, numbness/weakness/tingling of the extremities. In the ED, her vital signs were stable. CBC showed chronic lymphopenia. INR was 1. CMP showed BUN of 31 and glucose of 129. Lactic acid was negative. Troponin was less than 0.012, EKG showing atrial fibrillation with ventricular rate of 80. Urinalysis was negative for leukocyte esterase or nitrites. Chest x-ray showed cardiomegaly. Patient is admitted for generalized weakness and chest pain, rule out acute coronary syndrome with cardiology consultation. Patient's troponin was less than 0.0122 with EKG showing atrial fibrillation. Acute coronary syndrome was ruled out. Cardiology was consulted and recommended echocardiogram. Echocardiogram showed EF 40-45% with moderate concentric LVH. Her 8 fibrillation was rate controlled throughout her hospitalization. Her home medication of metoprolol was continued. She was not on any anticoagulation due to her frequent falls. For her history of CHF, her home medication of Lasix, losartan, metoprolol and Aldactone were resumed. Physical therapy was consulted for her generalized weakness. She did have 24-hour supervision at home. She was advised to follow-up with neurosurgery and cardiothoracic surgery with the appointment given to her during her previous admission at [facility]. Patient was seen and examined. No acute events overnight. Patient reports complete resolution of her pressure-like chest pain. She denies any chest pain, shortness breath or palpitations. No nausea or vomiting. No fever or chills. General: [non toxic], [no distress], [appears at stated age], [classic marfanoid features] Derm: [warm], [dry], [lip movements consistent with tardive dyskinesia] Head: [atraumatic], [normocephalic], [symmetric] Eyes: [EOMI], [no lid lag], [anicteric sclera] Mouth: [no lip lesion], [mucus membranes moist] Cardiovascular: [S1S2 irregular], [no murmur], [positive DP pulse bilateral], Lungs: [CTA bilateral], [no rhonchi, no rales] , [no accessory muscle use] Abdominal: [soft], [ nontender to palpation], [no guarding], [no appreciable organomegaly] Ext: [no gross muscle atrophy], [no edema], [no contractures] Neuro: [ CN II-XI grossly intact], [bilateral upper extremities 5 out of 5 strength, bilateral lower extremities 3 out of 5 strength, sensation intact to touch throughout] Psych: [Alert], [oriented], [appropriate affect] Chest pain, rule out acute coronary syndrome Atrial fibrillation Systolic and diastolic CHF, stable Generalized weakness History of subdural hematoma History of aortic aneurysm Patient's troponin has been less than 0.0122 with EKG showing atrial fibrillation. Acute coronary syndrome has been ruled out. Echocardiogram shows EF 45-50% with moderate concentric LVH, no wall motion abnormalities. Cardiology has seen the patient, discussed with EQUINE VET Haile, cleared for discharge. We will discontinue aspirin due to her history of subdural hematoma. Her atrial fibrillation is currently rate controlled. She'll be continued on metoprolol. She follows Dr. Cisneros in the outpatient setting. She is currently not on any anticoagulation due to her frequent falls. She has an echocardiogram from July 2019 that shows EF of 45-50% with grade 2 diastolic dysfunction. Repeat Echo is stable as above. We will continue her home medication of Lasix, losartan, metoprolol and Aldactone. She is currently euvolemic. Her guardian reports patient is at baseline at the time of H&P. She does have 24-hour supervision at home. PT and OT will be consulted. Patient was referred to neurosurgery for follow-up after her discharge from [facility]. She does not present with any focal neurological deficits. She will need to follow-up with neurosurgery at discharge. Patient was referred to cardiothoracic surgery for follow-up after her discharge from [facility]. Appointment is scheduled for guardian for a later date. [Chest pain resolved. Acute coronary syndrome ruled out. Pending PT and OT evaluation. Anticipate DC home today.] Pertinent Studies: Chest x-ray, echocardiogram Patient Condition at Discharge: Stable Plan - Discharge Summary Discharge Rx Participant: No New Discharge Prescriptions: Continue Escitalopram [Lexapro] 15 mg PO DAILY Spironolactone [Aldactone] 25 mg PO BID Potassium Chloride ER [K-Dur 20] 20 meq PO DAILY Ferrous Sulfate [Iron (65 MG Elemental)] 325 mg PO HS Esomeprazole Magnesium [NexIUM] 40 mg PO DAILY Calcium Carbonate/Vitamin D3 [Calcium 600-Vit D3 500 Softgel] 1 cap PO DAILY Furosemide [Lasix] 40 mg PO DAILY Losartan [Cozaar] 25 mg PO DAILY Ketoconazole [Ketoconazole 2%] 1 applic TOPICAL DAILY Multivitamins, Thera [Multivitamin (formulary)] 1 tab PO HS Wheat Dextrin [Benefiber] 2 tsp PO BID Metoprolol Tartrate [Lopressor] 25 mg PO BID Discharge Medication List Calcium Carbonate/Vitamin D3 [Calcium 600-Vit D3 500 Softgel] 1 cap PO DAILY 10/17/18 [History] Escitalopram [Lexapro] 15 mg PO DAILY 10/17/18 [History] Esomeprazole Magnesium [NexIUM] 40 mg PO DAILY 10/17/18 [History] Ferrous Sulfate [Iron (65 MG Elemental)] 325 mg PO HS 10/17/18 [History] Furosemide [Lasix] 40 mg PO DAILY 10/17/18 [History] Potassium Chloride ER [K-Dur 20] 20 meq PO DAILY 10/17/18 [History] Spironolactone [Aldactone] 25 mg PO BID 10/17/18 [History] Ketoconazole [Ketoconazole 2%] 1 applic TOPICAL DAILY 01/10/19 [History] Losartan [Cozaar] 25 mg PO DAILY 01/10/19 [History] Multivitamins, Thera [Multivitamin (formulary)] 1 tab PO HS 07/15/19 [History] Wheat Dextrin [Benefiber] 2 tsp PO BID 07/15/19 [History] Metoprolol Tartrate [Lopressor] 25 mg PO BID 12/13/19 [History] Follow up Appointment(s)/Referral(s): Dominic Cisneros MD [STAFF PHYSICIAN] - 1 Week Grisel Ureña MD [Primary Care Provider] - 1-2 days Activity/Diet/Wound Care/Special Instructions: Diet: Cardiac Follow-up with PCP within 3 days of discharge. Follow-up with cardiology within 1 week of discharge. Take all medications as advised. Follow-up with your neurosurgeon. Follow-up with your cardiothoracic surgeon. These appointments were given to you during her previous admission at [facility]. Come back to the ED for worsening chest pain, shortness of breath, palpitations, dizziness. Discharge Disposition: HOME SELF-CARE
== END 2019-12-14 15:23 | disposition home or self-care (01) | DRG 313 ==
LOC: EC 09:13 → 3SCARD 13:09
PROVIDERS: ADMIT Internal Medicine; ATTEND Internal Medicine
DX: R07.9 Chest pain, unspecified (principal); Q87.40 Marfan syndrome, unspecified; I48.19 Other persistent atrial fibrillation; I42.9 Cardiomyopathy, unspecified; I50.42 Chronic combined systolic (congestive) and diastolic (congestive) heart failure; I11.0 Hypertensive heart disease with heart failure; I71.4 Abdominal aortic aneurysm, without rupture; Z11.59 Encounter for screening for other viral diseases; D72.810 Lymphocytopenia; F79 Unspecified intellectual disabilities; R29.6 Repeated falls; Z79.899 Other long term (current) drug therapy; Z99.3 Dependence on wheelchair; Z86.19 Personal history of other infectious and parasitic diseases; Z91.81 History of falling; Z86.79 Personal history of other diseases of the circulatory system
CPT/HCPCS: 36415; 71046; 80053; 80061; 81001; 83605; 83735; 84484; 85025; 85610; 85730; 93005; 93306; 96360; 96361; 99285

== ENCOUNTER → 2019-12-21 | Outpatient (CLI) | payer MEDICARE, OTHER ==
--- NOTE | 2019-12-21 10:23 | US ---
EXAMINATION TYPE: US venous doppler duplex LE RT DATE OF EXAM: 12/21/2019 10:05 AM COMPARISON: NONE CLINICAL HISTORY: M79.661 Pain in Rt lower limb. R22.41. SIDE PERFORMED: Right TECHNIQUE: The lower extremity deep venous system is examined utilizing real time linear array sonog renae with graded compression, doppler sonography and color-flow sonography. VESSELS IMAGED: External Iliac Vein (EIV) Common Femoral Vein Deep Femoral Vein Greater Saphenous Vein * Femoral Vein Popliteal Vein Small Saphenous Vein * Proximal Calf Veins (* superficial vessels) Right Leg: Negative for DVT Incidental finding: possible [id number] atherosclerotic plaque visualized in the right popliteal ar mary carmen IMPRESSION: 1. No diagnostic evidence of DVT. 2. There appears to be soft plaque and atherosclerotic change involving the popliteal artery correlat e for atherosclerotic changes
== END | disposition home or self-care (01) ==
LOC: RADUSWWP 09:38
PROVIDERS: ATTEND Nurse Practitioner Family
DX: I70.201 Unspecified atherosclerosis of native arteries of extremities, right leg (principal)

== ENCOUNTER 2020-01-07 20:56 | Inpatient (IN) | payer MEDICARE, OTHER ==
[2020-01-07] MEDS ORDERED: cefTRIAXone IN SWFI 1,000 MG/10 ML SYRINGE IVP STA (21:18)
[2020-01-07] MEDS ORDERED: VANCOMYCIN IV PER PHARMACY 1 EACH MISC MISCELLANE PRN (21:19)
--- NOTE | 2020-01-07 21:36 | ED ---
General Adult HPI - General Chief complaint: Extremity Problem,Nontraumatic Stated complaint: Extremity problem Time Seen by Provider: 01/07/20 21:02 Source: patient, EMS, RN notes reviewed, old records reviewed Mode of arrival: EMS Limitations: no limitations - History of Present Illness Initial comments: 64-year-old female brought in for evaluation of a nonhealing wound on the right lower extremity. This initially began as a blister on the medial aspect of the distal right lower extremity above the ankle. This is progressed over the course of one month. The wound was evaluated today and noted to be purulent, more warm and red. The patient is unable to bear weight on this extremity secondary to pain. She is typically a 2 person assist. She has history of Marfan's, A. fib, chronic debility. No reported fever. No vomiting. No chest pain or abdominal pain. No dyspnea. - Related Data Home Medications Medication Instructions Recorded Confirmed Calcium Carbonate/Vitamin D3 1 cap PO DAILY 10/17/18 12/13/19 [Calcium 600-Vit D3 500 Softgel] Escitalopram [Lexapro] 15 mg PO DAILY 10/17/18 12/13/19 Esomeprazole Magnesium [NexIUM] 40 mg PO DAILY 10/17/18 12/13/19 Ferrous Sulfate [Iron (65 MG 325 mg PO HS 10/17/18 12/13/19 Elemental)] Furosemide [Lasix] 40 mg PO DAILY 10/17/18 12/13/19 Potassium Chloride ER [K-Dur 20] 20 meq PO DAILY 10/17/18 12/13/19 Spironolactone [Aldactone] 25 mg PO BID 10/17/18 12/13/19 Ketoconazole [Ketoconazole 2%] 1 applic TOPICAL DAILY 01/10/19 12/13/19 Losartan [Cozaar] 25 mg PO DAILY 01/10/19 12/13/19 Multivitamins, Thera [Multivitamin 1 tab PO HS 07/15/19 12/13/19 (formulary)] Wheat Dextrin [Benefiber] 2 tsp PO BID 07/15/19 12/13/19 Metoprolol Tartrate [Lopressor] 25 mg PO BID 12/13/19 12/13/19 Allergies Allergy/AdvReac Type Severity Reaction Status Date / Time No Known Allergies Allergy Verified 01/07/20 21:03 Review of Systems ROS Statement: Those systems with pertinent positive or pertinent negative responses have been documented in the HPI. ROS Other: All systems not noted in ROS Statement are negative. 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 Date of last positivie culture/infection: 08/31/19 MDRO Source:: VRE URINE Additional Past Surgical History / Comment(s): hip and bilateral knees Past Psychological History: No Psychological Hx Reported Smoking Status: Never smoker Past Alcohol Use History: None Reported Past Drug Use History: None Reported - Past Family History Family Family Medical History: Unable to Obtain General Exam Limitations: no limitations General appearance: alert, in no apparent distress Head exam: Present: atraumatic, normocephalic Eye exam: Present: normal appearance, PERRL ENT exam: Present: normal exam Neck exam: Present: normal inspection. Absent: tenderness, meningismus Respiratory exam: Present: normal lung sounds bilaterally. Absent: respiratory distress, wheezes Cardiovascular Exam: Present: regular rate, irregular rhythm GI/Abdominal exam: Absent: soft, distended, tenderness, guarding, rebound Extremities exam: Present: other (Ulcerating lesion on the medial aspect of the distal right lower extremity with surrounding erythema, there is erythema and swelling into the foot consistent with cellulitis) Course Vital Signs 01/07/20 20:59 Temperature 97.7 F Pulse Rate 90 Respiratory 17 Rate Blood Pressure 123/78 O2 Sat by Pulse 96 Oximetry Medical Decision Making - Medical Decision Making 64-year-old with nonhealing wound on the right lower extremity. There is large ulceration and surrounding cellulitis. Patient afebrile with stable vitals. She has a normal white blood cell count, normal white lites, negative lactic acid she is initiated on IV antibiotics, ceftriaxone and vancomycin. Patient is unable to bear weight and ambulate at her baseline. She will be admitted for treatment of this chronic wound, with surrounding cellulitis. Case discussed with Dr. Kruse - Lab Data Result diagrams: 01/07/20 21:27 Lab Results 01/07/20 Range/Units 21:27 WBC 7.9 (3.8-10.6) k/uL RBC 4.11 (3.80-5.40) m/uL Hgb 13.1 (11.4-16.0) gm/dL Hct 40.3 (34.0-46.0) % MCV 97.9 (80.0-100.0) fL MCH 31.9 (25.0-35.0) pg MCHC 32.6 (31.0-37.0) g/dL RDW 15.1 (11.5-15.5) % Plt Count 135 L (150-450) k/uL Neutrophils % 80 % Lymphocytes % 8 % Monocytes % 8 % Eosinophils % 1 % Basophils % 0 % Neutrophils # 6.4 (1.3-7.7) k/uL Lymphocytes # 0.7 L (1.0-4.8) k/uL Monocytes # 0.6 (0-1.0) k/uL Eosinophils # 0.1 (0-0.7) k/uL Basophils # 0.0 (0-0.2) k/uL Disposition Clinical Impression: Weakness, Non-healing wound, Cellulitis Disposition: ADMITTED IP TO THIS [facility] Condition: Stable Is patient prescribed a controlled substance at d/c from ED?: No Referrals: None,Stated [Primary Care Provider] - 1-2 days Decision to Admit Reason: Admit from EC Decision Date: 01/07/20 Decision Time: 22:29
[2020-01-07] MEDS ORDERED: VANCOMYCIN 1,250 MG in SODIUM CHLORIDE 0.9% 250 ML IVPB ONE (22:00)
[2020-01-07 22:06] LABS: Basophils % (A) 0 %; Eosinophils # (A) 0.1 k/uL (0-0.7); Eosinophils % (A) 1 %; HCT 40.3 % (34.0-46.0); HGB 13.1 gm/dL (11.4-16.0); Lymphocytes # (A) 0.7 k/uL (1.0-4.8); Lymphocytes % (A) 8 %; MCH 31.9 pg (25.0-35.0); MCHC 32.6 g/dL (31.0-37.0); MCV 97.9 fL (80.0-100.0); Monocytes # (A) 0.6 k/uL (0-1.0); Monocytes % (A) 8 %; Neutrophils # (A) 6.4 k/uL (1.3-7.7); Neutrophils % (A) 80 %; Platelet Count 135 k/uL (150-450); RBC 4.11 m/uL (3.80-5.40); RDW 15.1 % (11.5-15.5); WBC 7.9 k/uL (3.8-10.6)
--- NOTE | 2020-01-07 22:07 | XR ---
EXAMINATION TYPE: XR ankle complete RT DATE OF EXAM: 01/07/2020 COMPARISON: NONE HISTORY: Cellulitis. TECHNIQUE: 3 views FINDINGS: There is oblique fracture of the distal fibula. There is minimal callus. This appears to be a healing fracture. Ankle mortise is anatomic. There is soft tissue deformity on the medial aspect o f the lower tibia. IMPRESSION: Healing fracture of the lateral malleolus. Soft tissue deformity. No acute fracture seen.
--- NOTE | 2020-01-07 22:08 | XR ---
EXAMINATION TYPE: XR tibia fibula RT DATE OF EXAM: 01/07/2020 COMPARISON: NONE HISTORY: Cellulitis. Pain. TECHNIQUE: 4 views FINDINGS: There is some soft tissue deformity consistent with ulceration at the medial aspect of the lower tibia. There is a right knee prosthesis. Ankle mortise is anatomic. There is some deformity of the distal fibula consistent with a healing nondisplaced fracture. Right knee prosthesis appears inta ct. IMPRESSION: Healing fracture distal fibula at the lateral malleolus. Soft tissue deformity. No eviden ce of osteomyelitis.
[2020-01-07 22:22] LABS: Albumin 3.8 g/dL (3.5-5.0); Calcium 9.7 mg/dL (8.4-10.2); Potassium 3.7 mmol/L (3.5-5.1)
[2020-01-08] MEDS ORDERED: MORPHINE SULFATE 4 MG/ML SYRINGE IVP PRN (01:52)
[2020-01-08] MEDS ORDERED: ONDANSETRON 4 MG/2 ML VIAL IVP PRN (01:52)
--- NOTE | 2020-01-08 02:31 | P.HPIM ---
History of Present Illness H&P Date: 01/08/20 The patient is a 64-year-old female with a PMH of severe learning disability, Marfan syndrome, systolic and diastolic CHF, A. fib (not on anticoagulation due to recent history of subdural hematoma), abdominal aortic aneurysm, and pancreatic cysts, who was sent in the EMS for a right leg ulcer. The history is provided by the legal guardian (the [id number] [place] Marvin at the bedside). She notes that the patient lives at an apartment with 24-hour staffing (not assisted living or independent living). She notes that roughly one month ago, the patient had developed right ankle swelling with subsequent development of a blister on the medial aspect of the ankle. The blister then turned into an ulcer which gradually increased in size with some drainage. Patient was seen by her PMD and was given a course of Keflex which she recently finished. The patient however had recently been appearing to not being herself as per her staff members and was requiring a lot more assistance with ambulation. There thereby became concerned and sent her into the ED. The patient notes pain at the site of the ulcer, rated at a 4 out of 10, with no clear alleviating or exacerbating features. The patient normally ambulates with a walker though hasn't been requiring a lot more assistance recently. The patient denied any additional complaints. She denied fever or chills. Denied chest pain, shortnes s of breath, or cough. She also denied abdominal pain, nausea, vomiting, or diarrhea. In the ED, right tibial x-ray revealed a healing right distal fibula fracture. Laboratory evaluation revealed a WBC count of 7.9, platelets 135, lactate 1.2, sodium 140, potassium 3.7, BUN 30, and creatinine 0.93. Review of Systems Pertinent positives and negatives as discussed in HPI, a complete review of systems was performed and all other systems are negative. 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 Date of last positivie culture/infection: 08/31/19 MDRO Source:: VRE URINE Additional Past Surgical History / Comment(s): hip and bilateral knees Past Psychological History: No Psychological Hx Reported Smoking Status: Never smoker Past Alcohol Use History: None Reported Past Drug Use History: None Reported - Past Family History Family Family Medical History: Unable to Obtain Medications and Allergies Home Medications Medication Instructions Recorded Confirmed Type Calcium Carbonate/Vitamin D3 1 cap PO DAILY@0700,1900 10/17/18 01/07/20 History [Calcium 600-Vit D3 500 Softgel] Escitalopram [Lexapro] 15 mg PO DAILY@0700 10/17/18 01/07/20 History Esomeprazole Magnesium [NexIUM] 40 mg PO DAILY@0610/17/18 01/07/20 History Ferrous Sulfate [Iron (65 MG 325 mg PO DAILY@189910/17/18 01/07/20 History Elemental)] Furosemide [Lasix] 40 mg PO DAILY@0900 10/17/18 01/07/20 History Potassium Chloride ER [K-Dur 20] 20 meq PO DAILY@0710/17/18 01/07/20 History Spironolactone [Aldactone] 25 mg PO BID@0700,1900 10/17/18 01/07/20 History Ketoconazole [Ketoconazole 2%] 1 applic TOPICAL DAILY@189901/10/19 01/07/20 History Losartan [Cozaar] 25 mg PO DAILY@0700 01/10/19 01/07/20 History Wheat Dextrin [Benefiber] 2 tsp PO BID@0700,1600 07/15/19 01/07/20 History Metoprolol Tartrate [Lopressor] 25 mg PO BID@0700,1900 12/13/19 01/07/20 History Acetaminophen Tab [Tylenol Tab] 500 - 1,000 mg PO DAILY PRN 01/07/20 01/07/20 History Certavite Multivitamin 1 tab PO DAILY@1600 01/07/20 01/07/20 History Docusate [Colace] 100 mg PO DAILY PRN 01/07/20 01/07/20 History Allergies Allergy/AdvReac Type Severity Reaction Status Date / Time No Known Allergies Allergy Verified 01/07/20 22:41 Physical Exam Vitals: Vital Signs Temp Pulse Resp BP Pulse Ox 01/08/20 00:59 97.0 F L 81 18 124/86 96 01/07/20 20:59 97.7 F 90 17 123/78 96 Intake and Output 01/07/20 01/07/2001/07/20 14:59 22:59 06:59 Other: Weight 72.575 kg General: Marfinoid female, non toxic, no distress, appears at stated age, normal weight Derm: R ankle large ulcer with erythematous border and some purulent discharge Head: atraumatic, normocephalic, symmetric Eyes: EOMI, no lid lag, anicteric sclera, pupils equal round reactive to light ENT: Nose and ears atraumatic, no thrush, no pharyngeal erythema Neck: No thyromegaly, no cervical lymphadenopathy, trachea midline, supple Mouth: no lip lesion, mucus membranes moist Cardiovascular: S1S2 reg, no murmur, positive posterior tibial pulse bilateral, no edema, capillary refill less than 2 seconds Lungs: CTA bilateral, no rhonchi, no rales , no accessory muscle use Abdominal: soft, nontender to palpation, no guarding, no appreciable organomegaly, normal bowel sounds Ext: no gross muscle atrophy, muscle strength 4 out of 5 of bilateral upper extremities and 3 out of 5 in bilateral lower extremities, no contractures, Neuro: CN II-XI grossly intact, light touch intact all 4 extremities, finger to nose within normal limits, Psych: Alert, awake, oriented to person and place only, appropriate affect Results CBC & Chem 7: 01/07/20 21:27 01/07/20 21:27 Labs: Abnormal Lab Results - Last 24 Hours (Table) 01/07/20 01/07/20 Range/Units 21:27 21:27 Plt Count 135 L (150-450) k/uL Lymphocytes # 0.7 L (1.0-4.8) k/uL BUN 30 H (7-17) mg/dL Glucose 139 H (74-99) mg/dL Assessment and Plan Plan: Right ankle ulcer -Consult ID -Wound care -C/w Ceftriaxone and Vancomycin for now Prerenal azotemia, possibly secondary to dehydration -Gentle hydration -Monitor BMP Thrombocytopenia, close to baseline -Monitor for now A. fib -Rate controlled -Holding off on anticoagulation due to history of subdural hematoma and multiple falls History of systolic and diastolic CHF, not in acute exacerbation -Hold off on diuretics in light of active infection HTN -Hold off on anti-hypertensives in light of active infection DVT prophylaxis -Heparin subq The patient is admitted with an anticipated less than 2 midnight stay for evaluation of ankle ulcer CODE STATUS: No Code (the guardian at the bedside reports that the patient has previously filled out paperwork outlining that she is to be a no code) Discussed with: Patient, guardian ([id number]( Anticipated discharge date: 1-[address]: Home A total of 35 minutes was spent on the care of this complex patient more than 50% of the time was spent in counseling and care coordination.
[2020-01-08 07:16] LABS: HCT 38.8 % (34.0-46.0); HGB 12.6 gm/dL (11.4-16.0); Hypochromasia Slight; MCH 32.2 pg (25.0-35.0); MCHC 32.4 g/dL (31.0-37.0); MCV 99.4 fL (80.0-100.0); Macrocytosis Slight; Platelet Count 139 k/uL (150-450); RDW 15.1 % (11.5-15.5); WBC 7.8 k/uL (3.8-10.6)
[2020-01-08 07:21] LABS: Calcium 9.6 mg/dL (8.4-10.2); Potassium 3.4 mmol/L (3.5-5.1)
[2020-01-08] MEDS ORDERED: POTASSIUM CHLORIDE ER 20 MEQ TAB.ER PO STA (07:25)
[2020-01-08] MEDS: POTASSIUM CHLORIDE ER 20 MEQ TAB.ER PO SCH (08:22)
[2020-01-08] MEDS: METOPROLOL TARTRATE 25 MG TAB PO SCH ×2 (08:22→21:45)
[2020-01-08] MEDS: ESCITALOPRAM 5 MG TAB PO SCH (08:23)
[2020-01-08] MEDS: HEPARIN SODIUM,PORCINE 5,000 UNIT/ML 1 ML VIAL SQ SCH ×3 (08:23→21:45)
[2020-01-08] MEDS: CALCIUM CARB-VIT D 500MG-200UN 1 EACH TAB PO SCH ×2 (08:23→21:45)
[2020-01-08] MEDS ORDERED: DOCUSATE 100 MG CAP PO PRN (09:00)
--- NOTE | 2020-01-08 10:04 | P.CNOR ---
<Shahla Hanson Serene - Last Filed: 01/08/20 09:59> History of Present Illness - HPI Consult date: 01/08/20 History of present illness: This is a 64-year-old female who is admitted for a wound to the right lower extremity. Orthopedics is consulted due to right ankle fracture. Patient states that she noticed pain in the right ankle starting 01/07/2020, but admits to falling about one week ago. Patient states that she has been struggling to bear weight on the right lower extremity for some time, but is unable to specify the amount of time. The patient states that the wound to the right lower leg has been present for several weeks. Per the medical note, the patient has previously been on outpatient oral antibiotics. Patient's past medical history is significant for Marfans syndrome and atrial fibrillation. Patient denies any fever/chills, numbness, weakness, tingling, abdominal pain, shortness of breath or chest pain. Review of Systems See HPI. 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 Source:: VRE URINE Additional Past Surgical History / Comment(s): hip and bilateral knees Past Psychological History: No Psychological Hx Reported Smoking Status: Never smoker Past Alcohol Use History: None Reported Past Drug Use History: None Reported - Past Family History Family Family Medical History: Unable to Obtain Medications and Allergies Home Medications Medication Instructions Recorded Confirmed Type Calcium Carbonate/Vitamin D3 1 cap PO DAILY@0700,189910/17/18 01/07/20 History [Calcium 600-Vit D3 500 Softgel] Escitalopram [Lexapro] 15 mg PO DAILY@69910/17/18 01/07/20 History Esomeprazole Magnesium [NexIUM] 40 mg PO DAILY@59910/17/18 01/07/20 History Ferrous Sulfate [Iron (65 MG 325 mg PO DAILY@189910/17/18 01/07/20 History Elemental)] Furosemide [Lasix] 40 mg PO DAILY@89910/17/18 01/07/20 History Potassium Chloride ER [K-Dur 20] 20 meq PO DAILY@69910/17/18 01/07/20 History Spironolactone [Aldactone] 25 mg PO BID@0700,1900 10/17/18 01/07/20 History Ketoconazole [Ketoconazole 2%] 1 applic TOPICAL DAILY@19001/10/19 01/07/20 History Losartan [Cozaar] 25 mg PO DAILY@0700 01/10/19 01/07/20 History Wheat Dextrin [Benefiber] 2 tsp PO BID@0700,1600 07/15/19 01/07/20 History Metoprolol Tartrate [Lopressor] 25 mg PO BID@0700,1900 12/13/19 01/07/20 History Acetaminophen Tab [Tylenol Tab] 500 - 1,000 mg PO DAILY PRN 01/07/20 01/07/20 History Certavite Multivitamin 1 tab PO DAILY@1600 01/07/20 01/07/20 History Docusate [Colace] 100 mg PO DAILY PRN 01/07/20 01/07/20 History Allergies Allergy/AdvReac Type Severity Reaction Status Date / Time No Known Allergies Allergy Verified 01/07/20 22:41 Physical Examination On exam patient is resting comfortably in bed in no acute distress. There is tenderness to palpation over the lateral aspect of the right ankle along with ecchymosis and swelling. Patient does have pain with range of motion of the right ankle. Dorsalis pedis pulses are 1+ bilaterally. The right lower extremity is warm and well perfused. There is a wound to the medial aspect of the right lower leg that is draining serosanguineous fluid. Sensation intact to the right lower extremity. Neurovascular status and circulatory status are intact. Results X-rays of the right ankle show a healing fracture of the right distal fibula. Ankle mortise is intact. - Labs Labs: Abnormal Lab Results - Last 24 Hours (Table) 01/07/20 01/07/20 01/08/20 Range/Units 21:27 21:27 06: Plt Count 135 L (150-450) k/uL Lymphocytes # 0.7 L (1.0-4.8) k/uL Potassium 3.4 L (3.5-5.1) mmol/L BUN 30 H 27 H (7-17) mg/dL Glucose 139 H (74-99) mg/dL 01/08/20 Range/Units 06:22 Plt Count 139 L (150-450) k/uL Lymphocytes # (1.0-4.8) k/uL Potassium (3.5-5.1) mmol/L BUN (7-17) mg/dL Glucose (74-99) mg/dL H & H 01/07/20 01/08/20 Range/Units 21:27 06:22 Hgb 13.1 12.6 (11.4-16.0) gm/dL Hct 40.3 38.8 (34.0-46.0) % Result Diagrams: 01/08/20 06:22 01/08/20 06:20 Assessment and Plan (1) Fracture of distal end of right fibula Current Visit: Yes Status: Acute Code(s): S82.831A - OTH FRACTURE OF UPPER AND LOWER END OF RIGHT FIBULA, INIT SNOMED Code(s): 598703879 (2) Non-healing wound Current Visit: Yes Status: Acute Code(s): LDX7866 - SNOMED Code(s): 468834571 (3) Fall Current Visit: No Status: Acute Code(s): W19.XXXA - UNSPECIFIED FALL, INITIAL ENCOUNTER SNOMED Code(s): 9698153 Plan: 1. Patient may be weightbearing as tolerated to the right lower extremity with walking boot. 2. Rest, ice and elevation of the right lower extremity to help with pain and swelling. 3. Continue antibiotics. 4. No surgical intervention planned. Will continue to follow the patient closely. <Alonso Capellan - Last Filed: 01/08/20 16:31> Results - Labs Labs: Abnormal Lab Results - Last 24 Hours (Table) 01/07/20 01/07/20 01/08/20 Range/Units 21:27 21:27 06:20 Plt Count 135 L (150-450) k/uL Lymphocytes # 0.7 L (1.0-4.8) k/uL Potassium 3.4 L (3.5-5.1) mmol/L BUN 30 H 27 H (7-17) mg/dL Glucose 139 H (74-99) mg/dL 01/08/20 Range/Units 06:22 Plt Count 139 L (150-450) k/uL Lymphocytes # (1.0-4.8) k/uL Potassium (3.5-5.1) mmol/L BUN (7-17) mg/dL Glucose (74-99) mg/dL H & H 01/07/20 01/08/20 Range/Units 21:27 06:22 Hgb 13.1 12.6 (11.4-16.0) gm/dL Hct 40.3 38.8 (34.0-46.0) % Result Diagrams: 01/08/20 06:22 01/08/20 06:20 Assessment and Plan Plan: Reviewed and agree with above (amendments/corrections noted below). The patient was subsequently seen and examined by me as well. S: The patient has Marfans with known cognitive delays. No family present at bedside. The patient states she does not recall exactly when or how she injured the ankle but thinks she may have rolled it at one point. She believes she caught the side of her calf on something that caused the wound. Pain is well controlled at this point. O: Only mild bony tenderness at the lateral malleolus. No tenderness medially. Minimal edema. No pain with midrange active dorsiflexion or plantarflexion. Minimal pain and no gross laxity with inversion stress. A: Healing, subacute Egan B right lateral malleolus fracture Right leg wound P: The fracture is essentially nondisplaced and appears to be healing well. I expect that it is at least 2-3 weeks old. She may weight-bear as tolerated with the boot. Recommend that it be left off when at rest or in bed to avoid pressure on the healing wound. Recommend eval by wound care team regarding the leg wound. Follow-up outpatient in 2 weeks for reevaluation with repeat x-rays. Thank you for allowing me to participate in the care of this patient. Alonso Capellan D.O. [facility]
[2020-01-08] MEDS: VANCOMYCIN 1,000 MG in SODIUM CHLORIDE 0.9% 250 ML IVPB SCH ×2 (10:22→23:16)
[2020-01-08 13:09] VITALS: BMI 21.7
--- NOTE | 2020-01-08 18:11 | P.PN ---
Progress Note - Text Progress Note Date: 01/08/20 (delayed charting seen at 1100) Hospitalist Interval Note Patient seen and examined at bedside. Gualberto pain, nausea, chest pain, or diarrhea. Admits to alot of recent falls and believes that she did tear her skin in a recent fall. Vital signs reviewed General: non toxic, no distress, appears at stated age Cardiovascular: S1S2 reg, no murmur, positive posterior tibial pulse bilateral, Lungs: CTA bilateral, no rhonchi, no rales , no accessory muscle use Ext: no gross muscle atrophy, no edema, no contractures, large open wound right medical calf with deep red tissue bed, no odor no drainage, Neuro: CN II-XI grossly intact, no focal neuro deficits Psych: Alert, oriented, appropriate affect Assessment/Plan: 1. Right lower extremity wound -Does not appear infected, but does appear to be a avulsion possible y relate to recent fall, continue with antibiotics, consult wound care [employer] 2. Right Ankle Fracture- ortho consulted and will be placed in boot, per discussion with Shahla GÓMEZ will need ABX on discharge as this will be considered an open fracture This is an update note for patient , for full note on see . There is no charge associated with this note.
--- NOTE | 2020-01-08 22:50 | P.CONS ---
History of Present Illness - Reason for Consult Consult date: 01/08/20 Right leg wound cellulitis antibiotic recommendation Requesting physician: Yaneth Lopez - Chief Complaint Nonhealing wound to the right leg with no pain and redness x 1 day - History of Present Illness Patient is a 64-year-old female with a past medical history significant for Marfan syndrome atrial fibrillation and chronic debility this patient who did have a chronic nonhealing wound to the right medial lower leg just above the ankle that has been there for almost a month now patient mentioned he started as a blister that has gradually increased in size open up leading to formation of these concerns has been taken care by the home care nurse, apparently the patient was noticed to have a increasing swelling redness and some purulence to the wound with the patient was advised to go to the hospital on arrival to the other patient has been afebrile, patient had did have a normal white count patient did have x-ray of the ankle tibia and fibula which did mention healing fracture to the lateral malleolus no mention of any abnormality of the right medial lower leg area, patient has been started on Rocephin and vancomycin and admitted to the hospital infectious disease was consulted for further management of antibiotic therapy. 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 Source:: VRE URINE Additional Past Surgical History / Comment(s): hip and bilateral knees Past Psychological History: No Psychological Hx Reported Smoking Status: Never smoker Past Alcohol Use History: None Reported Past Drug Use History: None Reported - Past Family History Family Family Medical History: Unable to Obtain Medications and Allergies Home Medications Medication Instructions Recorded Confirmed Type Calcium Carbonate/Vitamin D3 1 cap PO DAILY@0700,1900 10/17/18 01/07/20 History [Calcium 600-Vit D3 500 Softgel] Escitalopram [Lexapro] 15 mg PO DAILY@0700 10/17/18 01/07/20 History Esomeprazole Magnesium [NexIUM] 40 mg PO DAILY@59910/17/18 01/07/20 History Ferrous Sulfate [Iron (65 MG 325 mg PO DAILY@189910/17/18 01/07/20 History Elemental)] Furosemide [Lasix] 40 mg PO DAILY@0900 10/17/18 01/07/20 History Potassium Chloride ER [K-Dur 20] 20 meq PO DAILY@0710/17/18 01/07/20 History Spironolactone [Aldactone] 25 mg PO BID@0700,1900 10/17/18 01/07/20 History Ketoconazole [Ketoconazole 2%] 1 applic TOPICAL DAILY@189901/10/19 01/07/20 History Losartan [Cozaar] 25 mg PO DAILY@0701/10/19 01/07/20 History Wheat Dextrin [Benefiber] 2 tsp PO BID@0700,1600 07/15/19 01/07/20 History Metoprolol Tartrate [Lopressor] 25 mg PO BID@0700,189912/13/19 01/07/20 History Acetaminophen Tab [Tylenol Tab] 500 - 1,000 mg PO DAILY PRN 01/07/20 01/07/20 History Certavite Multivitamin 1 tab PO DAILY@1600 01/07/20 01/07/20 History Docusate [Colace] 100 mg PO DAILY PRN 01/07/20 01/07/20 History Allergies Allergy/AdvReac Type Severity Reaction Status Date / Time No Known Allergies Allergy Verified 01/07/20 22:41 Physical Exam Vitals: Vital Signs Temp Pulse Pulse Resp BP BP Pulse Ox 01/08/20 20:37 98.0 F 83 18 130/82 93 L 01/08/20 20:00 98.0 F 93 18 130/82 93 L 01/08/20 14:00 98.4 F 78 16 111/62 93 L 01/08/20 08:22 97.7 F 82 18 121/79 93 L 01/08/20 03:22 78 20 01/08/20 03:16 123/74 01/08/20 02:50 97.5 F L 78 20 96 01/08/20 00:59 97.0 F L 81 18 124/86 96 Intake and Output 01/08/20 01/08/20 01/08/20 06:59 14:59 22:59 Intake Total 400 Balance 400 Intake: Intake, IV Titration 300 Amount Vancomycin 1,000 mg In 250 Sodium Chloride 0.9% 250 ml @ 125 mls/hr IVPB Q12H LEELA Rx#:[id number] cefTRIAXone 1 gm In 50 Sodium Chloride 0.9% 50 ml @ 100 mls/hr IVPB Q12HR LEELA Rx#:[id number] Oral 100 Other: Voiding Method Diaper Diaper # Voids 2 1 Weight 72.575 kg 72.575 kg GENERAL DESCRIPTION: An elderly female lying in bed, no distress. No tachypnea or accessory muscle of respiration use. HEENT: Shows Pallor , no scleral icterus. Oral mucous membrane is dry. No pharyngeal erythema or thrush NECK: Trachea central, no thyromegaly. LUNGS: Unlabored breathing. Clear to auscultation anteriorly. No wheeze or crackle. HEART: S1, S2, regular rate and rhythm. No loud murmur ABDOMEN: Soft, no tenderness , guarding or rigidity, no organomegaly EXTREMITIES: No edema of feet. Right medial lower leg did want with some undermining no significant slough tissue minimal surrounding redness no foul- smelling drainage SKIN: No rash, no masses palpable. NEUROLOGICAL: The patient is awake, alert, oriented x3, mood and affect normal. Results CBC & Chem 7: 01/08/20 06:22 01/08/20 06:20 Labs: Abnormal Lab Results - Last 24 Hours (Table) 01/08/20 01/08/20 Range/Units 06:20 06:22 Plt Count 139 L (150-450) k/uL Potassium 3.4 L (3.5-5.1) mmol/L BUN 27 H (7-17) mg/dL Microbiology - Last 24 Hours (Table) 01/08/20 19:00 Wound Culture - Preliminary Leg - Right Assessment and Plan Assessment: 1-patient with chronic nonhealing wound to the right lower medial leg area with no history of any trauma started as a blister been brought to the hospital with increasing pain redness and some purulent drainage in this patient currently with no fever or elevated white count possible cellulitis and likely from gram- positive skin gerhard (1) Wound of right lower extremity Current Visit: Yes Status: Acute Code(s): S81.801A - UNSPECIFIED OPEN WOUND, RIGHT LOWER LEG, INITIAL ENCOUNTER SNOMED Code(s): 767180417 (2) Cellulitis of right leg Current Visit: Yes Status: Acute Code(s): L03.115 - CELLULITIS OF RIGHT LOWER LIMB SNOMED Code(s): 354833044 Plan: 1- local wound culture has been obtained to guide antibiotic therapy 2-Vancomycin pharmacy to dose target trough of 15 while watching his kidney function and Vanco trough closely and Rocephin to continue 3-local wound care with dry Aquacel silver dressing followed by Yong wrap to be changed daily We will follow on clinical condition and cultures to further adjust medication if needed Thank you for this consultation will follow this patient with you Time with Patient: Greater than 30
[2020-01-09] MEDS: POTASSIUM CHLORIDE ER 20 MEQ TAB.ER PO SCH (08:40)
[2020-01-09] MEDS: ESCITALOPRAM 5 MG TAB PO SCH (08:40)
[2020-01-09] MEDS: HEPARIN SODIUM,PORCINE 5,000 UNIT/ML 1 ML VIAL SQ SCH ×2 (08:40→16:02)
[2020-01-09] MEDS: METOPROLOL TARTRATE 25 MG TAB PO SCH ×2 (08:40→21:59)
[2020-01-09] MEDS: CALCIUM CARB-VIT D 500MG-200UN 1 EACH TAB PO SCH ×2 (08:40→21:59)
[2020-01-09] MEDS ORDERED: VANCOMYCIN TROUGH DUE 1 EACH MISC MISCELLANE ONE (09:00)
[2020-01-09] MEDS: VANCOMYCIN 1,000 MG in SODIUM CHLORIDE 0.9% 250 ML IVPB SCH ×2 (10:23→22:36)
[2020-01-09 11:05] LABS: Calcium 9.7 mg/dL (8.4-10.2); Potassium 3.8 mmol/L (3.5-5.1)
--- NOTE | 2020-01-09 11:47 | P.DS ---
Providers Date of admission: 01/08/20 01:53 Expected date of discharge: 01/09/20 Attending physician: Jerrell Kruse MD Consults: 01/08/20 02:27 Consult Physician Urgent Consulting Provider: Lukas Ness Consult Reason/Comments: Ankle ulcer Do you want consulting provider notified?: Yes 01/08/20 07:23 Consult Physician Routine Consulting Provider: Rubens Ibanez Consult Reason/Comments: Left ankle Fx in [place] now unable to bear weight Do you want consulting provider notified?: Yes [facility] Course: The patient is a 64-year-old female with a PMH of severe learning disability, Marfan syndrome, systolic and diastolic CHF, A. fib (not on anticoagulation due to recent history of subdural hematoma), abdominal aortic aneurysm, and pancreatic cysts, who was sent in the EMS for a right leg ulcer. The history is provided by the legal guardian (the [id number] [place] Marvin at the bedside). She notes that the patient lives at an apartment with 24-hour staffing (not assisted living or independent living). She notes that roughly one month ago, the patient had developed right ankle swelling with subsequent development of a blister on the medial aspect of the ankle. The blister then turned into an ulcer which gradually increased in size with some drainage. Patient was seen by her PMD and was given a course of Keflex which she recently finished. The patient however had recently been appearing to not being herself as per her staff members and was requiring a lot more assistance with ambulation. There thereby became concerned and sent her into the ED. The patient notes pain at the site of the ulcer, rated at a 4 out of 10, with no clear alleviating or exacerbating features. The patient normally ambulates with a walker though hasn't been requiring a lot more assistance recently. The patient denied any additional complaints. She denied fever or chills. Denied chest pain, shortness of breath, or cough. She also denied abdominal pain, nausea, vomiting, or diarrhea. In the ED, right tibial x-ray revealed a healing right distal fibula fracture. Laboratory evaluation revealed a WBC count of 7.9, platelets 135, lactate 1.2, sodium 140, potassium 3.7, BUN 30, and creatinine 0.93. Orthopedic surgery was consulted for right ankle fracture. Orthopedic surgery recommended that this fracture is essentially nondisplaced and appears to be healing well, at least 2-3 weeks old, advised weightbearing as tolerated with boot. She was initially started on vancomycin and Rocephin for concerns of osteomyelitis. Osteomyelitis was not noted on x-ray. Infectious disease was consulted and recommended wound culture. Wound culture was preliminarily negative at 24 hours at the time of discharge. Patient was seen and examined. No acute events overnight. Patient reports no complaints. She denies any chest pain, shortness of breath or palpitations. No nausea or vomiting. No fever or chills. Patient states that she has not been able to ambulate since admission. Boot was delivered yesterday. General: [non toxic], [no distress], [appears at stated age] Derm: [warm], [dry] Head: [atraumatic], [normocephalic], [symmetric] Eyes: [EOMI], [no lid lag], [anicteric sclera] Mouth: [no lip lesion], [mucus membranes moist] Cardiovascular: [S1S2 reg], [no murmur], [positive DP pulse bilateral], Lungs: [CTA bilateral], [no rhonchi, no rales] , [no accessory muscle use] Abdominal: [soft], [ nontender to palpation], [no guarding], [no appreciable organomegaly] Ext: [no gross muscle atrophy], [no edema], [no contractures], [open wound right medial calf no drainage or erythema] Neuro: [no focal neuro deficits] Psych: [Alert], [oriented], [appropriate affect] Right ankle ulcer with right ankle fracture -Wound culture prelim negative at 24 hours, x-ray shows no concerns of osteomyelitis, patient to complete 9 more days of Keflex. -Orthopedic surgery recommendations appreciated, follow-up in 2 weeks, boot at bedside, weightbearing as tolerated -Wound care -PT and OT consult Prerenal azotemia, possibly secondary to dehydration -Gentle hydration -Monitor BMP Thrombocytopenia, close to baseline -Monitor for now A. fib -Rate controlled -Holding off on anticoagulation due to history of subdural hematoma and multiple falls History of systolic and diastolic CHF, not in acute exacerbation -Hold off on diuretics in light of active infection HTN -Hold off on anti-hypertensives in light of active infection Resolved: Hypokalemia [Patient admitted for chronic right ankle ulcer with fracture. Fracture appears to be chronic, boot at bedside, patient to work with PT and rolling walker. Wound culture prelim negative, to complete 9 more days of Keflex. Anticipate DC home today if cleared by PT. This complex discharge took about 35 minutes to complete.] Pertinent Studies: Ankle x-ray, tibia and fibula x-ray Patient Condition at Discharge: Stable Plan - Discharge Summary Discharge Rx Participant: Yes New Discharge Prescriptions: New Cephalexin [Keflex] 500 mg PO Q8HR 9 Days #27 cap Continue Escitalopram [Lexapro] 15 mg PO DAILY@0700 Spironolactone [Aldactone] 25 mg PO BID@0700,1900 Potassium Chloride ER [K-Dur 20] 20 meq PO DAILY@0700 Ferrous Sulfate [Iron (65 MG Elemental)] 325 mg PO DAILY@1900 Esomeprazole Magnesium [NexIUM] 40 mg PO DAILY@0600 Calcium Carbonate/Vitamin D3 [Calcium 600-Vit D3 500 Softgel] 1 cap PO DAILY@0700,1900 Furosemide [Lasix] 40 mg PO DAILY@0900 Losartan [Cozaar] 25 mg PO DAILY@0700 Ketoconazole [Ketoconazole 2%] 1 applic TOPICAL DAILY@1900 Wheat Dextrin [Benefiber] 2 tsp PO BID@0700,1600 Metoprolol Tartrate [Lopressor] 25 mg PO BID@0700,1900 Acetaminophen Tab [Tylenol] 500 - 1,000 mg PO DAILY PRN PRN Reason: Pain Docusate [Colace] 100 mg PO DAILY PRN PRN Reason: Constipation Certavite Multivitamin 1 tab PO DAILY@1600 Discharge Medication List Calcium Carbonate/Vitamin D3 [Calcium 600-Vit D3 500 Softgel] 1 cap PO DAILY@0700,1900 10/17/18 [History] Escitalopram [Lexapro] 15 mg PO DAILY@0700 10/17/18 [History] Esomeprazole Magnesium [NexIUM] 40 mg PO DAILY@0600 10/17/18 [History] Ferrous Sulfate [Iron (65 MG Elemental)] 325 mg PO DAILY@1900 10/17/18 [History] Furosemide [Lasix] 40 mg PO DAILY@0900 10/17/18 [History] Potassium Chloride ER [K-Dur 20] 20 meq PO DAILY@0700 10/17/18 [History] Spironolactone [Aldactone] 25 mg PO BID@0700,1900 10/17/18 [History] Ketoconazole [Ketoconazole 2%] 1 applic TOPICAL DAILY@189901/10/19 [History] Losartan [Cozaar] 25 mg PO DAILY@0701/10/19 [History] Wheat Dextrin [Benefiber] 2 tsp PO BID@0700,1600 07/15/19 [History] Metoprolol Tartrate [Lopressor] 25 mg PO BID@0700,19012/13/19 [History] Acetaminophen Tab [Tylenol] 500 - 1,000 mg PO DAILY PRN 01/07/20 [History] Certavite Multivitamin 1 tab PO DAILY@159901/07/20 [History] Docusate [Colace] 100 mg PO DAILY PRN 01/07/20 [History] Cephalexin [Keflex] 500 mg PO Q8HR 9 Days #27 cap 01/09/20 [Rx] Follow up Appointment(s)/Referral(s): None,Stated [REFERRING] - 1-2 days Terrell Paige [NON-STAFF] - (Call with any questions regarding equalizer boot. ) Alonso Capellan DO [Medical Doctor] - 2 Weeks Activity/Diet/Wound Care/Special Instructions: Diet: Heart healthy Follow-up PCP within 3 days of discharge. Follow-up with orthopedic surgery within 2 weeks of discharge. Take all medications as advised. Discharge Disposition: HOME SELF-CARE
--- NOTE | 2020-01-09 12:07 | P.PN ---
Subjective Progress Note Date: 01/09/20 This is a 64-year-old female who is admitted for a wound in the right lower extremity. Orthopedics is following due to right ankle fracture. Patient complains of bruising and pain to the right thigh today. Patient states that when she tries to bear weight on the right lower extremity she has pain in the right ankle. Patient denies any pain in the right side groin. Patient denies any fever/chills, numbness, weakness, tingling, abdominal pain, shortness of breath or chest pain. Objective - Vital Signs Vital signs: Vital Signs Temp 98 F 01/09/20 07:00 Pulse 94 01/09/20 07:00 Resp 16 01/09/20 08:30 BP 129/86 01/09/20 07:00 Pulse Ox 91 L 01/09/20 07:00 Intake & Output 01/08/20 01/09/20 01/09/20 18:59 06:59 18:59 Intake Total 200 100 Output Total 100 Balance 100 100 Weight 72.575 kg Intake: Oral 200 100 Output: Urine 100 Other: Voiding Method Diaper Bedpan Bedpan Diaper Diaper # Voids 1 3 1 - Exam On exam patient is sitting up comfortably in bed in no acute distress. Patient is alert and oriented 3. There is tenderness to palpation along with mild ecchymosis over the mid right thigh. There is some tenderness to palpation over the right greater trochanter. Patient has no pain with log roll of the right lower extremity and patient has full active range of motion of the right lower extremity without pain or difficulty. There is mild swelling and tenderness to palpation over the lateral aspect of the right ankle. Skin is intact. Sensation intact. Calf is soft and nontender to palpation. The right lower extremity is warm and well-perfused. Neurovascular status and circulatory status are intact. - Labs CBC & Chem 7: 01/08/20 06:22 01/09/20 09:08 Labs: Abnormal Lab Results - Last 24 Hours (Table) 01/09/20 Range/Units 09:08 BUN 29 H (7-17) mg/dL Glucose 131 H (74-99) mg/dL Microbiology - Last 24 Hours (Table) 01/08/20 19:00 Gram Stain - Preliminary Leg - Right Wound Culture - Preliminary 01/07/20 21:27 Blood Culture - Preliminary Blood No Growth after 24 hours Assessment and Plan (1) Fracture of distal end of right fibula Current Visit: Yes Status: Acute Code(s): S82.831A - OTH FRACTURE OF UPPER AND LOWER END OF RIGHT FIBULA, INIT SNOMED Code(s): 725764019 (2) Non-healing wound Current Visit: Yes Status: Acute Code(s): TVZ4837 - SNOMED Code(s): 49540 2002 (3) Fall Current Visit: No Status: Acute Code(s): W19.XXXA - UNSPECIFIED FALL, INITIAL ENCOUNTER SNOMED Code(s): 5518407 Plan: 1. Patient may be weightbearing as tolerated to the right lower extremity with walking boot. 2. Rest, ice and elevation of the right lower extremity to help with pain and swelling. 3. Continue antibiotics. 4. X-rays of the right femur pending. 5. No surgical intervention planned. Patient may follow up as an outpatient regarding the right ankle. Okay for discharge from an orthopedic standpoint if x-rays of the right femur are negative.
--- NOTE | 2020-01-09 12:21 | XR ---
EXAMINATION TYPE: XR femur RT DATE OF EXAM: 01/09/2020 COMPARISON: NONE HISTORY: Pain TECHNIQUE: 4 views submitted FINDINGS: Diffuse osteopenia. There is postsurgical change in involving the pelvis, right hip and rig ht femur. Overlying soft tissue artifact limits assessment for subtle fracture. Lucency overlying the right inferior pubic ramus likely is artifact. It is not seen with certainty on the oblique image. C orrelate clinically with point tenderness. Vascular calcifications are seen. Hypertrophic spurring al serene the greater trochanter noted. IMPRESSION: Postoperative changes
--- NOTE | 2020-01-09 13:34 | P.CONS ---
History of Present Illness - Reason for Consult Consult date: 01/09/20 wound care - History of Present Illness This is a 64-year-old patient being seen on 4 S. for nonhealing ulceration to the medial aspect of the right lower extremity. Patient does not know how the ulceration started in unsure of how long it has been present. Previously the patient had a fall resulting in a fracture. She most recently had another fall refracturing the right lower extremity. Patient states that the ulceration does not bother her she does not have any pain or discomfort to the site. Patient's past medical history significant for atrial fibrillation, Marfan syndrome, intellectual disability Review of Systems Review Of Systems: Constitutional: No fever, no chills, no night sweats. No weight change. No weakness, fatigue or lethargy. No daytime sleepiness. Integumentary:reports wounds, no lesions. No rash or pruritus. No unusual bruising. No change in hair or nails. 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 Source:: VRE URINE Additional Past Surgical History / Comment(s): hip and bilateral knees Past Psychological History: No Psychological Hx Reported Smoking Status: Never smoker Past Alcohol Use History: None Reported Past Drug Use History: None Reported - Past Family History Family Family Medical History: Unable to Obtain Medications and Allergies Home Medications Medication Instructions Recorded Confirmed Type Calcium Carbonate/Vitamin D3 1 cap PO DAILY@0700,1900 10/17/18 01/07/20 History [Calcium 600-Vit D3 500 Softgel] Escitalopram [Lexapro] 15 mg PO DAILY@69910/17/18 01/07/20 History Esomeprazole Magnesium [NexIUM] 40 mg PO DAILY@59910/17/18 01/07/20 History Ferrous Sulfate [Iron (65 MG 325 mg PO DAILY@189910/17/18 01/07/20 History Elemental)] Furosemide [Lasix] 40 mg PO DAILY@0900 10/17/18 01/07/20 History Potassium Chloride ER [K-Dur 20] 20 meq PO DAILY@0710/17/18 01/07/20 History Spironolactone [Aldactone] 25 mg PO BID@0700,1900 10/17/18 01/07/20 History Ketoconazole [Ketoconazole 2%] 1 applic TOPICAL DAILY@1900 01/10/19 01/07/20 History Losartan [Cozaar] 25 mg PO DAILY@0700 01/10/19 01/07/20 History Wheat Dextrin [Benefiber] 2 tsp PO BID@0700,1600 07/15/19 01/07/20 History Metoprolol Tartrate [Lopressor] 25 mg PO BID@0700,1900 12/13/19 01/07/20 History Acetaminophen Tab [Tylenol] 500 - 1,000 mg PO DAILY PRN 01/07/20 01/07/20 History Certavite Multivitamin 1 tab PO DAILY@1600 01/07/20 01/07/20 History Docusate [Colace] 100 mg PO DAILY PRN 01/07/20 01/07/20 History Cephalexin [Keflex] 500 mg PO Q8HR 9 Days #27 cap 01/09/20 Rx Allergies Allergy/AdvReac Type Severity Reaction Status Date / Time No Known Allergies Allergy Verified 01/07/20 22:41 Physical Exam Vitals: Vital Signs Temp Pulse Resp BP Pulse Ox 01/09/20 08:30 16 01/09/20 07:00 98 F 94 16 129/86 91 L 01/09/20 01:00 97.8 F 86 20 133/83 93 L 01/08/20 20:37 98.0 F 83 18 130/82 93 L 01/08/20 20:00 98.0 F 93 18 130/82 93 L 01/08/20 14:00 98.4 F 78 16 111/62 93 L Intake and Output 01/08/20 01/09/20 01/09/20 22:59 06:59 14:59 Intake Total 200 100 Output Total 100 Balance 200 -100 100 Intake: Oral 200 100 Output: Urine 100 Other: Voiding Method Diaper Bedpan Bedpan Diaper Diaper # Voids 2 3 1 Physical exam: General Appearance: Alert, cooperative, no distress, appears stated age. Skin: Right lower extremity medial aspect nonhealing ulceration with fatty layer exposure, minimal granulation seen within wound bed, moderate amount of slough noted, wound edge not attached to wound bed. Measuring approximately 8 x 4 x 0.1 cm. Periwound shows dry scaliness. all other Skin color, texture, tugor normal, no rashes or lesions. Neurologic: Alert oriented x3 Results CBC & Chem 7: 01/08/20 06:22 01/09/20 09:08 Labs: Abnormal Lab Results - Last 24 Hours (Table) 01/09/20 Range/Units 09:08 BUN 29 H (7-17) mg/dL Glucose 131 H (74-99) mg/dL Microbiology - Last 24 Hours (Table) 01/08/20 19:00 Gram Stain - Preliminary Leg - Right Wound Culture - Preliminary 01/07/20 21:27 Blood Culture - Preliminary Blood No Growth after 24 hours Assessment and Plan (1) Nonhealing ulcer of right lower extremity with fat layer exposed Current Visit: Yes Status: Acute Code(s): L97.912 - NON-PRS CHR UL UNSP PRT OF R LOW LEG W FAT LAYER EXPOSED SNOMED Code(s): 12520231 Plan: Patient would benefit from outpatient wound care and debridement. At this time apply honey alginate, saline moistened gauze, dry gauze, rolled gauze and secure with paper tape. Change Thursday. Thank you kindly for the consultation any questions please contact the wound care center DNP note has been reviewed and discussed with Dr. Thomas and the impression and plan of care has been directed as dictated.
--- NOTE | 2020-01-09 15:08 | CT ---
EXAMINATION TYPE: CT pelvis wo con DATE OF EXAM: 01/09/2020 COMPARISON: CT from outside institution 09/01/2019 HISTORY: Right femur pain. CT DLP: 643 mGycm Automated exposure control for dose reduction was used. Helical acquisition through the pelvis withou t contrast FINDINGS: Infrarenal abdominal aortic aneurysm is present as noted on prior exam. Bilateral hip prostheses are present causing streak artifact which may limit the evaluation. Increased attenuation within the subc utaneous fat may represent some changes of anasarca or ecchymosis. Lipoma is present in the gluteal m usculature on the right. Lucent lesion with sclerotic margin within the L4 vertebral body the left mi dline is stable. There is motion on the exam. No evident pneumoperitoneum. IMPRESSION: NONCONTRAST EXAM. LIMITATIONS DESCRIBED. ABDOMINAL AORTIC ANEURYSM.
--- NOTE | 2020-01-09 18:36 | PN ---
PROGRESS NOTE DATE OF SERVICE: 01/09/2020 REASON FOR FOLLOWUP: Right medial ankle wound and a question of cellulitis. INTERVAL HISTORY: The patient is currently afebrile. The patient is breathing comfortably. Denies having any chest pain, shortness of breath or cough. No nausea or vomiting. No abdominal pain or pain to the right leg area. PHYSICAL EXAMINATION: Blood pressure 122/64 with a pulse of 88, temperature 97.9. She is 92% on room air. General description is an elderly female lying in bed in no distress. RESPIRATORY SYSTEM: Unlabored breathing. Clear to auscultation anteriorly. HEART: S1, S2. Regular rate and rhythm. ABDOMEN: Soft. No tenderness. Right leg wound is currently dressed up. No obvious drainage on the dressing. LABS: Creatinine 0.83. Wound culture currently pending. DIAGNOSTIC IMPRESSION AND PLAN: Patient with a right lower extremity wound with secondary cellulitis. To continue the vancomycin and Rocephin while waiting for the culture to finalize. Local wound care with a dry Aquacel Silver dressing. Continue with supportive care. MMODL / IJN: [id number] /
[2020-01-10 01:16] LABS: Appearance,Urine Cloudy (Clear); Bacteria,Urine Few /hpf; Bilirubin,Urine Negative (Negative); Blood,Urine Negative (Negative); Color,Urine Yellow; Glucose,Urine (UA) Negative (Negative); Ketones,Urine Negative (Negative); Leukocyte Esterase,Urine Small (Negative); Mucus,Urine Rare /hpf; Nitrite,Urine Negative (Negative); Protein,Urine 1+ (Negative); RBC,Urine 1 /hpf (0-5); Specific Gravity,Urine 1.021 (1.001-1.035); Squamous Epithelial Cell,Urine 4 /hpf (0-4); Urobilinogen,Urine <2.0 mg/dL (<2.0); WBC,Urine 14 /hpf (0-5)
[2020-01-10 07:32] LABS: African American GFR (CKD) >90 (>60 ml/min/1.73 sqM); Non-African American GFR(CKD) 85 (>60 ml/min/1.73 sqM)
[2020-01-10] MEDS: CALCIUM CARB-VIT D 500MG-200UN 1 EACH TAB PO SCH ×2 (07:37→19:28)
[2020-01-10] MEDS: ESCITALOPRAM 5 MG TAB PO SCH (07:37)
[2020-01-10] MEDS: POTASSIUM CHLORIDE ER 20 MEQ TAB.ER PO SCH (07:37)
[2020-01-10] MEDS: METOPROLOL TARTRATE 25 MG TAB PO SCH ×2 (07:37→19:28)
[2020-01-10] MEDS: VANCOMYCIN 1,000 MG in SODIUM CHLORIDE 0.9% 250 ML IVPB SCH ×2 (09:50→21:42)
--- NOTE | 2020-01-10 14:12 | PN ---
PROGRESS NOTE DATE OF SERVICE: 01/10/2020 REASON FOR FOLLOW UP: Right middle leg wound and cellulitis. INTERVAL HISTORY: The patient is currently afebrile. The patient is breathing comfortably. The patient denies having any chest pain. No shortness of breath or cough. Overall pain and discomfort to right leg had decreased. On examination, blood pressure 154/90 with a pulse of 140. Temperature 98. She is 94% on 3 L nasal cannula. General description is an elderly female lying in bed in no distress. Respiratory system: Unlabored breathing. Clear to auscultation anteriorly. Heart S1, S2. Regular rate and rhythm. Abdomen soft, no tenderness. Right leg is currently dressed up. No obvious drainage on the dressing. LABS: Wound culture now showing presumptive MRSA. DIAGNOSTIC IMPRESSION AND PLAN: Patient with right medial leg wound infection with secondary cellulitis. The patient is covered with vancomycin to continue. Waiting for sensitivity to determine her discharge antibiotics. Discontinue Rocephin. Local care to continue with dry Aquacel dressing. MMODL / IJN: [id number] /
--- NOTE | 2020-01-10 16:01 | P.PN ---
Subjective Progress Note Date: 01/10/20 Principal diagnosis: Right ankle fracture, wound Patient was seen and examined. No acute events overnight. Patient has no complaints today. She denies any chest pain, shortness of breath or palpitations. No nausea or vomiting. No fever or chills. She is awaiting insurance authorization for rehab. Found to be tachycardic to 120s this morning which improved with morning medication metoprolol. Also found to have increased work of breathing requiring 3 L nasal cannula. Objective - Vital Signs Vital signs: Vital Signs Temp 98.3 F 01/10/20 14:53 Pulse 92 01/10/20 14:53 Resp 16 01/10/20 14:53 BP 116/67 01/10/20 14:53 Pulse Ox 92 L 01/10/20 14:53 Intake & Output 01/09/20 01/10/20 01/10/20 18:59 06:59 18:59 Intake Total 700 Balance 700 Intake: Oral 700 Other: Voiding Method Bedpan Bedpan Bedpan Diaper Diaper Diaper Incontinent Incontinent # Voids 2 3 1 # Bowel Movements 1 - Exam General: [non toxic], [no distress], [appears at stated age] Derm: [warm], [dry] Head: [atraumatic], [normocephalic], [symmetric] Eyes: [EOMI], [no lid lag], [anicteric sclera] Mouth: [no lip lesion], [mucus membranes moist] Cardiovascular: [S1S2 irregular], [no murmur], [positive DP pulse bilateral], Lungs: [CTA bilateral], [no rhonchi, no rales] , [no accessory muscle use] Abdominal: [soft], [ nontender to palpation], [no guarding], [no appreciable organomegaly] Ext: [no gross muscle atrophy], [no edema], [no contractures], [open wound right medial calf no drainage or erythema] Neuro: [no focal neuro deficits] Psych: [Alert], [oriented], [appropriate affect] - Labs CBC & Chem 7: 01/08/20 06:22 01/10/20 06:49 Labs: Abnormal Lab Results - Last 24 Hours (Table) 01/10/20 Range/Units 00:50 Urine Appearance Cloudy H (Clear) Urine Protein 1+ H (Negative) Ur Leukocyte Esterase Small H (Negative) Urine WBC 14 H (0-5) /hpf Urine Bacteria Few H (None) /hpf Urine Mucus Rare H (None) /hpf Microbiology - Last 24 Hours (Table) 01/10/20 00:50 Urine Culture - Preliminary Urine,Voided 01/07/20 21:27 Blood Culture - Preliminary Blood No Growth after 48 hours 01/08/20 19:00 Gram Stain - Preliminary Leg - Right Wound Culture - Preliminary Presumptive MRSA Assessment and Plan Assessment: Right ankle ulcer with right ankle fracture -Wound culture growing presumptive MRSA, x-ray shows no concerns of osteomyelitis, continue vancomycin as per ID recommendations. -Orthopedic surgery recommendations appreciated, follow-up in 2 weeks, boot at bedside, weightbearing as tolerated -Wound care -PT and OT consult Hypoxia -Unknown etiology -Discussed with nursing, attempt to wean oxygen -Chest x-ray ordered this morning, pending Prerenal azotemia, possibly secondary to dehydration -Gentle hydration -Monitor BMP Thrombocytopenia, close to baseline -Monitor for now A. fib -Rate controlled -Holding off on anticoagulation due to history of subdural hematoma and multiple falls History of systolic and diastolic CHF, not in acute exacerbation -Hold off on diuretics in light of active infection HTN -Hold off on anti-hypertensives in light of active infection Resolved: Hypokalemia [Patient admitted for chronic right ankle ulcer with fracture. Fracture appears to be chronic, boot at bedside, patient to work with PT and rolling walker. Wound culture positive for presumptive MRSA, continued on vancomycin. Anticipate DC to rehab on .
--- NOTE | 2020-01-10 17:20 | P.PN ---
Subjective Progress Note Date: 01/10/20 This is a 64-year-old female who is admitted for a wound in the right lower extremity. Orthopedics is following due to right ankle fracture. Patient states that she has not been able to try walking with her boot yet. Patient denies any new complaints today. Patient denies any fever/chills, numbness, weakness, tingling, abdominal pain, shortness of breath or chest pain. Objective - Vital Signs Vital signs: Vital Signs Temp 98.3 F 01/10/20 14:53 Pulse 92 01/10/20 14:53 Resp 16 01/10/20 14:53 BP 116/67 01/10/20 14:53 Pulse Ox 92 L 01/10/20 14:53 Intake & Output 01/09/20 01/10/20 01/10/20 18:59 06:59 18:59 Intake Total 700 Balance 700 Intake: Oral 700 Other: Voiding Method Bedpan Bedpan Bedpan Diaper Diaper Diaper Incontinent Incontinent # Voids 2 3 1 # Bowel Movements 1 - Exam On exam patient is sitting up comfortably in bed in no acute distress. Patient is alert and oriented 3. Walking boot in place. Sensation intact. Calf is soft and nontender to palpation. The right lower extremity is warm and well- perfused. Neurovascular status and circulatory status are intact. - Labs CBC & Chem 7: 01/08/20 06:22 01/10/20 06:49 Labs: Abnormal Lab Results - Last 24 Hours (Table) 01/10/20 Range/Units 00:50 Urine Appearance Cloudy H (Clear) Urine Protein 1+ H (Negative) Ur Leukocyte Esterase Small H (Negative) Urine WBC 14 H (0-5) /hpf Urine Bacteria Few H (None) /hpf Urine Mucus Rare H (None) /hpf Microbiology - Last 24 Hours (Table) 01/10/20 00:50 Urine Culture - Preliminary Urine,Voided 01/07/20 21:27 Blood Culture - Preliminary Blood No Growth after 48 hours 01/08/20 19:00 Gram Stain - Preliminary Leg - Right Wound Culture - Preliminary Presumptive MRSA Assessment and Plan (1) Fracture of distal end of right fibula Current Visit: Yes Status: Acute Code(s): S82.831A - OTH FRACTURE OF UPPER AND LOWER END OF RIGHT FIBULA, INIT SNOMED Code(s): 337902098 (2) Non-healing wound Current Visit: Yes Status: Acute Code(s): MME6097 - SNOMED Code(s): 389567629 (3) Fall Current Visit: No Status: Acute Code(s): W19.XXXA - UNSPECIFIED FALL, INITIAL ENCOUNTER SNOMED Code(s): 6653441 Plan: 1. Patient may be weightbearing as tolerated to the right lower extremity with walking boot. 2. Rest, ice and elevation of the right lower extremity to help with pain and swelling. 3. Continue antibiotics. 4. X-rays and CT negative. 5. No surgical intervention planned. Patient may follow up as an outpatient regarding the right ankle. Patient is awaiting rehab placement.
--- NOTE | 2020-01-10 17:44 | XR ---
EXAMINATION TYPE: XR chest 2V DATE OF EXAM: 01/10/2020 COMPARISON: 12/13/2019 HISTORY: Tachycardia TECHNIQUE: 3 views FINDINGS: There is pulmonary vascular congestion. Heart is enlarged. There is right pleural effusion. There is apparent posterior diaphragmatic hernia on the right side with loops of bowel in the doubler helper ior right lower lung field. There is subsegmental atelectasis right lower lobe. Bony thorax is intact . IMPRESSION: Right sided diaphragmatic hernia. Atelectasis in pleural reaction at the right lung base. There is probably mild heart failure. Cardiomegaly. Pulmonary congestion increased compared to last exam.
[2020-01-10] MEDS ORDERED: FUROSEMIDE 10 MG/ML 4 ML VIAL IV STA (18:31)
[2020-01-11] MEDS: METOPROLOL TARTRATE 25 MG TAB PO SCH ×2 (07:55→18:27)
[2020-01-11] MEDS: ESCITALOPRAM 5 MG TAB PO SCH (07:55)
[2020-01-11] MEDS: CALCIUM CARB-VIT D 500MG-200UN 1 EACH TAB PO SCH ×2 (07:55→18:27)
[2020-01-11] MEDS: POTASSIUM CHLORIDE ER 20 MEQ TAB.ER PO SCH (07:55)
[2020-01-11 08:17] LABS: Calcium 9.5 mg/dL (8.4-10.2); Potassium 3.8 mmol/L (3.5-5.1)
[2020-01-11] MEDS: VANCOMYCIN 1,000 MG in SODIUM CHLORIDE 0.9% 250 ML IVPB SCH ×2 (10:01→21:40)
--- NOTE | 2020-01-11 13:04 | PN ---
PROGRESS NOTE DATE OF SERVICE: 01/11/2020 REASON FOR FOLLOWUP: Right middle leg wound infection with cellulitis. INTERVAL HISTORY: Patient is currently afebrile. Patient is breathing comfortably. Denies having any chest pain or any cough. No nausea. No abdominal pain or pain to the right medial leg wound area. PHYSICAL EXAMINATION: Blood pressure 143/87, pulse of 107. Temperature 98.1. She is 93% on room air. General description: The patient is an elderly female lying in bed in no distress. Respiratory system: Unlabored breathing, clear to auscultation anteriorly. Heart S1, S2. Regular rate and rhythm. Abdomen soft, no tenderness. Right medial leg wound is dressed, no drainage on the dressing. LABS: Creatinine 0.81. Wound culture with MRSA. Blood culture has been negative. DIAGNOSTIC IMPRESSION AND PLAN: Patient with right medial ankle wound with secondary cellulitis, culture with MRSA. Currently on vancomycin to finish therapy with oral Bactrim for about a week to 10 days and close outpatient followup. MMODL / IJN: [id number] /
--- NOTE | 2020-01-11 18:04 | P.PN ---
Subjective Progress Note Date: 01/11/20 Principal diagnosis: Right ankle fracture, wound Patient was seen and examined. No acute events overnight. Patient has no complaints today. She denies any chest pain, shortness of breath or palpitations. No nausea or vomiting. No fever or chills. She is awaiting insurance authorization for rehab. Heart rate currently in the 90s. She is currently on room air saturating low 90s. Objective - Vital Signs Vital signs: Vital Signs Temp 97.3 F L 01/11/20 14:18 Pulse 90 01/11/20 14:18 Resp 17 01/11/20 14:18 BP 121/76 01/11/20 14:18 Pulse Ox 93 L 01/11/20 14:18 Intake & Output 01/10/20 01/11/20 01/11/20 18:59 06:59 18:59 Weight 72.575 kg Other: Voiding Method Bedpan Bedpan Bedpan Diaper Diaper Diaper Incontinent Incontinent Incontinent # Voids 1 2 3 # Bowel Movements 1 - Exam General: [non toxic], [no distress], [appears at stated age] Derm: [warm], [dry] Head: [atraumatic], [normocephalic], [symmetric] Eyes: [EOMI], [no lid lag], [anicteric sclera] Mouth: [no lip lesion], [mucus membranes moist] Cardiovascular: [S1S2 irregular], [no murmur], [positive DP pulse bilateral], Lungs: [CTA bilateral], [no rhonchi, no rales] , [no accessory muscle use] Abdominal: [soft], [ nontender to palpation], [no guarding], [no appreciable organomegaly] Ext: [no gross muscle atrophy], [no edema], [no contractures], [open wound right medial calf no drainage or erythema] Neuro: [no focal neuro deficits] Psych: [Alert], [oriented], [appropriate affect] - Labs CBC & Chem 7: 01/08/20 06:22 01/11/20 07:40 Labs: Abnormal Lab Results - Last 24 Hours (Table) 01/11/20 Range/Units 07:40 BUN 35 H (7-17) mg/dL Glucose 110 H (74-99) mg/dL Microbiology - Last 24 Hours (Table) 01/10/20 00:50 Urine Culture - Final Urine,Voided 01/07/20 21:27 Blood Culture - Preliminary Blood No Growth after 72 hours 01/08/20 19:00 Gram Stain - Final Leg - Right Wound Culture - Final Methicillin resist S. aureus Assessment and Plan Assessment: Right ankle ulcer with right ankle fracture -Wound culture growing MRSA, x-ray shows no concerns of osteomyelitis, continue vancomycin as per ID recommendations and transitioned to Bactrim for discharge. -Orthopedic surgery recommendations appreciated, follow-up in 2 weeks, boot at bedside, weightbearing as tolerated -Wound care -PT and OT consult Prerenal azotemia, possibly secondary to dehydration -Gentle hydration -Monitor BMP Thrombocytopenia, close to baseline -Monitor for now A. fib -Rate controlled on metoprolol -Holding off on anticoagulation due to history of subdural hematoma and multiple falls History of systolic and diastolic CHF, not in acute exacerbation -Hold off on diuretics in light of active infection HTN -Continue metoprolol Her hypoxia is likely related to mild exacerbation of CHF for which she was given Lasix 40 mg IV yesterday. Her hypoxia is improving and she is currently on room air satting low 90s. Resolved: Hypokalemia, hypoxia [Patient admitted for chronic right ankle ulcer with fracture. Fracture appears to be chronic, boot at bedside, patient to work with PT and rolling walker. Wound culture positive for presumptive MRSA, continued on vancomycin, to be discharged on Bactrim. Anticipate DC to rehab on .]
[2020-01-12] MEDS: ESCITALOPRAM 5 MG TAB PO SCH (07:45)
[2020-01-12] MEDS: METOPROLOL TARTRATE 25 MG TAB PO SCH (07:45)
[2020-01-12] MEDS: POTASSIUM CHLORIDE ER 20 MEQ TAB.ER PO SCH (07:45)
[2020-01-12] MEDS: CALCIUM CARB-VIT D 500MG-200UN 1 EACH TAB PO SCH (07:45)
[2020-01-12 07:56] VITALS: TEMP 97.5
[2020-01-12] MEDS ORDERED: VANCOMYCIN TROUGH DUE 1 EACH MISC MISCELLANE ONE (09:00)
[2020-01-12 09:58] LABS: African American GFR (CKD) >90 (>60 ml/min/1.73 sqM); Non-African American GFR(CKD) 81 (>60 ml/min/1.73 sqM)
[2020-01-12] MEDS: VANCOMYCIN 1,000 MG in SODIUM CHLORIDE 0.9% 250 ML IVPB SCH (10:59)
--- NOTE | 2020-01-12 12:52 | P.DS ---
Providers Date of admission: 01/09/20 13:02 Expected date of discharge: 01/12/20 Attending physician: Jerrell Kruse MD Consults: 01/08/20 02:27 Consult Physician Urgent Consulting Provider: Lukas Ness Consult Reason/Comments: Ankle ulcer Do you want consulting provider notified?: Yes 01/08/20 07:23 Consult Physician Routine Consulting Provider: Rubens Ibanez Consult Reason/Comments: Left ankle Fx in [place] now unable to bear weight Do you want consulting provider notified?: Yes [facility] care [facility] Course: The patient is a 64-year-old female with a PMH of severe learning disability, Marfan syndrome, systolic and diastolic CHF, A. fib (not on anticoagulation due to recent history of subdural hematoma), abdominal aortic aneurysm, and pancreatic cysts, who was sent in the EMS for a right leg ulcer. The history is provided by the legal guardian (the [id number] [place] Marvin at the bedside). She notes that the patient lives at an apartment with 24-hour staffing (not assisted living or independent living). She notes that roughly one month ago, the patient had developed right ankle swelling with subsequent development of a blister on the medial aspect of the ankle. The blister then turned into an ulcer which gradually increased in size with some drainage. Patient was seen by her PMD and was given a course of Keflex which she recently finished. The patient however had recently been appearing to not being herself as per her staff members and was requiring a lot more assistance with ambulation. There thereby became concerned and sent her into the ED. The patient notes pain at the site of the ulcer, rated at a 4 out of 10, with no clear alleviating or exacerbating features. The patient normally ambulates with a walker though hasn't been requiring a lot more assistance recently. The patient denied any additional complaints. She denied fever or chills. Denied chest pain, shortness of breath, or cough. She also denied abdominal pain, nausea, vomiting, or diarrhea. In the ED, right tibial x-ray revealed a healing right distal fibula fracture. Laboratory evaluation revealed a WBC count of 7.9, platelets 135, lactate 1.2, sodium 140, potassium 3.7, BUN 30, and creatinine 0.93. Orthopedic surgery was consulted for right ankle fracture. Orthopedic surgery recommended that this fracture is essentially nondisplaced and appears to be healing well, at least 2-3 weeks old, advised weightbearing as tolerated with boot. She was initially started on vancomycin and Rocephin for concerns of osteomyelitis. Osteomyelitis was not noted on x-ray. Infectious disease was consulted and recommended wound culture. Wound culture was positive for MRSA. Infectious disease recommended 10 days of Bactrim on discharge. Patient was seen and examined. No acute events overnight. Patient reports no complaints. She denies any chest pain, shortness of breath or palpitations. No nausea or vomiting. No fever or chills. General: [non toxic], [no distress], [appears at stated age] Derm: [warm], [dry] Head: [atraumatic], [normocephalic], [symmetric] Eyes: [EOMI], [no lid lag], [anicteric sclera] Mouth: [no lip lesion], [mucus membranes moist] Cardiovascular: [S1S2 reg], [no murmur], [positive DP pulse bilateral], Lungs: [CTA bilateral], [no rhonchi, no rales] , [no accessory muscle use] Abdominal: [soft], [ nontender to palpation], [no guarding], [no appreciable organomegaly] Ext: [no gross muscle atrophy], [no edema], [no contractures], [open wound right medial calf no drainage or erythema] Neuro: [no focal neuro deficits] Psych: [Alert], [oriented], [appropriate affect] Right ankle ulcer with right ankle fracture -Wound culture shows MRSA, x-ray shows no concerns of osteomyelitis, patient to complete 10 days of Bactrim. -Orthopedic surgery recommendations appreciated, follow-up in 2 weeks, boot at bedside, weightbearing as tolerated -Wound care -PT and OT consult Prerenal azotemia, possibly secondary to dehydration -Gentle hydration -Monitor BMP Thrombocytopenia, close to baseline -Monitor for now A. fib -Rate controlled -Holding off on anticoagulation due to history of subdural hematoma and multiple falls History of systolic and diastolic CHF, not in acute exacerbation -Hold off on diuretics in light of active infection HTN -Hold off on anti-hypertensives in light of active infection Resolved: Hypokalemia, hypoxia [Patient admitted for chronic right ankle ulcer with fracture. Fracture appears to be chronic, boot at bedside, patient to work with PT and rolling walker. Wound culture shows MRSA to complete 10 more days of Bactrim. Anticipate DC to [facility] today. This complex discharge took about 35 minutes to complete.] Pertinent Studies: Ankle x-ray, tibia and fibula x-ray, femur x-ray, pelvic CT, chest x-ray Patient Condition at Discharge: Stable Plan - Discharge Summary Discharge Rx Participant: Yes New Discharge Prescriptions: New Sulfamethox-Tmp 800-160Mg [Bactrim DS 800-160 mg] 1 tab PO Q12HR #20 tab Continue Escitalopram [Lexapro] 15 mg PO DAILY@0700 Spironolactone [Aldactone] 25 mg PO BID@0700,1900 Potassium Chloride ER [K-Dur 20] 20 meq PO DAILY@0700 Ferrous Sulfate [Iron (65 MG Elemental)] 325 mg PO DAILY@1900 Esomeprazole Magnesium [NexIUM] 40 mg PO DAILY@0600 Calcium Carbonate/Vitamin D3 [Calcium 600-Vit D3 500 Softgel] 1 cap PO DAILY@0700,1900 Furosemide [Lasix] 40 mg PO DAILY@0900 Losartan [Cozaar] 25 mg PO DAILY@0700 Ketoconazole [Ketoconazole 2%] 1 applic TOPICAL DAILY@1900 Wheat Dextrin [Benefiber] 2 tsp PO BID@0700,1600 Metoprolol Tartrate [Lopressor] 25 mg PO BID@0700,1900 Acetaminophen Tab [Tylenol] 500 - 1,000 mg PO DAILY PRN PRN Reason: Pain Docusate [Colace] 100 mg PO DAILY PRN PRN Reason: Constipation Certavite Multivitamin 1 tab PO DAILY@1600 Discharge Medication List Calcium Carbonate/Vitamin D3 [Calcium 600-Vit D3 500 Softgel] 1 cap PO DAILY@0700,1900 10/17/18 [History] Escitalopram [Lexapro] 15 mg PO DAILY@0700 10/17/18 [History] Esomeprazole Magnesium [NexIUM] 40 mg PO DAILY@0600 10/17/18 [History] Ferrous Sulfate [Iron (65 MG Elemental)] 325 mg PO DAILY@1900 10/17/18 [History] Furosemide [Lasix] 40 mg PO DAILY@0900 10/17/18 [History] Potassium Chloride ER [K-Dur 20] 20 meq PO DAILY@0700 10/17/18 [History] Spironolactone [Aldactone] 25 mg PO BID@0700,1900 10/17/18 [History] Ketoconazole [Ketoconazole 2%] 1 applic TOPICAL DAILY@189901/10/19 [History] Losartan [Cozaar] 25 mg PO DAILY@0701/10/19 [History] Wheat Dextrin [Benefiber] 2 tsp PO BID@0700,1600 07/15/19 [History] Metoprolol Tartrate [Lopressor] 25 mg PO BID@0700,19012/13/19 [History] Acetaminophen Tab [Tylenol] 500 - 1,000 mg PO DAILY PRN 01/07/20 [History] Certavite Multivitamin 1 tab PO DAILY@159901/07/20 [History] Docusate [Colace] 100 mg PO DAILY PRN 01/07/20 [History] Sulfamethox-Tmp 800-160Mg [Bactrim DS 800-160 mg] 1 tab PO Q12HR #20 tab 01/11/20 [Rx] Follow up Appointment(s)/Referral(s): Alonso Capellan DO [Medical Doctor] - 01/26/20 1:30 pm (Call if unable to attend. ) None,Stated [REFERRING] - 1-2 days Terrell Paige [NON-STAFF] - (Call with any questions regarding equalizer boot. ) Patient Instructions/Handouts: Ankle Fracture (DC), Cellulitis (DC), Fall Prevention for Older Adults (DC) Activity/Diet/Wound Care/Special Instructions: Diet: Heart healthy Follow-up PCP within 3 days of discharge. Follow-up with orthopedic surgery within 2 weeks of discharge. Take all medications as advised. Weightbearing as tolerated with walking boot. Please call [facility] with any questions or concerns, . Discharge Disposition: TRANSFER TO SNF/ECF
--- NOTE | 2020-01-12 15:02 | PN ---
PROGRESS NOTE DATE OF SERVICE: 01/12/2020 REASON FOR FOLLOW UP: Right middle leg wound with secondary infection. INTERVAL HISTORY: Patient is currently afebrile. Patient is breathing comfortably. Denies having any chest pain or any cough. No nausea, vomiting, no abdominal pain or any pain to the right middle leg wound area. PHYSICAL EXAMINATION: Blood pressure 129/81, with a pulse of 97, temperature 97.5. She is 95% on room air. General description: The patient is an elderly female up in the chair in no distress. Respiratory system: Unlabored breathing. Clear to auscultation anteriorly. Heart S1, S2. Regular rate and rhythm. Abdomen soft, no tenderness. Right middle leg wound currently dressed up, no obvious drainage on the dressing. LABS: Creatinine 0.7, white count 17.7. DIAGNOSTIC IMPRESSION AND PLAN: Patient with MRSA right middle leg wound infection with secondary cellulitis. Patient on vancomycin. She will finish therapy with oral Bactrim DS. Local care with dry Aquacel silver dressing and close outpatient followup. MMODL / IJN: [id number] /
[2020-01-12 15:07] VITALS: BP 114/72; PULSE 100; RESP 17
--- NOTE | 2020-01-17 06:04 | CDI ---
Documentation Clarification Form Date: 01/17/2020 From: Elpidio Burkett Phone: If you have a question about this query, please contact Maci Cortes, Pilates Coordinator at [phone] between 8am and 5pm. Admit Date: 01/09/2020 Discharge Date: 01/12/2020 Patient Name: Rachel Marvin I Visit Number: [id number] ATTENTION: The Clinical Documentation Specialists (CDI) and [facility] Coding Staff appreciate your assistance in clarifying documentation. Please respond to the clarification below the line at the bottom and electronically sign. The CDI & [facility] Coding staff will review the response and follow-up if needed. Please note: Queries are made part of the Legal Health Record. If you have any questions, please contact the author of this message via ITS. Dear Gunjan Mauro., Atrial Fibrillation is documented in DS as "A. fib -Rate controlled". History/Risk Factors: Systolic and diastolic CHF, HTN, Cellulitis Treatment: -Holding off on anticoagulation due to history of subdural hematoma and multiple falls Patient is a 64-year-old female with a past medical history significant for Marfan syndrome atrial fibrillation found to have Right ankle ulcer with right ankle fracture. Atrial fibrillation -Holding off on anticoagulation due to history of subdural hematoma and multiple falls In your professional opinion, can you please clarify the type of Atrial Fibrillation, if known? Chronic/Permanent Paroxysmal Persistent Other, please specify Unable to determine chronic __ MTDD
== END 2020-01-12 15:07 | DRG 593 ==
LOC: EC 20:56 → 4SSUR 01-08 01:53 → OBSVTOIN 01-09 13:02
PROVIDERS: ADMIT Internal Medicine; ATTEND Internal Medicine
DX: L97.319 Non-pressure chronic ulcer of right ankle with unspecified severity (principal); Q87.40 Marfan syndrome, unspecified; L03.115 Cellulitis of right lower limb; I50.42 Chronic combined systolic (congestive) and diastolic (congestive) heart failure; I48.20 Chronic atrial fibrillation, unspecified; S82.831A Other fracture of upper and lower end of right fibula, initial encounter for closed fracture; D69.6 Thrombocytopenia, unspecified; F79 Unspecified intellectual disabilities; I11.0 Hypertensive heart disease with heart failure; W19.XXXA Unspecified fall, initial encounter; R29.6 Repeated falls; R09.02 Hypoxemia; R00.0 Tachycardia, unspecified; E86.0 Dehydration; E87.6 Hypokalemia; B95.62 Methicillin resistant Staphylococcus aureus infection as the cause of diseases classified elsewhere; R53.81 Other malaise; Z11.59 Encounter for screening for other viral diseases; Z79.899 Other long term (current) drug therapy; Z86.19 Personal history of other infectious and parasitic diseases
CPT/HCPCS: 36415; 71046; 72192; 80048; 80053; 80202; 81001; 82565; 83605; 85025; 85027; 87040; 87070; 87077; 87086; 87186; 87205; 96365; 96366; 96375; 99285

== ENCOUNTER → 2020-03-08 | Outpatient (CLI) | payer MEDICARE, OTHER ==
--- NOTE | 2020-03-08 10:09 | CT ---
EXAMINATION TYPE: CT chest wo con DATE OF EXAM: 03/08/2020 COMPARISON: Outside CTA September 01, 2019. HISTORY: Upper Left sided chest discomfort CT DLP: 320.4 mGycm. Automated Exposure Control for Dose Reduction was Utilized. TECHNIQUE: CT scan of the thorax is performed without IV contrast.1 IV contrast not given due to wor sening renal function over Labs. FINDINGS: LUNGS: Persistent elevated and eventrated posterior aspect right hemidiaphragm with associated right basilar atelectasis and/or consolidation. Left lung remains clear. No significant pleural effusion or pneumothorax seen bilaterally. No suspicious masses. MEDIASTINUM: Lack of IV contrast is noted to limit evaluation for mediastinal and especially hilar ad enopathy. There are no definitive greater than 1 cm hilar or mediastinal lymph nodes. Small to modera te-sized pericardial effusion is increased from prior measuring up to 15 mm in thickness axial image 45 along the posterior aspect. Gross cardiomegaly redemonstrated. Persistent severe left atrial and m oderate right atrial dilatation. Persistent [id number] left ventricular dilatation. Mild to mod erate coronary artery calcification redemonstrated. Enlarged right and left pulmonary arteries redemo nstrated consistent with underlying pulmonary hypertension. Ascending aorta measures up to 4.8 cm karen meter image 29 not significantly changed from prior study. No extension into the arch or descending a austin is present. OTHER: Slightly lobulated contour to visualize liver redemonstrated. Vascular calcification along cou rse of the tortuous splenic artery redemonstrated. Underlying scoliosis with mild/moderate multilevel spurring in the thoracic spine. Exaggerated upper thoracic kyphosis. Occasional calcifications throu ghout the spleen. IMPRESSION: Stable 4.8 cm ascending aortic aneurysm. Stable marked cardiomegaly with marked left atri al dilatation. Underlying pulmonary artery hypertension redemonstrated. Chronic changes without new a cute process identified.
== END | disposition home or self-care (01) ==
LOC: RADCTMAIN 07:45
PROVIDERS: ATTEND Thoracic Surgery (Cardiothoracic Vascular Surgery)
DX: I71.2 Thoracic aortic aneurysm, without rupture (principal); I51.7 Cardiomegaly; I27.20 Pulmonary hypertension, unspecified; I27.21 Secondary pulmonary arterial hypertension
CPT/HCPCS: 36415; 71250; 82565; 84520

== ENCOUNTER 2020-04-27 17:11 | Emergency (ER) | payer MEDICARE, OTHER ==
[2020-04-27 17:26] VITALS: PULSE 86; RESP 16; TEMP 98.9
--- NOTE | 2020-04-27 18:02 | ED ---
General Adult HPI - General Chief complaint: Extremity Problem,Nontraumatic Stated complaint: Possible Blood Clot Time Seen by Provider: 04/27/20 17:13 Source: patient, family, EMS, RN notes reviewed, old records reviewed Mode of arrival: EMS Limitations: no limitations - History of Present Illness Initial comments: 64-year-old female history of Marfan syndrome presenting from group home with duplex arterial study of the lower extremities indicating that the patient may have bilateral popliteal thrombus. Patient herself has no complaints. She is minimally ambulatory at baseline. She's had some nonhealing wounds of the right lower extremity. She denies pain. She denies numbness or tingling in the legs. - Related Data Home Medications Medication Instructions Recorded Confirmed Calcium Carbonate/Vitamin D3 1 cap PO DAILY@0700,189910/17/18 01/07/20 [Calcium 600-Vit D3 500 Softgel] Escitalopram [Lexapro] 15 mg PO DAILY@0710/17/18 01/07/20 Esomeprazole Magnesium [NexIUM] 40 mg PO DAILY@59910/17/18 01/07/20 Ferrous Sulfate [Iron (65 MG 325 mg PO DAILY@189910/17/18 01/07/20 Elemental)] Furosemide [Lasix] 40 mg PO DAILY@0900 10/17/18 01/07/20 Potassium Chloride ER [K-Dur 20] 20 meq PO DAILY@0710/17/18 01/07/20 Spironolactone [Aldactone] 25 mg PO BID@0700,189910/17/18 01/07/20 Ketoconazole [Ketoconazole 2%] 1 applic TOPICAL DAILY@189901/10/19 01/07/20 Losartan [Cozaar] 25 mg PO DAILY@0701/10/19 01/07/20 Wheat Dextrin [Benefiber] 2 tsp PO BID@0700,159907/15/19 01/07/20 Metoprolol Tartrate [Lopressor] 25 mg PO BID@0700,189912/13/19 01/07/20 Acetaminophen Tab [Tylenol] 500 - 1,000 mg PO DAILY PRN 01/07/20 01/07/20 Certavite Multivitamin 1 tab PO DAILY@159901/07/20 01/07/20 Docusate [Colace] 100 mg PO DAILY PRN 01/07/20 01/07/20 Previous Rx's Medication Instructions Recorded Sulfamethox-Tmp 800-160Mg [Bactrim 1 tab PO Q12HR #20 tab 01/11/20 DS 800-160 mg] Allergies Allergy/AdvReac Type Severity Reaction Status Date / Time No Known Allergies Allergy Verified 01/07/20 22:41 Review of Systems ROS Statement: Those systems with pertinent positive or pertinent negative responses have been documented in the HPI. ROS Other: All systems not noted in ROS Statement are negative. 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, VRE Date of last positivie culture/infection: 01/08/20 MRSA; 08/31/19 VRE MDRO Source:: Left Leg-MRSA; Urine-VRE Additional Past Surgical History / Comment(s): hip and bilateral knees Past Psychological History: No Psychological Hx Reported Smoking Status: Never smoker Past Alcohol Use History: None Reported Past Drug Use History: None Reported - Past Family History Family Family Medical History: Unable to Obtain General Exam Limitations: no limitations General appearance: alert, in no apparent distress Head exam: Present: atraumatic, normocephalic Eye exam: Present: normal appearance, PERRL ENT exam: Present: normal exam, normal oropharynx Neck exam: Present: normal inspection, tenderness Respiratory exam: Present: normal lung sounds bilaterally. Absent: respiratory distress Cardiovascular Exam: Present: regular rate, normal rhythm GI/Abdominal exam: Present: soft. Absent: distended, tenderness, guarding Extremities exam: Present: other (Patient's lower extremities are warm to the touch, normal cap refill, normal sensation, she has some wounds on the right lower extremity which have dressings applied, these are clean and intact, no surrounding cellulitis. She has Doppler signal in both the DP and PT pulses bilaterally.) Course Vital Signs 04/27/20 17:21 Temperature 98.9 F Pulse Rate 86 Respiratory 16 Rate Blood Pressure 92/64 O2 Sat by Pulse 99 Oximetry Medical Decision Making - Medical Decision Making 64-year-old female presenting with abnormal ultrasound test performed on an outpatient basis. Patient has no complaints. There was concern for thrombus in the bilateral popliteal arteries. Patient has Doppler signal bilaterally, extremities are warm. I discussed case with the primary care physician Dr. Fabian who is familiar with these test results. I did speak with Dr. Ponce regarding this patient's presentation and findings. He he believes these are likely chronic given the presence of distal arterial flow on exam. The patient's sister who is at bedside was uncertain if she wanted the patient evaluated for this. The sister does indicate that she had a known arterial thrombus in her popliteal artery. She had previously been anticoagulated however she had cranial hemorrhage and was taken off anticoagulation. Patient's sister are agreeable with discharge and outpatient follow-up. I did inform Dr. Fabian of vascular surgery recommendations for outpatient follow-up and arterial Doppler as an outpatient. There was no further need for further testing or evaluation at this time. All parties are agreeable with disposition. Disposition Clinical Impression: Peripheral arterial disease Disposition: HOME SELF-CARE Instructions (If sedation given, give patient instructions): Peripheral Vascular Disease (ED) Additional Instructions: Please follow up with the vascular surgeon Dr. Ponce. Is patient prescribed a controlled substance at d/c from ED?: No Referrals: Nathaniel Fabian MD [Primary Care Provider] - 1-2 days Hitesh Ponce DO [Doctor of Osteopathic Medicine] - 1-2 days Time of Disposition: 18:01
[2020-04-27 18:44] VITALS: BP 93/60
== END 2020-04-27 18:42 | disposition home or self-care (01) ==
LOC: EC 17:11
DX: I73.9 Peripheral vascular disease, unspecified (principal); Z79.899 Other long term (current) drug therapy
CPT/HCPCS: 99283